=== PATIENT | male | born 1955 | race Hispanic/Latino ===

== ENCOUNTER 2016-09-09 18:29 | Emergency (ER) | payer MEDICAID ==
[2016-09-09 20:22] LABS: Hematocrit 37.1 % (35.5-45.6); Hemoglobin 12.6 gm/dl (11.8-15.2); Mean Corpuscular HGB Conc 34 % (32-34); Mean Corpuscular Hemoglobin 32 pg (28-32); Mean Corpuscular Volume 95 fl (84-94); Platelet Count 218 K/mm3 (140-440); Red Blood Count 3.92 M/mm3 (3.65-5.03); Red Cell Distribution Width 14.4 % (13.2-15.2)
[2016-09-09 20:25] LABS: White Blood Count 22.3 K/mm3 (4.5-11.0)
[2016-09-09 20:41] LABS: Anion Gap 20 mmol/L; BUN/Creatinine Ratio 18.33; Blood Urea Nitrogen 11 mg/dL (9-20); Calcium 8.4 mg/dL (8.4-10.2); Carbon Dioxide 20 mmol/L (22-30); Chloride 91.2 mmol/L (98-107); Glucose 142 mg/dL (75-100); Potassium 3.9 mmol/L (3.6-5.0); Sodium 127 mmol/L (137-145)
[2016-09-09 20:45] LABS: Bacteria,Urine 2+ /HPF (Negative); Bilirubin,Urine NEG (Negative); Blood,Urine MOD (Negative); Ketones,Urine TR mg/dL (Negative); Leukocyte Esterase,Urine MOD (Negative); Mucus,Urine 1+ /HPF; Nitrite,Urine POS (Negative); Urobilinogen,Urine < 2.0 mg/dL (<2.0)
[2016-09-09 21:01] LABS: Basophils % (Manual) 0 % (0.0-1.8); Blastocytes % (Manual) 0 %; Eosinophils % (Manual) 0 % (0.0-4.3)
[2016-09-09 21:02] LABS: Anisocytosis Few; Diff Status Complete
[2016-09-10 02:47] VITALS: BP 125/90
[2016-09-10] MEDS ORDERED: NACL 0.9% 1000 ML 1,000 ML IV ONE (03:48)
--- NOTE | 2016-09-10 03:54 | Emergency Department Report ---
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 Symptoms been going on for last 3 days. The tried some topical medication without significant improvement in symptoms. Had a temperature at home of 99.2. Per the caregiver he is at baseline mental status currently and he is unable to communicate any symptoms. - Related Data Home Medications Medication Instructions Recorded Confirmed Last Taken Calcium Carbonate/Vitamin D3 200 units PO DAILY 12/05/15 12/05/15 12/05/15 [Calcium 500 + D Tablet] Ergocalciferol (Vitamin D2) 2,000 tab PO DAILY 12/05/15 12/05/15 12/05/15 08:00 [Vitamin D2] Multivit with Calcium,Iron,Min 1 tab PO DAILY 12/05/15 12/05/15 12/05/15 [Therapeutic M] OXcarbazepine [Trileptal] 1.5 mg PO BID 12/05/15 12/05/15 12/05/15 08:00 Omeprazole 20 mg PO DAILY 12/05/15 12/05/15 12/05/15 Quetiapine Fumarate [SEROquel XR] 400 mg PO BID 12/05/15 12/05/15 12/05/15 Tamsulosin [Flomax] 0.4 mg PO BID 12/05/15 12/05/15 12/05/15 08:00 Previous Rx's Medication Instructions Recorded Last Taken Type Polyethylene Glycol 3350 [Miralax 17 gm PO QDAY #30 packet 12/04/15 12/05/15 Rx 3350] Lactulose [Cephulac] 20 gm PO QDAY #120 ml 12/05/15 Unknown Rx Ondansetron [Zofran ODT TAB] 8 mg PO Q8HR #20 tab.rapdis 12/05/15 Unknown Rx Ibuprofen [Motrin 800 MG tab] 800 mg PO Q8HR PRN #30 tablet 04/06/16 Unknown Rx Acetaminophen [Acetaminophen TAB] 500 mg PO Q6HR #20 tablet 09/10/16 Unknown Rx Sulfamethoxazole/Trimethoprim 1 each PO BID #14 tablet 09/10/16 Unknown Rx [Bactrim DS TAB] Allergies Allergy/AdvReac Type Severity Reaction Status Date / Time No Known Allergies Allergy Verified 11/09/14 08:41 ED Review of Systems ROS: Stated complaint: RASH/FEVER Other details as noted in HPI Comment: Unobtainable due to pts medical conditions ED Past Medical Hx - Past Medical History Previous Medical History?: Yes Hx Congestive Heart Failure: (Unknown) Hx Diabetes: (Unknown) Hx Deep Vein Thrombosis: No Hx Renal Disease: (urinary retention) Hx Psychiatric Treatment: Yes (MR) Hx Asthma: (Unknown) Hx COPD: (Unknown) Additional medical history: MR. dysphagia. myopia. high cholesterol. chronic constipation - Surgical History Past Surgical History?: Yes Hx Pacemaker: No Hx Internal Defibrillator: No Additional Surgical History: volvulus with partial colectomy. indwelling suprapubic urinary catheter - Social History Smoking Status: Never Smoker Substance Use Type: None - Medications Home Medications: Home Medications Medication Instructions Recorded Confirmed Last Taken Type Polyethylene Glycol 3350 [Miralax 17 gm PO QDAY #30 packet 12/04/15 12/05/15 Rx 3350] Calcium Carbonate/Vitamin D3 200 units PO DAILY 12/05/15 12/05/15 12/05/15 History [Calcium 500 + D Tablet] Ergocalciferol (Vitamin D2) 2,000 tab PO DAILY 12/05/15 12/05/15 12/05/15 08:00 History [Vitamin D2] Lactulose [Cephulac] 20 gm PO QDAY #120 ml 12/05/15 Unknown Rx Multivit with Calcium,Iron,Min 1 tab PO DAILY 12/05/15 12/05/15 12/05/15 History [Therapeutic M] OXcarbazepine [Trileptal] 1.5 mg PO BID 12/05/15 12/05/15 12/05/15 08:00 History Omeprazole 20 mg PO DAILY 12/05/15 12/05/15 12/05/15 History Ondansetron [Zofran ODT TAB] 8 mg PO Q8HR #20 tab.rapdis 12/05/15 Unknown Rx Quetiapine Fumarate [SEROquel XR] 400 mg PO BID 12/05/15 12/05/15 12/05/15 History Tamsulosin [Flomax] 0.4 mg PO BID 12/05/15 12/05/15 12/05/15 08:00 History Ibuprofen [Motrin 800 MG tab] 800 mg PO Q8HR PRN #30 tablet 04/06/16 Unknown Rx Acetaminophen [Acetaminophen TAB] 500 mg PO Q6HR #20 tablet 09/10/16 Unknown Rx Sulfamethoxazole/Trimethoprim 1 each PO BID #14 tablet 09/10/16 Unknown Rx [Bactrim DS TAB] ED Physical Exam - General Limitations: Other (mental retardation) - Head Head exam: Present: atraumatic - Eye Eye exam: Present: normal appearance - ENT ENT exam: Present: mucous membranes dry - Neck Neck exam: Present: other (slight redness across anterior neck) - Respiratory Respiratory exam: Present: other - Cardiovascular Cardiovascular Exam: Present: regular rate, normal rhythm - GI/Abdominal GI/Abdominal exam: Present: soft. Absent: distended, tenderness - Neurological Exam Neurological exam: Present: other (nonsensical words, awake, alert) - Psychiatric Psychiatric exam: Present: normal mood - Skin Skin exam: Present: other (bilateral axilla with macular rash, no significant lymphadenopathy) ED Course Vital Signs 09/09/16 09/10/16 09/10/16 19:54 02:41 02:45 Temperature 98.6 F 97.7 F Pulse Rate 101 H 89 Respiratory 20 18 20 Rate Blood Pressure 126/82 Blood Pressure 125/90 [Left] O2 Sat by Pulse 99 99 99 Oximetry ED Medical Decision Making - Lab Data Result diagrams: 09/09/16 20:14 09/09/16 20:14 - Medical Decision Making Labs show elevated white count but no clear source of serious infection, the maxillary and neck rash may be zoster but no vesicles. The patient's urinalysis does show some bacteria and leukocyte esterase is positive however given that he has a suprapubic cath this may be baseline. Critical care attestation.: If time is entered above; I have spent that time in minutes in the direct care of this critically ill patient, excluding procedure time. ED Disposition Clinical Impression: Cellulitis Qualifiers: Site of cellulitis: unspecified site Qualified Code(s): L03.90 - Cellulitis, unspecified Disposition: DISCHARGED TO HOME OR SELFCARE Is pt being admited?: No Does the pt Need Aspirin: No Condition: Stable Additional Instructions: Please follow up with the primary care physician in the next 3-5 days. Return to the ER if your symptoms significantly worsen or you develop new symptoms. Prescriptions: Acetaminophen [Acetaminophen TAB] 500 mg PO Q6HR #20 tablet Sulfamethoxazole/Trimethoprim [Bactrim DS TAB] 1 each PO BID #14 tablet Referrals: PRIMARY CARE, [Primary Care Provider] - 3-5 Days
--- NOTE | 2016-09-10 07:22 | XRay Report ---
AP CHEST: HISTORY: Pneumonia, fever Compared to 12/04/15. There is poor inspiration. There is subtle airspace opacity in the left lower lobe behind the heart. This could represent an early infiltrate or segmental atelectasis. The remainder of the lungs are clear. No pleural effusion or pneumothorax. Normal heart and mediastinal structures. Colonic interposition is suspected overlying the liver. IMPRESSION: Possible early left lower lobe infiltrate versus segmental atelectasis.
== END 2016-09-10 07:01 | disposition home or self-care (01) ==
LOC: ED 18:29
DX: L03.90 Cellulitis, unspecified (principal); F79 Unspecified intellectual disabilities
CPT/HCPCS: 36415; 71010; 80048; 81001; 85007; 85025; 96360; 99284; J7030

== ENCOUNTER 2016-10-06 20:01 | Inpatient (IN) | payer MEDICAID ==
[2016-10-06 21:32] LABS: Hematocrit 37.2 % (35.5-45.6); Hemoglobin 12.6 gm/dl (11.8-15.2); Mean Corpuscular HGB Conc 34 % (32-34); Mean Corpuscular Hemoglobin 32 pg (28-32); Mean Corpuscular Volume 95 fl (84-94); Platelet Count 274 K/mm3 (140-440); Red Blood Count 3.92 M/mm3 (3.65-5.03); Red Cell Distribution Width 13.9 % (13.2-15.2); White Blood Count 5.7 K/mm3 (4.5-11.0)
[2016-10-06 21:38] LABS: Alanine Aminotransferase 24 units/L (7-56); Albumin 3.9 g/dL (3.9-5); Albumin/Globulin Ratio 1.2 %; Alkaline Phosphatase 60 units/L (35-129); Anion Gap 19 mmol/L; BUN/Creatinine Ratio 13.33; Blood Urea Nitrogen 8 mg/dL (9-20); Calcium 8.9 mg/dL (8.4-10.2); Carbon Dioxide 22 mmol/L (22-30); Chloride 83.5 mmol/L (98-107); Glucose 100 mg/dL (75-100); Lipase 22 units/L (13-60); Potassium 4.4 mmol/L (3.6-5.0); Sodium 120 mmol/L (137-145); Total Protein 7.1 g/dL (6.3-8.2)
[2016-10-06 22:23] LABS: Bacteria,Urine 2+ /HPF (Negative); Bilirubin,Urine NEG (Negative); Blood,Urine MOD (Negative); Ketones,Urine NEG (Negative); Leukocyte Esterase,Urine LG (Negative); Mucus,Urine FEW /HPF; Nitrite,Urine POS (Negative); Urobilinogen,Urine < 2.0 mg/dL (<2.0)
[2016-10-06 22:30] LABS: Anisocytosis 1+; Basophils % (Manual) 0 % (0.0-1.8); Blastocytes % (Manual) 0 %; Diff Status Complete; Platelet Estimate Consistent w Auto
--- NOTE | 2016-10-07 07:32 | Emergency Department Report ---
HPI - General Chief Complaint: Abdominal Pain Time Seen by Provider: 10/07/16 07:15 - HPI HPI: This is a 61-year-old male who presents to the emergency department from his group longterm with complaint of abdominal pain and decreased urine output. The patient has a past medical history of some type of mental retardation for which she [facility]. He also has a history of a suprapubic catheter and some nonspecific bowel surgery in the past. The patient is a poor historian secondary to his history of mental retardation. He is here with a sales account leader who is answering most questions. Despite the fact that he has a suprapubic catheter, the sales account leader says that he has not been putting out much urine and that he appeared only put out about 300 mL over the past 24 hours. He does not communicate but does appear to have grimacing when his abdomen is palpated. The patient was recently admitted to [facility] and discharged earlier in the month for some constipation and abdominal pain issues at that time. No recent travel. ED Past Medical Hx - Past Medical History Hx Congestive Heart Failure: (Unknown) Hx Diabetes: (Unknown) Hx Deep Vein Thrombosis: No Hx Renal Disease: (urinary retention) Hx Psychiatric Treatment: Yes (MR) Hx Asthma: (Unknown) Hx COPD: (Unknown) Additional medical history: MR. dysphagia. myopia. high cholesterol. chronic constipation - Surgical History Hx Pacemaker: No Hx Internal Defibrillator: No Additional Surgical History: volvulus with partial colectomy. indwelling suprapubic urinary catheter - Social History Smoking Status: Never Smoker - Medications Home Medications: Home Medications Medication Instructions Recorded Confirmed Last Taken Type Calcium Carbonate/Vitamin D3 200 units PO DAILY #30 tablet 10/01/16 Unknown Rx [Calcium 500 + D Tablet] Ergocalciferol (Vitamin D2) 2,000 tab PO DAILY #30 tablet 10/01/16 Unknown Rx [Vitamin D2] Haloperidol [Haldol] 2 mg PO Q8H PRN #90 tablet 10/01/16 Unknown Rx Hydrochlorothiazide [HCTZ] 25 mg PO QDAY #30 tablet 10/01/16 Unknown Rx Lactulose [Cephulac] 20 gm PO QDAY #120 ml 10/01/16 Unknown Rx Lisinopril [Zestril TAB] 40 mg PO QDAY #30 tablet 10/01/16 Unknown Rx Magnesium Hydroxide [Milk of 30 ml PO Q4H PRN #30 oral.liqd 10/01/16 Unknown Rx Magnesia] Multivit with Calcium,Iron,Min 1 tab PO DAILY #30 tablet 10/01/16 Unknown Rx [Therapeutic M] OXcarbazepine [Trileptal] 450 mg PO BID #60 tablet 10/01/16 Unknown Rx Pantoprazole [Protonix TAB] 20 mg PO QDAY #30 tablet. 10/01/16 Unknown Rx Polyethylene Glycol 3350 [Miralax 17 gm PO QDAY #30 packet 10/01/16 Unknown Rx 3350] QUEtiapine [SEROquel] 400 mg PO BID #60 tablet 10/01/16 Unknown Rx Tamsulosin [Flomax] 0.4 mg PO BID #60 capsule 10/01/16 Unknown Rx ED Review of Systems ROS: Stated complaint: DIFFICULTY URINATING, COUGH Other details as noted in HPI Comment: Unobtainable due to pts medical conditions Physical Exam - Physical Exam Vital Signs: Vital Signs 10/06/16 10/07/16 10/07/16 20:42 07:17 07:18 Temperature 97.8 F 97.7 F Pulse Rate 111 H 85 Respiratory 18 23 20 Rate Blood Pressure 133/93 Blood Pressure 128/94 [Left] O2 Sat by Pulse 96 98 98 Oximetry Physical Exam: GENERAL: The patient is well-developed well-nourished. HEENT: Normocephalic. Atraumatic. Extraocular motions are intact. Patient has moist mucous membranes. Pupils equal reactive to light bilaterally. NECK: Supple. Trachea is midline. CHEST/LUNGS: Clear to auscultation. There is no respiratory distress noted. HEART/CARDIOVASCULAR: Regular. There is no tachycardia. There is no gallop rub or murmur. ABDOMEN: Abdomen is soft. There is some tenderness to palpation to the lower quadrants of the abdomen. Patient has normal bowel sounds. There is no abdominal distention. Suprapubic Hurtado catheter in place but no signs of infection. SKIN: Skin is warm and dry. NEURO: Patient is awake. He is making sounds but they are not comprehensible. However this appears to be baseline for this patient. Withdraws to painful stimuli. MUSCULOSKELETAL: There is no tenderness or deformity. There is no evidence of acute injury. ED Course Vital Signs 10/06/16 10/07/16 10/07/16 20:42 07:17 07:18 Temperature 97.8 F 97.7 F Pulse Rate 111 H 85 Respiratory 18 23 20 Rate Blood Pressure 133/93 Blood Pressure 128/94 [Left] O2 Sat by Pulse 96 98 98 Oximetry ED Medical Decision Making - Lab Data Result diagrams: 10/06/16 20:58 10/06/16 20:58 - Radiology Data Radiology results: report reviewed Bilateral renal ultrasound does not show any significant abnormalities to the kidneys, ureters or bladder. A suprapubic Hurtado catheter is seen in place into the bladder. There are some echogenic foci that could be intrarenal stones but no hydronephrosis. ABDOMEN, 2 views: History: Abdominal pain. Compared to 09/22/16. Marked gaseous distention of the colon is again seen on today's exam. There is no evidence for significant fecal retention. This distention has been documented on many previous studies and may represent [place] syndrome. No dilated small bowel loops are identified. No free air is detected. The organ shadows are predominantly obscured by the large amount of gas in the colon. Minor patchy infiltrate or segmental atelectasis is noted at the left lung base. IMPRESSION: Prominent gas-filled colon as described. If there is concern for obstruction, CT with IV and oral contrast is recommended. See above. - Medical Decision Making 61-year-old male presents with some abdominal discomfort, decreased urine output from his [facility]. They say he put out about 300 mL of urine in the past 24 hours. There is some urine being collected in the back but it is not a large amount. Urinalysis does not show a significant urinary tract infection. There is some hematuria microscopically. His labs are abnormal for significant hyponatremia. Renal ultrasound did not show any hydronephrosis or obstruction. Abdominal x-ray does show some dilated gas filled intestines but it is consistent with previous visits and his abdomen is soft. He will be admitted for the hyponatremia. - Differential Diagnosis hydronephrosis, nephrolithiasis, UTI, diabetes insipidus Critical Care Time: No Critical care attestation.: If time is entered above; I have spent that time in minutes in the direct care of this critically ill patient, excluding procedure time. ED Disposition Clinical Impression: Acute hyponatremia Abdominal pain Qualifiers: Abdominal location: lower abdomen, unspecified Qualified Code(s): R10.30 - Lower abdominal pain, unspecified Disposition: -09 OP ADMIT IP TO THIS HOSP Is pt being admited?: Yes Condition: Stable Referrals: PRIMARY CARE, [Primary Care Provider] - 3-5 Days Time of Disposition: 09:44
--- NOTE | 2016-10-07 07:52 | XRay Report ---
ABDOMEN, 2 views: History: Abdominal pain. Compared to 09/22/16. Marked gaseous distention of the colon is again seen on today's exam. There is no evidence for significant fecal retention. This distention has been documented on many previous studies and may represent [place] syndrome. No dilated small bowel loops are identified. No free air is detected. The organ shadows are predominantly obscured by the large amount of gas in the colon. Minor patchy infiltrate or segmental atelectasis is noted at the left lung base. IMPRESSION: Prominent gas-filled colon as described. If there is concern for obstruction, CT with IV and oral contrast is recommended. See above.
--- NOTE | 2016-10-07 08:52 | Admit Criteria Form ---
Admission Criteria Documentation: HYPONATREMIA; HYPERNATREMIA; HYPOKALEMIA; HYPERKALEMIA; HYPOCALCEMIA; HYPERCALCEMIA Clinical Indications for Inpatient Care (Place 'X' for any and all applicable criteria): Ongoing inpatient care may be indicated for ANY ONE of the following [G](1)(2)(3 )(5): [X]I. Hyponatremia with ANY ONE of the following: [X]a) Sodium less than 130 mEq/L (mmol/L) (new) (6)(22) [ ]b) Sodium less than 135 mEq/L (mmol/L) with ANY ONE of the following: [ ]i) Severe medical etiology requiring inpatient management (eg, heart failure, hypovolemia) [ ]ii) Altered mental status [ ]iii) Seizures [ ]II. Hypernatremia with ANY ONE of the following: [ ]a) Sodium greater than 155 mEq/L (mmol/L) [ ]b) Sodium greater than 150 mEq/L (mmol/L) with ANY ONE of the following: [ ] i) Altered mental status [ ]ii) Seizures [ ]iii) Severe medical etiology (eg, hypovolemia, diabetes insipidus) [ ]iv) Severe weakness [ ]v) Severe medical etiology (eg, hemolysis, infection, drug overdose) [ ]III. Hypokalemia with ANY ONE of the following: [ ]a) Potassium less than 2.5 mEq/L (mmol/L) despite outpatient and emergency treatment [ ]b) Potassium less than 3.0 mEq/L (mmol/L) with ANY ONE of the following: [ ]i) Weakness [ ]ii) Cardiac abnormality (eg, arrhythmia, conduction disturbance) [ ]iii) Cardiac ischemia [ ]iv) Ileus [ ]v) Ongoing medical cause requiring inpatient management. ( e.g., acute renal wasting, SIADH) [ ]vi) Other severe symptoms [ ] IV. Hyperkalemia with ANY ONE of the following: [ ]a) Potassium greater than 6.5 mEq/L (mmol/L) [ ]b) Potassium greater than 5 mEq/L (mmol/L) with ANY ONE of the following: [ ]i) Severe ECG findings [H] [ ]ii) Acute worsening of renal failure (creatinine greater than 2.5 mg/dL (221 micromoles/L) or significant elevation for age and size) [ ] V. Hypocalcemia with ANY ONE of the following: [ ]a) Calcium less than 7 mg/dL (1.75 mmol/L) despite outpatient and emergency treatment(19) [ ]b) Calcium less than 8 mg/dL (2 mmol/L) with significant symptoms or findings; examples include: [ ]i) Cardiac abnormality (eg, arrhythmia or conduction disturbance) [ ]ii) Altered mental status [ ]iii) Seizures [ ]iv) Breathing difficulty [ ]v) Muscle spasms [ ]. Hypercalcemia with ANY ONE of the following: [ ]a) Calcium greater than 14 mg/dL (3.5 mmol/L) [ ]b) Calcium greater than 12 mg/dL (3 mmol/L) with ANY ONE of the following: [ ]i) Significant dehydration or hypovolemia as indicated by ANY ONE of the following(2): [ ]1. Clinically significant dehydration as indicated by ANY ONE of the following: [ ]A. Acute loss of weight from baseline (5% of body weight in adults, 9% in pediatric patients) [ ]B. Hemodynamic instability [ ]C. Acute renal failure [ ]D. Serum sodium greater than 150 mEq/L (mmol/L) [ ]2) Dehydration that is persistent indicated by ALL of the following: [ ]A. Oral rehydration therapy not tolerated or insufficient to adequately correct dehydration [ ]B. Appropriate intravenous treatment (eg, fluids ) does not readily correct dehydration ie, after 12 to 24 hours of treatment) [ ]ii) Significant symptoms or findings; examples include: [ ]1) Altered mental status [ ]2) Cardiac abnormality (eg, arrhythmia, conduction disturbance) [ ]3) Cardiac abnormality (eg, arrhythmia, conduction disturbance) The original [facility] content created by [employer] has been revised. The portions of the content which have been revised are identified through the use of italic text or in bold, and [facility] has neither reviewed nor approved the modified material. All other unmodified content is copyright [facility] [employer] Please see references footnoted in the original [facility] [employer] edition 2016 Admission Criteria Met: Yes
--- NOTE | 2016-10-07 09:11 | Ultrasound Report ---
Renal ultrasound. History: Anuria and abdominal pain. Findings: The right kidney measures 11.8 cm in longitudinal axis and the left kidney measures 11.3 cm. There are no masses or hydronephrosis. The cortical thickness is normal. A single echogenic focus is seen in each kidney, possibly representing calculi. A Hurtado catheter seen within the urinary bladder which is otherwise unremarkable. Impression: Small echogenic foci within each kidney, possibly representing renal stones. There is no hydronephrosis.
[2016-10-07] MEDS ORDERED: NACL 0.9% 1000 ML 1,000 ML IV ONE (09:42)
[2016-10-07] MEDS ORDERED: DULCOLAX PR PRN (10:42)
[2016-10-07] MEDS ORDERED: ZOFRAN IV PRN (10:42)
[2016-10-07] MEDS ORDERED: TYLENOL PO PRN (10:42)
[2016-10-07] MEDS ORDERED: MILK OF MAGNESIA PO PRN (10:42)
[2016-10-07] MEDS ORDERED: NACL 0.9% 1000 ML 1,000 ML IV SCH (11:00)
[2016-10-07] MEDS ORDERED: ATIVAN IV ONE (11:04)
--- NOTE | 2016-10-07 11:06 | History and Physical Report ---
History of Present Illness Date of examination: 10/07/16 Date of admission: 10/07/16 Chief complaint: Low Sodium level History of present illness: A 61-year-old male presented to the ED via EMS from his [place] [facility] with complaint of abdomen pain and decreased urine output. Per patient's quality control technician, patient has had a decreased urine output of 300 mL over 24-hour. Patient is also found to be hyponatremia. Patient's past medical history suprapubic catheter, mental retardation, hyperlipidemia. Patient is alert, non verbal communication, but will grimace when palpating the abdominal. Past History Past Medical History: hyperlipidemia (Mental Retardation), other Past Surgical History: Other (Suprapubic catheter placement) Social history: no significant social history Family history: other (unable to obtain) Medications and Allergies Allergies Allergy/AdvReac Type Severity Reaction Status Date / Time No Known Allergies Allergy Verified 09/21/16 10:56 Home Medications Medication Instructions Recorded Confirmed Last Taken Type Calcium Carbonate/Vitamin D3 200 units PO DAILY #30 tablet 10/01/16 10/07/16 Unknown Rx [Calcium 500 + D Tablet] Ergocalciferol (Vitamin D2) 2,000 tab PO DAILY #30 tablet 10/01/16 10/07/16 Unknown Rx [Vitamin D2] Haloperidol [Haldol] 2 mg PO Q8H PRN #90 tablet 10/01/16 10/07/16 Unknown Rx Hydrochlorothiazide [HCTZ] 25 mg PO QDAY #30 tablet 10/01/16 10/07/16 Unknown Rx Lactulose [Cephulac] 20 gm PO QDAY #120 ml 10/01/16 10/07/16 Unknown Rx Lisinopril [Zestril TAB] 40 mg PO QDAY #30 tablet 10/01/16 10/07/16 Unknown Rx Magnesium Hydroxide [Milk of 30 ml PO Q4H PRN #30 oral.liqd 10/01/16 10/07/16 Unknown Rx Magnesia] Multivit with Calcium,Iron,Min 1 tab PO DAILY #30 tablet 10/01/16 10/07/16 Unknown Rx [Therapeutic M] OXcarbazepine [Trileptal] 450 mg PO BID #60 tablet 10/01/16 10/07/16 Unknown Rx Pantoprazole [Protonix TAB] 20 mg PO QDAY #30 tablet. 10/01/16 10/07/16 Unknown Rx Polyethylene Glycol 3350 [Miralax 17 gm PO QDAY #30 packet 10/01/16 10/07/16 Unknown Rx 3350] QUEtiapine [SEROquel] 400 mg PO BID #60 tablet 10/01/16 10/07/16 Unknown Rx Tamsulosin [Flomax] 0.4 mg PO BID #60 capsule 10/01/16 10/07/16 Unknown Rx Active Meds: Active Medications Acetaminophen (Tylenol) 650 mg PO Q4H PRN PRN Reason: Pain MILD(1-3)/Fever >100.5/VIDAL Bisacodyl (Dulcolax) 10 mg HI QDAY PRN PRN Reason: Constipation unrelieved by MOM Sodium Chloride (Nacl 0.9% 1000 Ml) 1,000 mls @ 100 mls/hr IV DIRECT NORBERTO Magnesium Hydroxide (Milk Of Magnesia) 30 ml PO Q4H PRN PRN Reason: Constipation Ondansetron HCl (Zofran) 4 mg IV Q4H PRN PRN Reason: Nausea And Vomiting Review of Systems ROS unobtainable: due to mental status Exam - Constitutional Vitals: Temp Pulse Resp BP Pulse Ox 97.7 F 85 20 128/94 98 10/07/16 07:17 10/07/16 07:17 10/07/16 07:18 10/07/16 07:17 10/07/16 07:18 General appearance: Present: no acute distress, well-nourished - EENT Eyes: Present: PERRL ENT: hearing intact, clear oral mucosa - Respiratory Respiratory effort: normal Respiratory: bilateral: CTA - Cardiovascular Rhythm: regular Heart Sounds: Present: S1 & S2. Absent: rub, click Peripheral Pulses: within normal limits - Abdominal General gastrointestinal: Present: soft, non-tender, non-distended, normal bowel sounds - Integumentary Integumentary: Present: clear, warm, dry - Musculoskeletal Musculoskeletal: gait normal, strength equal bilaterally - Neurologic Neurologic: moves all extremities - Allied Health Allied health notes reviewed: nursing Results - Labs CBC & Chem 7: 10/08/16 07:01 10/08/16 07:01 Labs: Abnormal lab results 10/06/16 10/06/16 10/06/16 Range/Units 20:50 20:58 20:58 MCV 95 H (84-94) fl Lymphocytes % (Manual) 12.0 L (13.4-35.0) % Lymphocytes # (Manual) 0.7 L (1.2-5.4) K/mm3 Sodium 120 L (137-145) mmol/L Chloride 83.5 L (98-107) mmol/L BUN 8 L (9-20) mg/dL Creatinine 0.6 L (0.8-1.5) mg/dL Urine WBC (Auto) 10.0 H (0.0-6.0) /HPF Renal US - Small acted genic foci with each kidney, possibility representing renal stones no hydronephrosis - Imaging and Cardiology Abdominal x-ray: image reviewed (prominent gas air filled colon. Concern for possible obstruction. CT with IV or oral contrast is recommended.) Assessment and Plan A 61-year-old male presented to the ED via EMS from his [place] [facility] with complaint of abdomen pain and decreased urine output. Per patient's quality control technician, patient has had a decreased urine output of 300 mL over 24-hour. Patient is also found to be hyponatremia. Patient's past medical history suprapubic catheter, mental retardation, and hyperlipidemia. Patient is alert, non verbal communication, but grimaces when palpating the abdomin. -Acute abdomen pain- due to possible bowel obstruction versus gas filled colon vs renal stone, abdomen XR and renal ultrasound done in the ED, will obtain CT abdomen for possible bowel obstructions vs renal stone. Will keep NPO for now. -Hyponatremia-normal saline IV fluids hydration ordered, Seizure precautions, Ativan IV, PRN for seizures ordered and will follow up with repeated labs labs -UTI -possible acute cystitis- Emperic Antibiotis ordered, urine cultures ordered, supportive care -DVT prophylaxis- Heparin SQ ordered
[2016-10-07 21:43] LABS: Alanine Aminotransferase 24 units/L (7-56); Albumin 3.7 g/dL (3.9-5); Albumin/Globulin Ratio 1.1 %; Alkaline Phosphatase 67 units/L (35-129); Anion Gap 19 mmol/L; BUN/Creatinine Ratio 13.33; Blood Urea Nitrogen 8 mg/dL (9-20); Calcium 8.8 mg/dL (8.4-10.2); Carbon Dioxide 23 mmol/L (22-30); Chloride 94.7 mmol/L (98-107); Glucose 99 mg/dL (75-100); Potassium 4.2 mmol/L (3.6-5.0); Sodium 132 mmol/L (137-145); Total Protein 7.1 g/dL (6.3-8.2)
[2016-10-07] MEDS: ROCEPHIN/NS 1 GM/50 ML 1 GM/50 ML BAG IV SCH (22:04)
[2016-10-07] MEDS: ATIVAN IV PRN (22:05)
[2016-10-07] MEDS: HEPARIN SUB-Q SCH (22:06)
[2016-10-08 08:09] LABS: Basophils % (Auto) 0.7 % (0.0-1.8); Hematocrit 39.1 % (35.5-45.6); Hemoglobin 13.2 gm/dl (11.8-15.2); Mean Corpuscular HGB Conc 34 % (32-34); Mean Corpuscular Hemoglobin 32 pg (28-32); Mean Corpuscular Volume 94 fl (84-94); Platelet Count 307 K/mm3 (140-440); Red Blood Count 4.17 M/mm3 (3.65-5.03); Red Cell Distribution Width 13.6 % (13.2-15.2); White Blood Count 5.4 K/mm3 (4.5-11.0)
[2016-10-08 08:19] LABS: Anion Gap 21 mmol/L; Blood Urea Nitrogen 8 mg/dL (9-20); Calcium 8.7 mg/dL (8.4-10.2); Carbon Dioxide 19 mmol/L (22-30); Chloride 98.1 mmol/L (98-107); Glucose 117 mg/dL (75-100); Potassium 3.9 mmol/L (3.6-5.0); Sodium 134 mmol/L (137-145)
[2016-10-08] MEDS: D5NS 1,000 ML IV SCH (10:15)
[2016-10-08] MEDS: HEPARIN SUB-Q SCH ×2 (10:16→23:16)
--- NOTE | 2016-10-08 12:16 | Cat Scan Report ---
CT scan of abdomen and pelvis without IV contrast: History: Possible bowel obstruction. Findings: Normal lung bases. No pleural pericardial effusion. Moderate size sliding hiatal hernia. Normal liver spleen pancreas. Gallbladder not visualized. Normal adrenals and kidney parenchyma and bladder. No free intraperitoneal fluid or. No evidence of adenopathy. There is fluid noted in the distended rectum. There is moderate distended colon with air including transverse colon and ascending colon. No distention of small bowel. Stool in ascending colon. No evidence of appendicitis or diverticulitis. Impression: Findings as detailed above. Probable obstruction at anorectal region. Clinical correlation is advised.
[2016-10-08] MEDS ORDERED: FLEET PR ONE (15:00)
--- NOTE | 2016-10-08 15:56 | Gastroenterology Consultation ---
History of Present Illness - Reason for Consult Consult date: 10/08/16 bowel obstruction Requesting physician: ANGELICA JENKINS - History of Present Illness Mr Padilla is a 61 yo male with developmental delay who presents from [facility] with altered mental status. patient unable to provide history and information gathered primarily from chart review. patient has had h/o fecal impaction in the past, most recently [address] findings show suspect ano- rectal obstruction. No reported nausea/vomiting or complaints of abdominal pain (although pt non-verbal). On previous admission for similar issues, he responded well to golytely. Pt noted to also have severe hyponatremia on admission which has since improved. Past History Past Medical History: hyperlipidemia (Mental Retardation), other (developmental daily) Past Surgical History: Other (Suprapubic catheter placement) Social history: no significant social history Family history: other (unable to obtain) Medications and Allergies Allergies Allergy/AdvReac Type Severity Reaction Status Date / Time No Known Allergies Allergy Verified 09/21/16 10:56 Home Medications Medication Instructions Recorded Confirmed Last Taken Type Calcium Carbonate/Vitamin D3 200 units PO DAILY #30 tablet 10/01/16 10/07/16 Unknown Rx [Calcium 500 + D Tablet] Ergocalciferol (Vitamin D2) 2,000 tab PO DAILY #30 tablet 10/01/16 10/07/16 Unknown Rx [Vitamin D2] Haloperidol [Haldol] 2 mg PO Q8H PRN #90 tablet 10/01/16 10/07/16 Unknown Rx Hydrochlorothiazide [HCTZ] 25 mg PO QDAY #30 tablet 10/01/16 10/07/16 Unknown Rx Lactulose [Cephulac] 20 gm PO QDAY #120 ml 10/01/16 10/07/16 Unknown Rx Lisinopril [Zestril TAB] 40 mg PO QDAY #30 tablet 10/01/16 10/07/16 Unknown Rx Magnesium Hydroxide [Milk of 30 ml PO Q4H PRN #30 oral.liqd 10/01/16 10/07/16 Unknown Rx Magnesia] Multivit with Calcium,Iron,Min 1 tab PO DAILY #30 tablet 10/01/16 10/07/16 Unknown Rx [Therapeutic M] OXcarbazepine [Trileptal] 450 mg PO BID #60 tablet 06/21/17 06/27/17 Unknown Rx Pantoprazole [Protonix TAB] 20 mg PO QDAY #30 tablet. 10/01/16 10/07/16 Unknown Rx Polyethylene Glycol 3350 [Miralax 17 gm PO QDAY #30 packet 10/01/16 10/07/16 Unknown Rx 3350] QUEtiapine [SEROquel] 400 mg PO BID #60 tablet 10/01/16 10/07/16 Unknown Rx Tamsulosin [Flomax] 0.4 mg PO BID #60 capsule 10/01/16 10/07/16 Unknown Rx Active Meds: Active Medications Acetaminophen (Tylenol) 650 mg PO Q4H PRN PRN Reason: Pain MILD(1-3)/Fever >100.5/VIDAL Bisacodyl (Dulcolax) 10 mg UT QDAY PRN PRN Reason: Constipation unrelieved by MOM Heparin Sodium (Porcine) (Heparin) 5,000 unit SUB-Q Q12HR NORBERTO Last Admin: 10/08/16 10:16 Dose: 5,000 unit Ceftriaxone Sodium (Rocephin/Ns 1 Gm/50 Ml) 1 gm in 50 mls @ 100 mls/hr IV Q24H NORBERTO PRN Reason: Protocol Last Admin: 10/07/16 22:04 Dose: 100 mls/hr Dextrose/Sodium Chloride (D5ns) 1,000 mls @ 100 mls/hr IV DIRECT NORBERTO Last Admin: 10/08/16 10:15 Dose: 100 mls/hr Lorazepam (Ativan) 2 mg IV Q2H PRN PRN Reason: Seizures Last Admin: 10/07/16 22:05 Dose: 2 mg Magnesium Hydroxide (Milk Of Magnesia) 30 ml PO Q4H PRN PRN Reason: Constipation Ondansetron HCl (Zofran) 4 mg IV Q4H PRN PRN Reason: Nausea And Vomiting Review of Systems - Review of Systems ROS unobtainable: due to mental status Exam - Exam Narrative Exam: Gen: NAD, non-verbal, unable to answer questions Head: nc/at Mouth: no oral lesions Eyes: anicteric CV: RRR, no murmurs Lungs: CTAB, non labored Abd: soft, nd, nt, hypoactive bs Ext: no c/c/e + mora catheter - Constitutional Vital Signs: Temp Pulse Resp BP Pulse Ox 98.0 F 77 18 138/82 97 06/28/17 13:04 10/08/16 13:04 10/08/16 13:04 10/08/16 13:04 10/08/16 08:08 - Labs CBC & Chem 7: 10/08/16 07:01 10/09/16 08:13 Lab Results: Laboratory Results - last 24 hr 10/07/16 10/08/16 10/08/16 20:34 07:01 07:01 WBC 5.4 RBC 4.17 Hgb 13.2 Hct 39.1 MCV 94 MCH 32 MCHC 34 RDW 13.6 Plt Count 307 Lymph % (Auto) 15.3 Gage % (Auto) 12.6 H Eos % (Auto) 1.0 Baso % (Auto) 0.7 Lymph # 0.8 L Gage # 0.7 Eos # 0.1 Baso # 0.0 Seg Neutrophils % 70.4 H Seg Neutrophils # 3.8 Sodium 132 L D 134 L Potassium 4.2 3.9 Chloride 94.7 L 98.1 Carbon Dioxide 23 19 L Anion Gap 19 21 BUN 8 L 8 L Creatinine 0.6 L 0.5 L Estimated GFR > 60 > 60 BUN/Creatinine Ratio 13.33 16.00 Glucose 99 117 H Calcium 8.8 8.7 Total Bilirubin 0.40 AST 39 ALT 24 Alkaline Phosphatase 67 Total Protein 7.1 Albumin 3.7 L Albumin/Globulin Ratio 1.1 Assessment and Plan 1. Ano-rectal obstruction - suspect 2/2 fecal impaction vs chronic pseudo- obstruction. One enema has been ordered, and oral bowel regimen has been started. Abdominal exam is unremarkable at the time of exam. Repeat KUB in the morning. If no significant improvement, may need NG tube to LIS depending on progress. Will cont to follow.
--- NOTE | 2016-10-08 16:16 | XRay Report ---
KUB: 10/08/16 14:21:00 CLINICAL: Abdominal pain. Followup abdominal distention. COMPARISON: 10/07/16 FINDINGS: Interval improvement with decreased distention of both small bowel and colon compared to the prior exam. The ascending, transverse and descending colon are minimally distended. Persistent dilatation of a redundant sigmoid colon. No pneumoperitoneum. Minimal rectal gas. IMPRESSION: Interval improvement with decreased bowel distention. No bowel obstruction.
--- NOTE | 2016-10-08 16:35 | Progress Note ---
Assessment and Plan A 61-year-old male presented to the ED via EMS from his assisted with complaint of abdomen pain and decreased urine output. Per patient's math specialist, patient has had a decreased urine output of 300 mL over 24-hour. Patient is also found to be hyponatremic and possible SBO in the ER. -Acute abdomen pain - likely due to possible bowel obstruction versus gas filled colon vs renal stone, abdomen XR and renal ultrasound done in the ED, - CT abdomen showed obstruction at the anorectal junction, no renal stone was found, Dr tsai recommended enema. NPO for now, iv D5/NS -Hyponatremia -cont IV fluids hydration, improved -UTI -possible acute cystitis - On Emperic Antibiotis ordered, follow urine cultures -DVT prophylaxis- Heparin SQ ordered Subjective Date of service: 10/08/16 Interval history: Pt seen and examined non verbal but does not have any complaint Objective - Exam Narrative Exam: General appearance: Present: no acute distress, well-nourished - EENT Eyes: Present: PERRL ENT: hearing intact, clear oral mucosa - Respiratory Respiratory effort: normal Respiratory: bilateral: CTA - Cardiovascular Rhythm: regular Heart Sounds: Present: S1 & S2. Absent: rub, click Peripheral Pulses: within normal limits - Abdominal General gastrointestinal: Present: soft, non-tender, non-distended, normal bowel sounds - Integumentary Integumentary: Present: clear, warm, dry - Musculoskeletal Musculoskeletal: gait normal, strength equal bilaterally - Neurologic Neurologic: moves all extremities - Constitutional Vitals: Vital Signs - 12hr 10/08/16 10/08/16 10/08/16 08:08 08:30 13:04 Temperature 98.6 F 98.0 F Pulse Rate 89 Pulse Rate [ 79 77 Left Radial] Respiratory 20 18 Rate Blood Pressure 139/93 138/82 [Left Arm] O2 Sat by Pulse 97 Oximetry - Labs CBC & Chem 7: 10/08/16 07:01 10/08/16 07:01 Labs: Abnormal lab results 10/07/16 10/08/16 10/08/16 Range/Units 20:34 07:01 07:01 [place] % (Auto) 12.6 H (0.0-7.3) % Lymph # 0.8 L (1.2-5.4) K/mm3 Seg Neutrophils % 70.4 H (40.0-70.0) % Sodium 132 L D 134 L (137-145) mmol/L Chloride 94.7 L (98-107) mmol/L Carbon Dioxide 19 L (22-30) mmol/L BUN 8 L 8 L (9-20) mg/dL Creatinine 0.6 L 0.5 L (0.8-1.5) mg/dL Glucose 117 H (75-100) mg/dL Albumin 3.7 L (3.9-5) g/dL
[2016-10-08] MEDS ORDERED: CITRATE OF MAGNESIA PO ONE (17:00)
[2016-10-08] MEDS: ROCEPHIN/NS 1 GM/50 ML 1 GM/50 ML BAG IV SCH (23:15)
[2016-10-09] MEDS: D5NS 1,000 ML IV SCH ×2 (03:12→14:37)
[2016-10-09] MEDS ORDERED: MILK OF MAGNESIA PO PRN (08:07)
[2016-10-09] MEDS ORDERED: HALDOL PO PRN (08:07)
--- NOTE | 2016-10-09 09:21 | XRay Report ---
Portable KUB: Comparison is made to the prior study of October 08. There still generalized increased gaseous distention of small and proximal large bowel loops. A focally dilated loop in the right lower quadrant has decreased gas compared to prior study however there is no outline of a new largest soft tissue density in the pelvis. No free air and no intramural air noted. Impression: Unexplained new soft tissue density in the pelvis. General improvement in focally dilated right lower quadrant.
[2016-10-09 09:45] LABS: Anion Gap 18 mmol/L; Blood Urea Nitrogen 6 mg/dL (9-20); Calcium 8.7 mg/dL (8.4-10.2); Carbon Dioxide 20 mmol/L (22-30); Chloride 104.3 mmol/L (98-107); Glucose 103 mg/dL (75-100); Potassium 3.7 mmol/L (3.6-5.0); Sodium 139 mmol/L (137-145)
[2016-10-09] MEDS ORDERED: CALCIUM CARBONATE PO SCH (10:00)
[2016-10-09] MEDS ORDERED: VITAMIN D3 PO SCH (10:00)
[2016-10-09] MEDS ORDERED: HCTZ PO SCH (10:00)
[2016-10-09] MEDS ORDERED: ERGOCALCIFEROL PO SCH (10:00)
[2016-10-09] MEDS ORDERED: MULTIVIT WITH CALCIUM IRON MIN PO SCH (10:00)
[2016-10-09] MEDS: PROTONIX PO SCH (10:03)
[2016-10-09] MEDS: FLOMAX PO SCH ×2 (10:03→22:10)
[2016-10-09] MEDS: ZESTRIL PO SCH (10:03)
[2016-10-09] MEDS: TRILEPTAL PO SCH ×2 (10:04→22:10)
[2016-10-09] MEDS: HEPARIN SUB-Q SCH ×2 (10:04→22:09)
[2016-10-09] MEDS: MIRALAX 3350 PO SCH (10:04)
[2016-10-09] MEDS: CEPHULAC PO SCH (10:07)
[2016-10-09] MEDS: THERAGRAN-M Tab PO SCH (11:36)
[2016-10-09] MEDS: VITAMIN D3 PO SCH (12:38)
--- NOTE | 2016-10-09 15:26 | Progress Note ---
Assessment and Plan A 61-year-old male presented to the ED via EMS from his longterm with complaint of abdomen pain and decreased urine output. Per patient's taping machine operator, patient has had a decreased urine output of 300 mL over 24-hour. Patient is also found to be hyponatremic and possible SBO in the ER. -Acute abdomen pain - likely due to possible bowel obstruction versus gas filled colon vs renal stone, abdomen XR and renal ultrasound done in the ED, - CT abdomen showed obstruction at the anorectal junction, no renal stone was found, Dr tsai recommended enema. had BM, abdominal xr improved distension - will start on diet -Hyponatremia -cont IV fluids hydration, improved -UTI -possible acute cystitis - On Emperic Antibiotis ordered, follow urine cultures -DVT prophylaxis- Heparin SQ ordered Subjective Date of service: 10/09/16 Interval history: Pt seen and examined non verbal but does not have any complaint Objective - Exam Narrative Exam: General appearance: Present: no acute distress, well-nourished - EENT Eyes: Present: PERRL ENT: hearing intact, clear oral mucosa - Respiratory Respiratory effort: normal Respiratory: bilateral: CTA - Cardiovascular Rhythm: regular Heart Sounds: Present: S1 & S2. Absent: rub, click Peripheral Pulses: within normal limits - Abdominal General gastrointestinal: Present: soft, non-tender, non-distended, normal bowel sounds - Integumentary Integumentary: Present: clear, warm, dry - Musculoskeletal Musculoskeletal: gait normal, strength equal bilaterally - Neurologic Neurologic: moves all extremities - Constitutional Vitals: Vital Signs - 12hr 10/09/16 10/09/16 10/09/16 04:45 08:01 11:51 Temperature 98.6 F 97.2 F L Pulse Rate 83 Pulse Rate [ 78 81 Left Radial] Respiratory 18 18 Rate Blood Pressure 166/86 154/99 [Left Arm] O2 Sat by Pulse Oximetry 10/09/16 12:10 Temperature Pulse Rate Pulse Rate [ 81 Left Radial] Respiratory 18 Rate Blood Pressure [Left Arm] O2 Sat by Pulse 96 Oximetry - Labs CBC & Chem 7: 10/08/16 07:01 10/09/16 08:13 Labs: Abnormal lab results 10/09/16 Range/Units 08:13 Carbon Dioxide 20 L (22-30) mmol/L BUN 6 L (9-20) mg/dL Creatinine 0.6 L (0.8-1.5) mg/dL Glucose 103 H (75-100) mg/dL
[2016-10-09] MEDS: ATIVAN IV PRN (22:09)
[2016-10-09] MEDS: ROCEPHIN/NS 1 GM/50 ML 1 GM/50 ML BAG IV SCH (22:19)
[2016-10-10] MEDS: ATIVAN IV PRN ×4 (01:47→22:29)
[2016-10-10] MEDS: D5NS 1,000 ML IV SCH ×3 (01:48→22:34)
[2016-10-10] MEDS: TRILEPTAL PO SCH ×2 (09:36→22:28)
[2016-10-10] MEDS: PROTONIX PO SCH (09:37)
[2016-10-10] MEDS: THERAGRAN-M Tab PO SCH (09:38)
[2016-10-10] MEDS: ZESTRIL PO SCH (09:38)
[2016-10-10] MEDS: OYSCO D 500 MG-200 UNIT PO SCH (09:38)
[2016-10-10] MEDS: VITAMIN D3 PO SCH (09:39)
[2016-10-10] MEDS: MIRALAX 3350 PO SCH (09:39)
[2016-10-10] MEDS: FLOMAX PO SCH ×2 (09:39→22:28)
[2016-10-10] MEDS: CEPHULAC PO SCH (09:39)
[2016-10-10] MEDS ORDERED: CALTRATE PLUS PO SCH (10:00)
[2016-10-10] MEDS: HEPARIN SUB-Q SCH ×2 (10:23→22:29)
--- NOTE | 2016-10-10 12:03 | Gastroenterology Progress Note ---
<ANNA MOSQUEDA - Last Filed: 10/10/16 11:59> Assessment and Plan 1.Ano-rectal obstruction -suspect 2/2 rectal impaction vs chronic pseudo-obstruction -BM x 1 yesterday per nursing -tolerating po diet w/o N/V -repeat KUB revealed improvement in distention -continue daily bowel regimen -no further GI recommendations at this time, will sign off Subjective Date of service: 10/10/16 Principal diagnosis: bowel obstruction Interval history: Patient resting in bed, alert and without acute distress. Nursing reports BM x 1 yesterday and no episodes of N/V. Objective - Constitutional Vitals: Temp Pulse Resp BP Pulse Ox 97.5 F L 84 18 135/84 96 10/10/16 11:28 10/10/16 11:28 10/10/16 11:28 10/10/16 11:28 10/10/16 11:28 General appearance: no acute distress, other (non-verbal) - EENT Eyes: PERRL, EOM intact ENT: hearing intact - Respiratory Respiratory: bilateral: CTA (anterior) - Cardiovascular Rhythm: regular Heart Sounds: Present: S1 & S2 - Extremities Extremities: No edema - Gastrointestinal General gastrointestinal: Present: soft, non-distended, hypoactive bowel sounds - Integumentary Integumentary: Present: warm, dry - Neurologic Neurological: other (alert) - Labs CBC & Chem 7: 10/08/16 07:01 10/09/16 08:13 <TRICIA ANDRES - Last Filed: 10/10/16 17:00> Assessment and Plan Patient seen and examined. Agree with note above. Having bm's, noted improvement on KUB. Cont bowel regimen daily to avoid constipation. Will sign off, please call as needed. Objective - Constitutional Vitals: Temp Pulse Resp BP Pulse Ox 98.5 F 80 18 141/98 97 10/10/16 13:42 10/10/16 13:42 10/10/16 13:42 10/10/16 13:42 10/10/16 13:42 - Labs CBC & Chem 7: 10/08/16 07:01 10/09/16 08:13
--- NOTE | 2016-10-10 15:34 | Progress Note ---
Subjective Date of service: 10/10/16 Principal diagnosis: bowel obstruction Interval history: A 61-year-old male presented to the ED via EMS from his nursing home with complaint of abdomen pain and decreased urine output. Per patient's clutch mechanic, patient has had a decreased urine output of 300 mL over 24-hour. Patient is also found to be hyponatremic and possible SBO in the ER. A/P: -Acute abdomen pain - likely due to possible bowel obstruction versus gas filled colon vs renal stone, abdomen XR and renal ultrasound done in the ED, - CT abdomen showed obstruction at the anorectal junction, no renal stone was found, Dr tsai recommended enema. had BM, abdominal xr improved distension - will start on diet -Hyponatremia -cont IV fluids hydration, improved -UTI -possible acute cystitis - On Emperic Antibiotis ordered Urine cultures possible contamination Change to oral antibiotic with Ceftin Dementia with ? agitation Per nursing staff tries to hit with his hand some times -DVT prophylaxis- Heparin SQ ordered Subjective: Patient is confused Has indwelling Hurtado catheter Unable to get any history from the patient Objective - Constitutional Vitals: Vital Signs - 12hr 10/10/16 10/10/16 10/10/16 04:32 06:42 11:28 Temperature 0 F L 97.5 F L Pulse Rate 83 Pulse Rate [ 66 84 Left Radial] Pulse Rate [ Right Radial] Respiratory 18 18 Rate Blood Pressure 147/92 135/84 [Left Arm] O2 Sat by Pulse 96 Oximetry 10/10/16 13:42 Temperature 98.5 F Pulse Rate Pulse Rate [ 80 Left Radial] Pulse Rate [ 80 Right Radial] Respiratory 18 Rate Blood Pressure 141/98 [Left Arm] O2 Sat by Pulse 97 Oximetry General appearance: Present: no acute distress - EENT Eyes: PERRL, EOM intact ENT: hearing intact, clear oral mucosa - Neck Neck: supple, normal ROM, no masses or JVD - Respiratory Respiratory effort: normal Respiratory: bilateral: CTA - Cardiovascular Rhythm: regular Heart Sounds: Present: S1 & S2 Extremities: No edema - Gastrointestinal General gastrointestinal: Present: soft, non-tender - Integumentary Integumentary: clear - Neurologic Neurologic: moves all extremities, other (limited neuro exam) - Labs CBC & Chem 7: 10/08/16 07:01 10/09/16 08:13
[2016-10-10] MEDS: CEFTIN PO SCH (22:28)
[2016-10-11] MEDS: ATIVAN IV PRN ×2 (05:30→21:58)
[2016-10-11] MEDS: D5NS 1,000 ML IV SCH ×2 (10:36→21:56)
[2016-10-11] MEDS: THERAGRAN-M Tab PO SCH (10:38)
[2016-10-11] MEDS: CEFTIN PO SCH ×2 (10:38→21:58)
[2016-10-11] MEDS: TRILEPTAL PO SCH ×2 (10:38→21:58)
[2016-10-11] MEDS: VITAMIN D3 PO SCH (10:38)
[2016-10-11] MEDS: CEPHULAC PO SCH (10:38)
[2016-10-11] MEDS: OYSCO D 500 MG-200 UNIT PO SCH (10:38)
[2016-10-11] MEDS: MIRALAX 3350 PO SCH (10:38)
[2016-10-11] MEDS: ZESTRIL PO SCH (10:39)
[2016-10-11] MEDS: PROTONIX PO SCH (10:39)
[2016-10-11] MEDS: FLOMAX PO SCH ×2 (10:39→21:58)
[2016-10-11] MEDS: HEPARIN SUB-Q SCH ×2 (10:40→21:58)
--- NOTE | 2016-10-11 16:08 | Progress Note ---
Assessment and Plan A 61-year-old male presented to the ED via EMS from his longterm with complaint of abdomen pain and decreased urine output. Per patient's blue split trimmer, patient has had a decreased urine output of 300 mL over 24-hour. Patient is also found to be hyponatremic and possible SBO in the ER. A/P: -Acute abdomen pain - likely due to possible bowel obstruction versus gas filled colon vs renal stone, abdomen XR and renal ultrasound done in the ED, - CT abdomen showed obstruction at the anorectal junction, no renal stone was found, Dr tsai recommended enema. had BM, abdominal xr improved distension - will start on diet -Hyponatremia -cont IV fluids hydration, improved -UTI -possible acute cystitis - On Emperic Antibiotis ordered Urine cultures possible contamination Change to oral antibiotic with Ceftin Dementia with ? agitation Per nursing staff tries to hit with his hand some times -DVT prophylaxis- Heparin SQ ordered Subjective: Patient is confused Has indwelling Hurtado catheter Unable to get any history from the patient Subjective Date of service: 10/11/16 Principal diagnosis: bowel obstruction Objective - Constitutional Vitals: Vital Signs - 12hr 10/11/16 04:53 Pulse Rate 76 - Labs CBC & Chem 7: 10/08/16 07:01 10/09/16 08:13
[2016-10-12] MEDS: TRILEPTAL PO SCH ×2 (09:01→21:39)
[2016-10-12] MEDS: MIRALAX 3350 PO SCH (09:01)
[2016-10-12] MEDS: CEPHULAC PO SCH (09:01)
[2016-10-12] MEDS: PROTONIX PO SCH (09:02)
[2016-10-12] MEDS: VITAMIN D3 PO SCH (09:03)
[2016-10-12] MEDS: OYSCO D 500 MG-200 UNIT PO SCH (09:03)
[2016-10-12] MEDS: THERAGRAN-M Tab PO SCH (09:04)
[2016-10-12] MEDS: FLOMAX PO SCH ×2 (09:04→21:39)
[2016-10-12] MEDS: ZESTRIL PO SCH (09:04)
[2016-10-12] MEDS: CEFTIN PO SCH ×2 (09:04→21:39)
[2016-10-12] MEDS: HEPARIN SUB-Q SCH ×2 (09:41→21:40)
--- NOTE | 2016-10-12 15:53 | Progress Note ---
Assessment and Plan A 61-year-old male presented to the ED via EMS from his half-way with complaint of abdomen pain and decreased urine output. Per patient's contact lens manufacturer, patient has had a decreased urine output of 300 mL over 24-hour. Patient is also found to be hyponatremic and possible SBO in the ER. A/P: -Acute abdomen pain - likely due to possible bowel obstruction versus gas filled colon vs renal stone, abdomen XR and renal ultrasound done in the ED, - CT abdomen showed obstruction at the anorectal junction, no renal stone was found, Dr tsai recommended enema. had BM, abdominal xr improved distension - will start on diet -Hyponatremia -cont IV fluids hydration, improved -UTI -possible acute cystitis - On Emperic Antibiotis ordered Urine cultures possible contamination Change to oral antibiotic with Ceftin Dementia with ? agitation Per nursing staff tries to hit with his hand some times -DVT prophylaxis- Heparin SQ ordered Subjective: Patient is confused Has indwelling Hurtado catheter Unable to get any history from the patient Subjective Date of service: 10/12/16 Principal diagnosis: bowel obstruction Interval history: Pt seen and examined non verbal but does not have any complaint Objective - Exam Narrative Exam: General appearance: Present: no acute distress, well-nourished - EENT Eyes: Present: PERRL ENT: hearing intact, clear oral mucosa - Respiratory Respiratory effort: normal Respiratory: bilateral: CTA - Cardiovascular Rhythm: regular Heart Sounds: Present: S1 & S2. Absent: rub, click Peripheral Pulses: within normal limits - Abdominal General gastrointestinal: Present: soft, non-tender, non-distended, normal bowel sounds - Integumentary Integumentary: Present: clear, warm, dry - Musculoskeletal Musculoskeletal: gait normal, strength equal bilaterally - Neurologic Neurologic: moves all extremities - Constitutional Vitals: Vital Signs - 12hr 10/12/16 10/12/16 10/12/16 05:15 07:35 12:45 Temperature 98.2 F 97.6 F 98.0 F Pulse Rate Pulse Rate [ 78 67 81 Left Radial] Pulse Rate [ 78 67 81 Right Radial] Respiratory 18 18 18 Rate Blood Pressure 128/68 162/88 150/80 [Left Arm] O2 Sat by Pulse 94 96 100 Oximetry 10/12/16 14:26 Temperature Pulse Rate 66 Pulse Rate [ Left Radial] Pulse Rate [ Right Radial] Respiratory Rate Blood Pressure [Left Arm] O2 Sat by Pulse Oximetry - Labs CBC & Chem 7: 10/08/16 07:01 10/09/16 08:13
[2016-10-12] MEDS: D5NS 1,000 ML IV SCH (19:33)
[2016-10-13] MEDS: CEPHULAC PO SCH (09:23)
[2016-10-13] MEDS: MIRALAX 3350 PO SCH (09:23)
[2016-10-13] MEDS: HEPARIN SUB-Q SCH ×2 (09:23→22:01)
[2016-10-13] MEDS: VITAMIN D3 PO SCH (09:29)
[2016-10-13] MEDS: THERAGRAN-M Tab PO SCH (09:29)
[2016-10-13] MEDS: CEFTIN PO SCH ×2 (09:29→22:48)
[2016-10-13] MEDS: OYSCO D 500 MG-200 UNIT PO SCH (09:30)
[2016-10-13] MEDS: FLOMAX PO SCH ×2 (09:30→22:01)
[2016-10-13] MEDS: TRILEPTAL PO SCH ×2 (09:30→22:01)
[2016-10-13] MEDS: PROTONIX PO SCH (09:30)
[2016-10-13] MEDS: ZESTRIL PO SCH (09:30)
--- NOTE | 2016-10-13 14:46 | Progress Note ---
Assessment and Plan A 61-year-old male presented to the ED via EMS from his half-way with complaint of abdomen pain and decreased urine output. Per patient's farm or ranch animal caretaker, patient has had a decreased urine output of 300 mL over 24-hour. Patient is also found to be hyponatremic and possible SBO in the ER. A/P: -Acute abdomen pain - likely due to possible bowel obstruction versus gas filled colon vs renal stone, abdomen XR and renal ultrasound done in the ED, - CT abdomen showed obstruction at the anorectal junction, no renal stone was found, Dr tsai recommended enema. had BM, abdominal xr improved distension - will start on diet -Hyponatremia -cont IV fluids hydration, improved -UTI -possible acute cystitis - On Emperic Antibiotis ordered Urine cultures possible contamination Change to oral antibiotic with Ceftin Dementia with ? agitation Per nursing staff tries to hit with his hand some times -DVT prophylaxis- Heparin SQ ordered Subjective: Patient is confused Has indwelling Hurtado catheter Unable to get any history from the patient Subjective Date of service: 10/13/16 Principal diagnosis: bowel obstruction Objective - Exam Narrative Exam: General appearance: Present: no acute distress, well-nourished - EENT Eyes: Present: PERRL ENT: hearing intact, clear oral mucosa - Respiratory Respiratory effort: normal Respiratory: bilateral: CTA - Cardiovascular Rhythm: regular Heart Sounds: Present: S1 & S2. Absent: rub, click Peripheral Pulses: within normal limits - Abdominal General gastrointestinal: Present: soft, non-tender, non-distended, normal bowel sounds - Integumentary Integumentary: Present: clear, warm, dry - Musculoskeletal Musculoskeletal: gait normal, strength equal bilaterally - Neurologic Neurologic: moves all extremities - Constitutional Vitals: Vital Signs - 12hr 10/13/16 04:00 Temperature 97.6 F Pulse Rate [ 75 Left Radial] Pulse Rate [ 75 Right Radial] Respiratory 16 Rate Blood Pressure 132/78 [Left Arm] - Labs CBC & Chem 7: 10/08/16 07:01 10/09/16 08:13
[2016-10-13] MEDS: D5NS 1,000 ML IV SCH (16:49)
[2016-10-13] MEDS: ATIVAN IV PRN (22:01)
[2016-10-14] MEDS: D5NS 1,000 ML IV SCH ×2 (07:14→17:39)
[2016-10-14] MEDS: CEPHULAC PO SCH ×3 (09:05→22:14)
[2016-10-14] MEDS: MIRALAX 3350 PO SCH ×2 (09:05→22:15)
[2016-10-14] MEDS: VITAMIN D3 PO SCH (10:12)
[2016-10-14] MEDS: ZESTRIL PO SCH (10:13)
[2016-10-14] MEDS: THERAGRAN-M Tab PO SCH (10:13)
[2016-10-14] MEDS: TRILEPTAL PO SCH ×2 (10:13→22:19)
[2016-10-14] MEDS: PROTONIX PO SCH (10:14)
[2016-10-14] MEDS: HEPARIN SUB-Q SCH ×2 (10:14→22:16)
[2016-10-14] MEDS: OYSCO D 500 MG-200 UNIT PO SCH (10:14)
[2016-10-14] MEDS: FLOMAX PO SCH ×2 (10:14→22:16)
--- NOTE | 2016-10-14 10:50 | Progress Note ---
Assessment and Plan Assessment and plan: -Abdomen pain - likely due to ileus and constipation, - CT abdomen showed obstruction at the anorectal junction, no renal stone was found, Dr tsai recommended enema. had BM, abdominal xr improved distension - Continue on diet -Repeat KUB today shows ileus, constipation. Will increase dose of Miralax and Lactulose. Add Dulcolax supp -Hyponatremia. now resolved -cont IV fluids hydration, improved -UTI - acute cystitis - On Antibiotic Dementia with agitation Patient tries to hit with his hand some times -DVT prophylaxis- Heparin SQ ordered History Interval history: constipation, confused Hospitalist Physical - Physical exam Narrative exam: Gen Appearance: No acute distress, HEENT: normocephalic, atraumatic Neck: supple, no JVD Lungs: clear to auscultation bilaterally, no crackles or wheezes Heart: S1 and S2 regular, no murmurs or gallop Abdomen: Soft, non-tender, non-distended, normal bowel sounds Extremity:No edema, clubbing or cyanosis Neuro : Awake, alert, Psych :calm - Constitutional Vitals: Temp Pulse Resp BP Pulse Ox 98.6 F 80 18 136/91 93 10/14/16 10:44 10/14/16 10:44 10/14/16 10:44 10/14/16 10:44 10/14/16 10:44 General appearance: Present: no acute distress Results - Labs CBC & Chem 7: 10/08/16 07:01 10/09/16 08:13 Labs: Laboratory Last Values WBC 5.4 K/mm3 (4.5-11.0) 10/08/16 07:01 RBC 4.17 M/mm3 (3.65-5.03) 10/08/16 07:01 Hgb 13.2 gm/dl (11.8-15.2) 10/08/16 07:01 Hct 39.1 % (35.5-45.6) 10/08/16 07:01 MCV 94 fl (84-94) 10/08/16 07:01 MCH 32 pg (28-32) 10/08/16 07:01 MCHC 34 % (32-34) 10/08/16 07:01 RDW 13.6 % (13.2-15.2) 10/08/16 07:01 Plt Count 307 K/mm3 (140-440) 10/08/16 07:01 Lymph % (Auto) 15.3 % (13.4-35.0) 10/08/16 07:01 [place] % (Auto) 12.6 % (0.0-7.3) H 10/08/16 07:01 Eos % (Auto) 1.0 % (0.0-4.3) 10/08/16 07:01 Baso % (Auto) 0.7 % (0.0-1.8) 10/08/16 07:01 Lymph # 0.8 K/mm3 (1.2-5.4) L 10/08/16 07:01 [place] # 0.7 K/mm3 (0.0-0.8) 10/08/16 07:01 Eos # 0.1 K/mm3 (0.0-0.4) 10/08/16 07:01 Baso # 0.0 K/mm3 (0.0-0.1) 10/08/16 07:01 Add Manual Diff Complete 10/06/16 20:58 Total Counted 100 10/06/16 20:58 Seg Neutrophils % 70.4 % (40.0-70.0) H 10/08/16 07:01 Seg Neuts % (Manual) 57.0 % (40.0-70.0) 10/06/16 20:58 Band Neutrophils % 23.0 % 10/06/16 20:58 Lymphocytes % (Manual) 12.0 % (13.4-35.0) L 10/06/16 20:58 Reactive Lymphs % (Man) 0 % 10/06/16 20:58 Monocytes % (Manual) 7.0 % (0.0-7.3) 10/06/16 20:58 Eosinophils % (Manual) 1.0 % (0.0-4.3) 10/06/16 20:58 Basophils % (Manual) 0 % (0.0-1.8) 10/06/16 20:58 Metamyelocytes % 0 % 10/06/16 20:58 Myelocytes % 0 % 10/06/16 20:58 Promyelocytes % 0 % 10/06/16 20:58 Blast Cells % 0 % 10/06/16 20:58 Nucleated RBC % Not Reportable 10/06/16 20:58 Seg Neutrophils # 3.8 K/mm3 (1.8-7.7) 10/08/16 07:01 Seg Neutrophils # Man 3.2 K/mm3 (1.8-7.7) 10/06/16 20:58 Band Neutrophils # 1.3 K/mm3 10/06/16 20:58 Lymphocytes # (Manual) 0.7 K/mm3 (1.2-5.4) L 10/06/16 20:58 Abs React Lymphs (Man) 0.0 K/mm3 10/06/16 20:58 Monocytes # (Manual) 0.4 K/mm3 (0.0-0.8) 10/06/16 20:58 Eosinophils # (Manual) 0.1 K/mm3 (0.0-0.4) 10/06/16 20:58 Basophils # (Manual) 0.0 K/mm3 (0.0-0.1) 10/06/16 20:58 Metamyelocytes # 0.0 K/mm3 10/06/16 20:58 Myelocytes # 0.0 K/mm3 10/06/16 20:58 Promyelocytes # 0.0 K/mm3 10/06/16 20:58 Blast Cells # 0.0 K/mm3 10/06/16 20:58 WBC Morphology Not Reportable 10/06/16 20:58 Hypersegmented Neuts Not Reportable 10/06/16 20:58 Hyposegmented Neuts Not Reportable 10/06/16 20:58 Hypogranular Neuts Not Reportable 10/06/16 20:58 Smudge Cells Not Reportable 10/06/16 20:58 Toxic Granulation Not Reportable 10/06/16 20:58 Toxic Vacuolation Not Reportable 10/06/16 20:58 Dohle Bodies Not Reportable 10/06/16 20:58 Pelger-Huet Anomaly Not Reportable 10/06/16 20:58 Lina Rods Not Reportable 10/06/16 20:58 Platelet Estimate Consistent w auto 10/06/16 20:58 Clumped Platelets Not Reportable 10/06/16 20:58 Plt Clumps, EDTA Not Reportable 10/06/16 20:58 Large Platelets Not Reportable 10/06/16 20:58 Giant Platelets Not Reportable 10/06/16 20:58 Platelet Satelliting Not Reportable 10/06/16 20:58 Plt Morphology Comment Not Reportable 10/06/16 20:58 RBC Morphology Not Reportable 10/06/16 20:58 Dimorphic RBCs Not Reportable 10/06/16 20:58 Polychromasia Not Reportable 10/06/16 20:58 Hypochromasia Not Reportable 10/06/16 20:58 Poikilocytosis Not Reportable 10/06/16 20:58 Anisocytosis 1+ 10/06/16 20:58 Microcytosis Not Reportable 10/06/16 20:58 Macrocytosis Not Reportable 10/06/16 20:58 Spherocytes Not Reportable 10/06/16 20:58 Pappenheimer Bodies Not Reportable 10/06/16 20:58 Sickle Cells Not Reportable 10/06/16 20:58 Target Cells Not Reportable 10/06/16 20:58 Tear Drop Cells Not Reportable 10/06/16 20:58 Ovalocytes Not Reportable 10/06/16 20:58 Helmet Cells Not Reportable 10/06/16 20:58 [place] Bodies Not Reportable 10/06/16 20:58 [place] Rings Not Reportable 10/06/16 20:58 [place] Cells Not Reportable 10/06/16 20:58 Bite Cells Not Reportable 10/06/16 20:58 Crenated Cell Not Reportable 10/06/16 20:58 Elliptocytes Not Reportable 10/06/16 20:58 Acanthocytes (Spur) Not Reportable 10/06/16 20:58 Rouleaux Not Reportable 10/06/16 20:58 Hemoglobin C Crystals Not Reportable 10/06/16 20:58 Schistocytes Not Reportable 10/06/16 20:58 Malaria parasites Not Reportable 10/06/16 20:58 Reyes Bodies Not Reportable 10/06/16 20:58 Hem Pathologist Commnt No 10/06/16 20:58 Sodium 139 mmol/L (137-145) 10/09/16 08:13 Potassium 3.7 mmol/L (3.6-5.0) 10/09/16 08:13 Chloride 104.3 mmol/L (98-107) 10/09/16 08:13 Carbon Dioxide 20 mmol/L (22-30) L 10/09/16 08:13 Anion Gap 18 mmol/L 10/09/16 08:13 BUN 6 mg/dL (9-20) L 10/09/16 08:13 Creatinine 0.6 mg/dL (0.8-1.5) L 10/09/16 08:13 Estimated GFR > 60 ml/min 10/09/16 08:13 BUN/Creatinine Ratio 10.00 % 10/09/16 08:13 Glucose 103 mg/dL (75-100) H 10/09/16 08:13 Lactic Acid 1.20 mmol/L (0.7-2.0) 10/07/16 08:15 Calcium 8.7 mg/dL (8.4-10.2) 10/09/16 08:13 Total Bilirubin 0.40 mg/dL (0.1-1.2) 10/07/16 20:34 AST 39 units/L (5-40) 10/07/16 20:34 ALT 24 units/L (7-56) 10/07/16 20:34 Alkaline Phosphatase 67 units/L (35-129) 10/07/16 20:34 Total Protein 7.1 g/dL (6.3-8.2) 10/07/16 20:34 Albumin 3.7 g/dL (3.9-5) L 10/07/16 20:34 Albumin/Globulin Ratio 1.1 % 10/07/16 20:34 Lipase 22 units/L (13-60) 10/06/16 20:58 Urine Color Yellow (Yellow) 10/06/16 20:50 Urine Turbidity Slightly-cloudy (Clear) 10/06/16 20:50 Urine pH 7.0 (5.0-7.0) 10/06/16 20:50 Ur Specific [place] 1.011 (1.003-1.030) 10/06/16 20:50 Urine Protein 100 mg/dl mg/dL (Negative) 10/06/16 20:50 Urine Glucose (UA) Neg mg/dL (Negative) 10/06/16 20:50 Urine Ketones Neg mg/dL (Negative) 10/06/16 20:50 Urine Blood Mod (Negative) 10/06/16 20:50 Urine Nitrite Pos (Negative) 10/06/16 20:50 Urine Bilirubin Neg (Negative) 10/06/16 20:50 Urine Urobilinogen < 2.0 mg/dL (<2.0) 10/06/16 20:50 Ur Leukocyte Esterase Lg (Negative) 10/06/16 20:50 Urine WBC (Auto) 10.0 /HPF (0.0-6.0) H 10/06/16 20:50 Urine RBC (Auto) 32.0 /HPF (0.0-6.0) 10/06/16 20:50 U Epithel Cells (Auto) < 1.0 /HPF (0-13.0) 10/06/16 20:50 Urine Bacteria (Auto) 2+ /HPF (Negative) 10/06/16 20:50 Urine Mucus Few /HPF 10/06/16 20:50 Ur Yeast w Hyphae 1+ /HPF 10/06/16 20:50
[2016-10-14] MEDS: CEFTIN PO SCH ×2 (11:00→22:16)
--- NOTE | 2016-10-14 16:29 | XRay Report ---
FINAL REPORT PROCEDURE: XR ABDOMEN 1V AP TECHNIQUE: AP view of the abdomen is obtained on 3 images. HISTORY: constipation COMPARISON: Abdomen CT dated September 21, 2016 FINDINGS: Prominent gaseous dilation of the sigmoid colon is seen. It measures 12 cm in diameter which is improved since prior study. A suprapubic catheter is seen. Mild retained fecal material seen in the rectum with moderate retained fecal material in the ascending colon. Increased small bowel air is seen diffusely and findings are probably due to ileus. One image suggests a slightly beaked appearance of the distal sigmoid colon as can be seen with volvulus. However, this is probably artifactual appearance given findings on prior CT study. IMPRESSION: Likely moderate to prominent ileus is seen, with mild constipation in the rectum and moderate constipation in the ascending colon.
[2016-10-15 06:22] LABS: Anion Gap 18 mmol/L; Blood Urea Nitrogen 6 mg/dL (9-20); Calcium 8.2 mg/dL (8.4-10.2); Carbon Dioxide 24 mmol/L (22-30); Chloride 103.2 mmol/L (98-107); Glucose 95 mg/dL (75-100); Potassium 3.8 mmol/L (3.6-5.0); Sodium 141 mmol/L (137-145)
[2016-10-15] MEDS ORDERED: DULCOLAX PR SCH (10:00)
[2016-10-15] MEDS: TRILEPTAL PO SCH ×2 (13:54→23:00)
[2016-10-15] MEDS: THERAGRAN-M Tab PO SCH (13:55)
[2016-10-15] MEDS: VITAMIN D3 PO SCH (13:55)
[2016-10-15] MEDS: FLOMAX PO SCH ×2 (13:56→23:01)
[2016-10-15] MEDS: OYSCO D 500 MG-200 UNIT PO SCH (13:56)
[2016-10-15] MEDS: MIRALAX 3350 PO SCH ×2 (13:56→22:58)
[2016-10-15] MEDS: PROTONIX PO SCH (13:57)
[2016-10-15] MEDS: ZESTRIL PO SCH (13:57)
[2016-10-15] MEDS: HEPARIN SUB-Q SCH ×2 (13:58→22:59)
[2016-10-15] MEDS: CEPHULAC PO SCH ×2 (13:58→22:57)
[2016-10-15] MEDS: CEFTIN PO SCH ×2 (14:05→22:59)
--- NOTE | 2016-10-15 14:54 | Progress Note ---
Assessment and Plan Assessment and plan: -Abdomen pain - likely due to ileus and constipation, - Continue on diet -Repeat KUB yesterday shows ileus, constipation. Increased dose of Miralax and Lactulose and added Dulcolax supp. May repeat KUB tomorrow if no bowel movement. -Hyponatremia. now resolved -cont IV fluids hydration, improved -UTI - acute cystitis - On Antibiotic Dementia with agitation Patient tries to hit with his hand some times -DVT prophylaxis- Heparin SQ ordered History Interval history: still constipation, confused Hospitalist Physical - Physical exam Narrative exam: Gen Appearance: No acute distress, HEENT: normocephalic, atraumatic Neck: supple, no JVD Lungs: clear to auscultation bilaterally, no crackles or wheezes Heart: S1 and S2 regular, no murmurs or gallop Abdomen: Soft, non-tender, non-distended, normal bowel sounds Extremity:No edema, clubbing or cyanosis Neuro : Awake, alert,confused Psych :calm - Constitutional Vitals: Temp Pulse Resp BP Pulse Ox 97.6 F 81 18 152/96 95 10/15/16 13:24 10/15/16 13:24 10/15/16 13:24 10/15/16 13:24 10/15/16 13:24 General appearance: Present: no acute distress Results - Labs CBC & Chem 7: 10/08/16 07:01 10/15/16 05:28 Labs: Laboratory Last Values WBC 5.4 K/mm3 (4.5-11.0) 10/08/16 07:01 RBC 4.17 M/mm3 (3.65-5.03) 10/08/16 07:01 Hgb 13.2 gm/dl (11.8-15.2) 10/08/16 07:01 Hct 39.1 % (35.5-45.6) 10/08/16 07:01 MCV 94 fl (84-94) 10/08/16 07:01 MCH 32 pg (28-32) 10/08/16 07:01 MCHC 34 % (32-34) 10/08/16 07:01 RDW 13.6 % (13.2-15.2) 10/08/16 07:01 Plt Count 307 K/mm3 (140-440) 10/08/16 07:01 Lymph % (Auto) 15.3 % (13.4-35.0) 10/08/16 07:01 [place] % (Auto) 12.6 % (0.0-7.3) H 10/08/16 07:01 Eos % (Auto) 1.0 % (0.0-4.3) 10/08/16 07:01 Baso % (Auto) 0.7 % (0.0-1.8) 10/08/16 07:01 Lymph # 0.8 K/mm3 (1.2-5.4) L 10/08/16 07:01 [place] # 0.7 K/mm3 (0.0-0.8) 10/08/16 07:01 Eos # 0.1 K/mm3 (0.0-0.4) 10/08/16 07:01 Baso # 0.0 K/mm3 (0.0-0.1) 10/08/16 07:01 Add Manual Diff Complete 10/06/16 20:58 Total Counted 100 10/06/16 20:58 Seg Neutrophils % 70.4 % (40.0-70.0) H 10/08/16 07:01 Seg Neuts % (Manual) 57.0 % (40.0-70.0) 10/06/16 20:58 Band Neutrophils % 23.0 % 10/06/16 20:58 Lymphocytes % (Manual) 12.0 % (13.4-35.0) L 10/06/16 20:58 Reactive Lymphs % (Man) 0 % 10/06/16 20:58 Monocytes % (Manual) 7.0 % (0.0-7.3) 10/06/16 20:58 Eosinophils % (Manual) 1.0 % (0.0-4.3) 10/06/16 20:58 Basophils % (Manual) 0 % (0.0-1.8) 10/06/16 20:58 Metamyelocytes % 0 % 10/06/16 20:58 Myelocytes % 0 % 10/06/16 20:58 Promyelocytes % 0 % 10/06/16 20:58 Blast Cells % 0 % 10/06/16 20:58 Nucleated RBC % Not Reportable 10/06/16 20:58 Seg Neutrophils # 3.8 K/mm3 (1.8-7.7) 10/08/16 07:01 Seg Neutrophils # Man 3.2 K/mm3 (1.8-7.7) 10/06/16 20:58 Band Neutrophils # 1.3 K/mm3 10/06/16 20:58 Lymphocytes # (Manual) 0.7 K/mm3 (1.2-5.4) L 10/06/16 20:58 Abs React Lymphs (Man) 0.0 K/mm3 10/06/16 20:58 Monocytes # (Manual) 0.4 K/mm3 (0.0-0.8) 10/06/16 20:58 Eosinophils # (Manual) 0.1 K/mm3 (0.0-0.4) 10/06/16 20:58 Basophils # (Manual) 0.0 K/mm3 (0.0-0.1) 10/06/16 20:58 Metamyelocytes # 0.0 K/mm3 10/06/16 20:58 Myelocytes # 0.0 K/mm3 10/06/16 20:58 Promyelocytes # 0.0 K/mm3 10/06/16 20:58 Blast Cells # 0.0 K/mm3 10/06/16 20:58 WBC Morphology Not Reportable 10/06/16 20:58 Hypersegmented Neuts Not Reportable 10/06/16 20:58 Hyposegmented Neuts Not Reportable 10/06/16 20:58 Hypogranular Neuts Not Reportable 10/06/16 20:58 Smudge Cells Not Reportable 10/06/16 20:58 Toxic Granulation Not Reportable 10/06/16 20:58 Toxic Vacuolation Not Reportable 10/06/16 20:58 Dohle Bodies Not Reportable 10/06/16 20:58 Pelger-Huet Anomaly Not Reportable 10/06/16 20:58 Lina Rods Not Reportable 10/06/16 20:58 Platelet Estimate Consistent w auto 10/06/16 20:58 Clumped Platelets Not Reportable 10/06/16 20:58 Plt Clumps, EDTA Not Reportable 10/06/16 20:58 Large Platelets Not Reportable 10/06/16 20:58 Giant Platelets Not Reportable 10/06/16 20:58 Platelet Satelliting Not Reportable 10/06/16 20:58 Plt Morphology Comment Not Reportable 10/06/16 20:58 RBC Morphology Not Reportable 10/06/16 20:58 Dimorphic RBCs Not Reportable 10/06/16 20:58 Polychromasia Not Reportable 10/06/16 20:58 Hypochromasia Not Reportable 10/06/16 20:58 Poikilocytosis Not Reportable 10/06/16 20:58 Anisocytosis 1+ 10/06/16 20:58 Microcytosis Not Reportable 10/06/16 20:58 Macrocytosis Not Reportable 10/06/16 20:58 Spherocytes Not Reportable 10/06/16 20:58 Pappenheimer Bodies Not Reportable 10/06/16 20:58 Sickle Cells Not Reportable 10/06/16 20:58 Target Cells Not Reportable 10/06/16 20:58 Tear Drop Cells Not Reportable 10/06/16 20:58 Ovalocytes Not Reportable 10/06/16 20:58 Helmet Cells Not Reportable 10/06/16 20:58 [place] Bodies Not Reportable 10/06/16 20:58 [place] Rings Not Reportable 10/06/16 20:58 [place] Cells Not Reportable 10/06/16 20:58 Bite Cells Not Reportable 10/06/16 20:58 Crenated Cell Not Reportable 10/06/16 20:58 Elliptocytes Not Reportable 10/06/16 20:58 Acanthocytes (Spur) Not Reportable 10/06/16 20:58 Rouleaux Not Reportable 10/06/16 20:58 Hemoglobin C Crystals Not Reportable 10/06/16 20:58 Schistocytes Not Reportable 10/06/16 20:58 Malaria parasites Not Reportable 10/06/16 20:58 Reyes Bodies Not Reportable 10/06/16 20:58 Hem Pathologist Commnt No 10/06/16 20:58 Sodium 141 mmol/L (137-145) 10/15/16 05:28 Potassium 3.8 mmol/L (3.6-5.0) 10/15/16 05:28 Chloride 103.2 mmol/L (98-107) 10/15/16 05:28 Carbon Dioxide 24 mmol/L (22-30) 10/15/16 05:28 Anion Gap 18 mmol/L 10/15/16 05:28 BUN 6 mg/dL (9-20) L 10/15/16 05:28 Creatinine 0.5 mg/dL (0.8-1.5) L 10/15/16 05:28 Estimated GFR > 60 ml/min 10/15/16 05:28 BUN/Creatinine Ratio 12.00 % 10/15/16 05:28 Glucose 95 mg/dL (75-100) 10/15/16 05:28 Lactic Acid 1.20 mmol/L (0.7-2.0) 10/07/16 08:15 Calcium 8.2 mg/dL (8.4-10.2) L 10/15/16 05:28 Phosphorus 4.30 mg/dL (2.5-4.5) 10/15/16 05:28 Magnesium 2.20 mg/dL (1.7-2.3) 10/15/16 05:28 Total Bilirubin 0.40 mg/dL (0.1-1.2) 10/07/16 20:34 AST 39 units/L (5-40) 10/07/16 20:34 ALT 24 units/L (7-56) 10/07/16 20:34 Alkaline Phosphatase 67 units/L (35-129) 10/07/16 20:34 Total Protein 7.1 g/dL (6.3-8.2) 10/07/16 20:34 Albumin 3.7 g/dL (3.9-5) L 10/07/16 20:34 Albumin/Globulin Ratio 1.1 % 10/07/16 20:34 Lipase 22 units/L (13-60) 10/06/16 20:58 Urine Color Yellow (Yellow) 10/06/16 20:50 Urine Turbidity Slightly-cloudy (Clear) 10/06/16 20:50 Urine pH 7.0 (5.0-7.0) 10/06/16 20:50 Ur Specific [place] 1.011 (1.003-1.030) 10/06/16 20:50 Urine Protein 100 mg/dl mg/dL (Negative) 10/06/16 20:50 Urine Glucose (UA) Neg mg/dL (Negative) 10/06/16 20:50 Urine Ketones Neg mg/dL (Negative) 10/06/16 20:50 Urine Blood Mod (Negative) 10/06/16 20:50 Urine Nitrite Pos (Negative) 10/06/16 20:50 Urine Bilirubin Neg (Negative) 10/06/16 20:50 Urine Urobilinogen < 2.0 mg/dL (<2.0) 10/06/16 20:50 Ur Leukocyte Esterase Lg (Negative) 10/06/16 20:50 Urine WBC (Auto) 10.0 /HPF (0.0-6.0) H 10/06/16 20:50 Urine RBC (Auto) 32.0 /HPF (0.0-6.0) 10/06/16 20:50 U Epithel Cells (Auto) < 1.0 /HPF (0-13.0) 10/06/16 20:50 Urine Bacteria (Auto) 2+ /HPF (Negative) 10/06/16 20:50 Urine Mucus Few /HPF 10/06/16 20:50 Ur Yeast w Hyphae 1+ /HPF 10/06/16 20:50
--- NOTE | 2016-10-16 10:51 | Progress Note ---
Assessment and Plan Assessment and plan: -Abdomen pain - likely due to ileus and constipation, - Continue on diet - had bowel movement today . Will repeat KUB tomorrow. Increased dose of Miralax and Lactulose and added Dulcolax supp. -Hyponatremia. now resolved -cont IV fluids hydration, improved -UTI - acute cystitis - On Antibiotic Dementia with agitation Patient tries to hit with his hand some times -DVT prophylaxis- Heparin SQ ordered Awaiting placement. Discussed with case management. History Interval history: Had bowel movement today, Still confused Hospitalist Physical - Physical exam Narrative exam: Gen Appearance: No acute distress, HEENT: normocephalic, atraumatic Neck: supple, no JVD Lungs: clear to auscultation bilaterally, no crackles or wheezes Heart: S1 and S2 regular, no murmurs or gallop Abdomen: Soft, non-tender, non-distended, normal bowel sounds Extremity:No edema, clubbing or cyanosis Neuro : Awake, alert, confused Psych :calm - Constitutional Vitals: Temp Pulse Resp BP Pulse Ox 97.6 F 84 18 156/84 97 10/16/16 10:05 10/16/16 10:05 10/16/16 10:05 10/16/16 10:05 10/16/16 10:05 General appearance: Present: no acute distress Results - Labs CBC & Chem 7: 10/08/16 07:01 10/15/16 05:28 Labs: Laboratory Last Values WBC 5.4 K/mm3 (4.5-11.0) 10/08/16 07:01 RBC 4.17 M/mm3 (3.65-5.03) 10/08/16 07:01 Hgb 13.2 gm/dl (11.8-15.2) 10/08/16 07:01 Hct 39.1 % (35.5-45.6) 10/08/16 07:01 MCV 94 fl (84-94) 10/08/16 07:01 MCH 32 pg (28-32) 10/08/16 07:01 MCHC 34 % (32-34) 10/08/16 07:01 RDW 13.6 % (13.2-15.2) 10/08/16 07:01 Plt Count 307 K/mm3 (140-440) 10/08/16 07:01 Lymph % (Auto) 15.3 % (13.4-35.0) 10/08/16 07:01 [place] % (Auto) 12.6 % (0.0-7.3) H 10/08/16 07:01 Eos % (Auto) 1.0 % (0.0-4.3) 10/08/16 07:01 Baso % (Auto) 0.7 % (0.0-1.8) 10/08/16 07:01 Lymph # 0.8 K/mm3 (1.2-5.4) L 10/08/16 07:01 [place] # 0.7 K/mm3 (0.0-0.8) 10/08/16 07:01 Eos # 0.1 K/mm3 (0.0-0.4) 10/08/16 07:01 Baso # 0.0 K/mm3 (0.0-0.1) 10/08/16 07:01 Add Manual Diff Complete 10/06/16 20:58 Total Counted 100 10/06/16 20:58 Seg Neutrophils % 70.4 % (40.0-70.0) H 10/08/16 07:01 Seg Neuts % (Manual) 57.0 % (40.0-70.0) 10/06/16 20:58 Band Neutrophils % 23.0 % 10/06/16 20:58 Lymphocytes % (Manual) 12.0 % (13.4-35.0) L 10/06/16 20:58 Reactive Lymphs % (Man) 0 % 10/06/16 20:58 Monocytes % (Manual) 7.0 % (0.0-7.3) 10/06/16 20:58 Eosinophils % (Manual) 1.0 % (0.0-4.3) 10/06/16 20:58 Basophils % (Manual) 0 % (0.0-1.8) 10/06/16 20:58 Metamyelocytes % 0 % 10/06/16 20:58 Myelocytes % 0 % 10/06/16 20:58 Promyelocytes % 0 % 10/06/16 20:58 Blast Cells % 0 % 10/06/16 20:58 Nucleated RBC % Not Reportable 10/06/16 20:58 Seg Neutrophils # 3.8 K/mm3 (1.8-7.7) 10/08/16 07:01 Seg Neutrophils # Man 3.2 K/mm3 (1.8-7.7) 10/06/16 20:58 Band Neutrophils # 1.3 K/mm3 10/06/16 20:58 Lymphocytes # (Manual) 0.7 K/mm3 (1.2-5.4) L 10/06/16 20:58 Abs React Lymphs (Man) 0.0 K/mm3 10/06/16 20:58 Monocytes # (Manual) 0.4 K/mm3 (0.0-0.8) 10/06/16 20:58 Eosinophils # (Manual) 0.1 K/mm3 (0.0-0.4) 10/06/16 20:58 Basophils # (Manual) 0.0 K/mm3 (0.0-0.1) 10/06/16 20:58 Metamyelocytes # 0.0 K/mm3 10/06/16 20:58 Myelocytes # 0.0 K/mm3 10/06/16 20:58 Promyelocytes # 0.0 K/mm3 10/06/16 20:58 Blast Cells # 0.0 K/mm3 10/06/16 20:58 WBC Morphology Not Reportable 10/06/16 20:58 Hypersegmented Neuts Not Reportable 10/06/16 20:58 Hyposegmented Neuts Not Reportable 10/06/16 20:58 Hypogranular Neuts Not Reportable 10/06/16 20:58 Smudge Cells Not Reportable 10/06/16 20:58 Toxic Granulation Not Reportable 10/06/16 20:58 Toxic Vacuolation Not Reportable 10/06/16 20:58 Dohle Bodies Not Reportable 10/06/16 20:58 Pelger-Huet Anomaly Not Reportable 10/06/16 20:58 Lina Rods Not Reportable 10/06/16 20:58 Platelet Estimate Consistent w auto 10/06/16 20:58 Clumped Platelets Not Reportable 10/06/16 20:58 Plt Clumps, EDTA Not Reportable 10/06/16 20:58 Large Platelets Not Reportable 10/06/16 20:58 Giant Platelets Not Reportable 10/06/16 20:58 Platelet Satelliting Not Reportable 10/06/16 20:58 Plt Morphology Comment Not Reportable 10/06/16 20:58 RBC Morphology Not Reportable 10/06/16 20:58 Dimorphic RBCs Not Reportable 10/06/16 20:58 Polychromasia Not Reportable 10/06/16 20:58 Hypochromasia Not Reportable 10/06/16 20:58 Poikilocytosis Not Reportable 10/06/16 20:58 Anisocytosis 1+ 10/06/16 20:58 Microcytosis Not Reportable 10/06/16 20:58 Macrocytosis Not Reportable 10/06/16 20:58 Spherocytes Not Reportable 10/06/16 20:58 Pappenheimer Bodies Not Reportable 10/06/16 20:58 Sickle Cells Not Reportable 10/06/16 20:58 Target Cells Not Reportable 10/06/16 20:58 Tear Drop Cells Not Reportable 10/06/16 20:58 Ovalocytes Not Reportable 10/06/16 20:58 Helmet Cells Not Reportable 10/06/16 20:58 [place] Bodies Not Reportable 10/06/16 20:58 [place] Rings Not Reportable 10/06/16 20:58 [place] Cells Not Reportable 10/06/16 20:58 Bite Cells Not Reportable 10/06/16 20:58 Crenated Cell Not Reportable 10/06/16 20:58 Elliptocytes Not Reportable 10/06/16 20:58 Acanthocytes (Spur) Not Reportable 10/06/16 20:58 Rouleaux Not Reportable 10/06/16 20:58 Hemoglobin C Crystals Not Reportable 10/06/16 20:58 Schistocytes Not Reportable 10/06/16 20:58 Malaria parasites Not Reportable 10/06/16 20:58 Reyes Bodies Not Reportable 10/06/16 20:58 Hem Pathologist Commnt No 10/06/16 20:58 Sodium 141 mmol/L (137-145) 10/15/16 05:28 Potassium 3.8 mmol/L (3.6-5.0) 10/15/16 05:28 Chloride 103.2 mmol/L (98-107) 10/15/16 05:28 Carbon Dioxide 24 mmol/L (22-30) 10/15/16 05:28 Anion Gap 18 mmol/L 10/15/16 05:28 BUN 6 mg/dL (9-20) L 10/15/16 05:28 Creatinine 0.5 mg/dL (0.8-1.5) L 10/15/16 05:28 Estimated GFR > 60 ml/min 10/15/16 05:28 BUN/Creatinine Ratio 12.00 % 10/15/16 05:28 Glucose 95 mg/dL (75-100) 10/15/16 05:28 Lactic Acid 1.20 mmol/L (0.7-2.0) 10/07/16 08:15 Calcium 8.2 mg/dL (8.4-10.2) L 10/15/16 05:28 Phosphorus 4.30 mg/dL (2.5-4.5) 10/15/16 05:28 Magnesium 2.20 mg/dL (1.7-2.3) 10/15/16 05:28 Total Bilirubin 0.40 mg/dL (0.1-1.2) 10/07/16 20:34 AST 39 units/L (5-40) 10/07/16 20:34 ALT 24 units/L (7-56) 10/07/16 20:34 Alkaline Phosphatase 67 units/L (35-129) 10/07/16 20:34 Total Protein 7.1 g/dL (6.3-8.2) 10/07/16 20:34 Albumin 3.7 g/dL (3.9-5) L 10/07/16 20:34 Albumin/Globulin Ratio 1.1 % 10/07/16 20:34 Lipase 22 units/L (13-60) 10/06/16 20:58 Urine Color Yellow (Yellow) 10/06/16 20:50 Urine Turbidity Slightly-cloudy (Clear) 10/06/16 20:50 Urine pH 7.0 (5.0-7.0) 10/06/16 20:50 Ur Specific [place] 1.011 (1.003-1.030) 10/06/16 20:50 Urine Protein 100 mg/dl mg/dL (Negative) 10/06/16 20:50 Urine Glucose (UA) Neg mg/dL (Negative) 10/06/16 20:50 Urine Ketones Neg mg/dL (Negative) 10/06/16 20:50 Urine Blood Mod (Negative) 10/06/16 20:50 Urine Nitrite Pos (Negative) 10/06/16 20:50 Urine Bilirubin Neg (Negative) 10/06/16 20:50 Urine Urobilinogen < 2.0 mg/dL (<2.0) 10/06/16 20:50 Ur Leukocyte Esterase Lg (Negative) 10/06/16 20:50 Urine WBC (Auto) 10.0 /HPF (0.0-6.0) H 10/06/16 20:50 Urine RBC (Auto) 32.0 /HPF (0.0-6.0) 10/06/16 20:50 U Epithel Cells (Auto) < 1.0 /HPF (0-13.0) 10/06/16 20:50 Urine Bacteria (Auto) 2+ /HPF (Negative) 10/06/16 20:50 Urine Mucus Few /HPF 10/06/16 20:50 Ur Yeast w Hyphae 1+ /HPF 10/06/16 20:50
[2016-10-16] MEDS: FLOMAX PO SCH (11:39)
[2016-10-16] MEDS: CEPHULAC PO SCH (11:39)
[2016-10-16] MEDS: CEFTIN PO SCH (11:39)
[2016-10-16] MEDS: PROTONIX PO SCH (11:40)
[2016-10-16] MEDS: OYSCO D 500 MG-200 UNIT PO SCH (11:40)
[2016-10-16] MEDS: MIRALAX 3350 PO SCH (11:40)
[2016-10-16] MEDS: VITAMIN D3 PO SCH (11:41)
[2016-10-16] MEDS: THERAGRAN-M Tab PO SCH (11:41)
[2016-10-16] MEDS: ZESTRIL PO SCH (11:41)
[2016-10-16] MEDS: TRILEPTAL PO SCH (11:41)
[2016-10-16] MEDS: HEPARIN SUB-Q SCH (11:42)
[2016-10-17] MEDS: FLOMAX PO SCH ×3 (00:44→23:32)
[2016-10-17] MEDS: MIRALAX 3350 PO SCH ×3 (00:45→23:30)
[2016-10-17] MEDS: TRILEPTAL PO SCH ×3 (00:45→23:54)
[2016-10-17] MEDS: CEPHULAC PO SCH ×3 (00:45→23:32)
[2016-10-17] MEDS: HEPARIN SUB-Q SCH ×3 (00:46→23:32)
[2016-10-17] MEDS: CEFTIN PO SCH ×3 (01:00→23:31)
[2016-10-17] MEDS: D5NS 1,000 ML IV SCH ×2 (04:59→23:55)
--- NOTE | 2016-10-17 09:59 | Progress Note ---
Assessment and Plan Assessment and plan: -Abdomen pain, improved - likely due to ileus and constipation, - Continue on diet - had bowel movement yesterday. For Enema today. Increased dose of Miralax and Lactulose and added Dulcolax supp. -Hyponatremia. now resolved -cont IV fluids hydration, improved -UTI - acute cystitis - On Antibiotic. To complete tomorrow. Dementia with agitation Patient tries to hit with his hand sometimes -DVT prophylaxis- Heparin SQ ordered Was awaiting placement. Discussed with case management. May be discharged tomorrow to [facility]. History Interval history: Had bowel movement yesterday, less confused Hospitalist Physical - Physical exam Narrative exam: Gen Appearance: No acute distress, HEENT: normocephalic, atraumatic Neck: supple, no JVD Lungs: clear to auscultation bilaterally, no crackles or wheezes Heart: S1 and S2 regular, no murmurs or gallop Abdomen: Soft, non-tender, non-distended, normal bowel sounds Extremity:No edema, clubbing or cyanosis Neuro : Awake, alert, confused Psych :calm - Constitutional Vitals: Temp Pulse Resp BP Pulse Ox 98.8 F 77 18 144/95 95 10/17/16 00:00 10/17/16 00:00 10/17/16 00:00 10/17/16 00:00 10/17/16 00:00 General appearance: Present: no acute distress Results - Labs CBC & Chem 7: 10/08/16 07:01 10/15/16 05:28 Labs: Laboratory Last Values WBC 5.4 K/mm3 (4.5-11.0) 10/08/16 07:01 RBC 4.17 M/mm3 (3.65-5.03) 10/08/16 07:01 Hgb 13.2 gm/dl (11.8-15.2) 10/08/16 07:01 Hct 39.1 % (35.5-45.6) 10/08/16 07:01 MCV 94 fl (84-94) 10/08/16 07:01 MCH 32 pg (28-32) 10/08/16 07:01 MCHC 34 % (32-34) 10/08/16 07:01 RDW 13.6 % (13.2-15.2) 10/08/16 07:01 Plt Count 307 K/mm3 (140-440) 10/08/16 07:01 Lymph % (Auto) 15.3 % (13.4-35.0) 10/08/16 07:01 [place] % (Auto) 12.6 % (0.0-7.3) H 10/08/16 07:01 Eos % (Auto) 1.0 % (0.0-4.3) 10/08/16 07:01 Baso % (Auto) 0.7 % (0.0-1.8) 10/08/16 07:01 Lymph # 0.8 K/mm3 (1.2-5.4) L 10/08/16 07:01 [place] # 0.7 K/mm3 (0.0-0.8) 10/08/16 07:01 Eos # 0.1 K/mm3 (0.0-0.4) 10/08/16 07:01 Baso # 0.0 K/mm3 (0.0-0.1) 10/08/16 07:01 Add Manual Diff Complete 10/06/16 20:58 Total Counted 100 10/06/16 20:58 Seg Neutrophils % 70.4 % (40.0-70.0) H 10/08/16 07:01 Seg Neuts % (Manual) 57.0 % (40.0-70.0) 10/06/16 20:58 Band Neutrophils % 23.0 % 10/06/16 20:58 Lymphocytes % (Manual) 12.0 % (13.4-35.0) L 10/06/16 20:58 Reactive Lymphs % (Man) 0 % 10/06/16 20:58 Monocytes % (Manual) 7.0 % (0.0-7.3) 10/06/16 20:58 Eosinophils % (Manual) 1.0 % (0.0-4.3) 10/06/16 20:58 Basophils % (Manual) 0 % (0.0-1.8) 10/06/16 20:58 Metamyelocytes % 0 % 10/06/16 20:58 Myelocytes % 0 % 10/06/16 20:58 Promyelocytes % 0 % 10/06/16 20:58 Blast Cells % 0 % 10/06/16 20:58 Nucleated RBC % Not Reportable 10/06/16 20:58 Seg Neutrophils # 3.8 K/mm3 (1.8-7.7) 10/08/16 07:01 Seg Neutrophils # Man 3.2 K/mm3 (1.8-7.7) 10/06/16 20:58 Band Neutrophils # 1.3 K/mm3 10/06/16 20:58 Lymphocytes # (Manual) 0.7 K/mm3 (1.2-5.4) L 10/06/16 20:58 Abs React Lymphs (Man) 0.0 K/mm3 10/06/16 20:58 Monocytes # (Manual) 0.4 K/mm3 (0.0-0.8) 10/06/16 20:58 Eosinophils # (Manual) 0.1 K/mm3 (0.0-0.4) 10/06/16 20:58 Basophils # (Manual) 0.0 K/mm3 (0.0-0.1) 10/06/16 20:58 Metamyelocytes # 0.0 K/mm3 10/06/16 20:58 Myelocytes # 0.0 K/mm3 10/06/16 20:58 Promyelocytes # 0.0 K/mm3 10/06/16 20:58 Blast Cells # 0.0 K/mm3 10/06/16 20:58 WBC Morphology Not Reportable 10/06/16 20:58 Hypersegmented Neuts Not Reportable 10/06/16 20:58 Hyposegmented Neuts Not Reportable 10/06/16 20:58 Hypogranular Neuts Not Reportable 10/06/16 20:58 Smudge Cells Not Reportable 10/06/16 20:58 Toxic Granulation Not Reportable 10/06/16 20:58 Toxic Vacuolation Not Reportable 10/06/16 20:58 Dohle Bodies Not Reportable 10/06/16 20:58 Pelger-Huet Anomaly Not Reportable 10/06/16 20:58 Lina Rods Not Reportable 10/06/16 20:58 Platelet Estimate Consistent w auto 10/06/16 20:58 Clumped Platelets Not Reportable 10/06/16 20:58 Plt Clumps, EDTA Not Reportable 10/06/16 20:58 Large Platelets Not Reportable 10/06/16 20:58 Giant Platelets Not Reportable 10/06/16 20:58 Platelet Satelliting Not Reportable 10/06/16 20:58 Plt Morphology Comment Not Reportable 10/06/16 20:58 RBC Morphology Not Reportable 10/06/16 20:58 Dimorphic RBCs Not Reportable 10/06/16 20:58 Polychromasia Not Reportable 10/06/16 20:58 Hypochromasia Not Reportable 10/06/16 20:58 Poikilocytosis Not Reportable 10/06/16 20:58 Anisocytosis 1+ 10/06/16 20:58 Microcytosis Not Reportable 10/06/16 20:58 Macrocytosis Not Reportable 10/06/16 20:58 Spherocytes Not Reportable 10/06/16 20:58 Pappenheimer Bodies Not Reportable 10/06/16 20:58 Sickle Cells Not Reportable 10/06/16 20:58 Target Cells Not Reportable 10/06/16 20:58 Tear Drop Cells Not Reportable 10/06/16 20:58 Ovalocytes Not Reportable 10/06/16 20:58 Helmet Cells Not Reportable 10/06/16 20:58 [place] Bodies Not Reportable 10/06/16 20:58 [place] Rings Not Reportable 10/06/16 20:58 [place] Cells Not Reportable 10/06/16 20:58 Bite Cells Not Reportable 10/06/16 20:58 Crenated Cell Not Reportable 10/06/16 20:58 Elliptocytes Not Reportable 10/06/16 20:58 Acanthocytes (Spur) Not Reportable 10/06/16 20:58 Rouleaux Not Reportable 10/06/16 20:58 Hemoglobin C Crystals Not Reportable 10/06/16 20:58 Schistocytes Not Reportable 10/06/16 20:58 Malaria parasites Not Reportable 10/06/16 20:58 Reyes Bodies Not Reportable 10/06/16 20:58 Hem Pathologist Commnt No 10/06/16 20:58 Sodium 141 mmol/L (137-145) 10/15/16 05:28 Potassium 3.8 mmol/L (3.6-5.0) 10/15/16 05:28 Chloride 103.2 mmol/L (98-107) 10/15/16 05:28 Carbon Dioxide 24 mmol/L (22-30) 10/15/16 05:28 Anion Gap 18 mmol/L 10/15/16 05:28 BUN 6 mg/dL (9-20) L 10/15/16 05:28 Creatinine 0.5 mg/dL (0.8-1.5) L 10/15/16 05:28 Estimated GFR > 60 ml/min 10/15/16 05:28 BUN/Creatinine Ratio 12.00 % 10/15/16 05:28 Glucose 95 mg/dL (75-100) 10/15/16 05:28 Lactic Acid 1.20 mmol/L (0.7-2.0) 10/07/16 08:15 Calcium 8.2 mg/dL (8.4-10.2) L 10/15/16 05:28 Phosphorus 4.30 mg/dL (2.5-4.5) 10/15/16 05:28 Magnesium 2.20 mg/dL (1.7-2.3) 10/15/16 05:28 Total Bilirubin 0.40 mg/dL (0.1-1.2) 10/07/16 20:34 AST 39 units/L (5-40) 10/07/16 20:34 ALT 24 units/L (7-56) 10/07/16 20:34 Alkaline Phosphatase 67 units/L (35-129) 10/07/16 20:34 Total Protein 7.1 g/dL (6.3-8.2) 10/07/16 20:34 Albumin 3.7 g/dL (3.9-5) L 10/07/16 20:34 Albumin/Globulin Ratio 1.1 % 10/07/16 20:34 Lipase 22 units/L (13-60) 10/06/16 20:58 Urine Color Yellow (Yellow) 10/06/16 20:50 Urine Turbidity Slightly-cloudy (Clear) 10/06/16 20:50 Urine pH 7.0 (5.0-7.0) 10/06/16 20:50 Ur Specific [place] 1.011 (1.003-1.030) 10/06/16 20:50 Urine Protein 100 mg/dl mg/dL (Negative) 10/06/16 20:50 Urine Glucose (UA) Neg mg/dL (Negative) 10/06/16 20:50 Urine Ketones Neg mg/dL (Negative) 10/06/16 20:50 Urine Blood Mod (Negative) 10/06/16 20:50 Urine Nitrite Pos (Negative) 10/06/16 20:50 Urine Bilirubin Neg (Negative) 10/06/16 20:50 Urine Urobilinogen < 2.0 mg/dL (<2.0) 10/06/16 20:50 Ur Leukocyte Esterase Lg (Negative) 10/06/16 20:50 Urine WBC (Auto) 10.0 /HPF (0.0-6.0) H 10/06/16 20:50 Urine RBC (Auto) 32.0 /HPF (0.0-6.0) 10/06/16 20:50 U Epithel Cells (Auto) < 1.0 /HPF (0-13.0) 10/06/16 20:50 Urine Bacteria (Auto) 2+ /HPF (Negative) 10/06/16 20:50 Urine Mucus Few /HPF 10/06/16 20:50 Ur Yeast w Hyphae 1+ /HPF 10/06/16 20:50
[2016-10-17] MEDS: THERAGRAN-M Tab PO SCH (10:00)
[2016-10-17] MEDS: VITAMIN D3 PO SCH (10:00)
[2016-10-17] MEDS: ZESTRIL PO SCH (10:27)
[2016-10-17] MEDS: PROTONIX PO SCH (10:28)
[2016-10-17] MEDS: OYSCO D 500 MG-200 UNIT PO SCH (10:29)
[2016-10-17] MEDS ORDERED: FLEET PR ONE (16:00)
[2016-10-18] MEDS: D5NS 1,000 ML IV SCH (10:03)
[2016-10-18] MEDS: ZESTRIL PO SCH (10:04)
[2016-10-18] MEDS: HEPARIN SUB-Q SCH ×2 (10:05→23:23)
[2016-10-18] MEDS: PROTONIX PO SCH (10:05)
[2016-10-18] MEDS: OYSCO D 500 MG-200 UNIT PO SCH (10:05)
[2016-10-18] MEDS: THERAGRAN-M Tab PO SCH (10:05)
[2016-10-18] MEDS: FLOMAX PO SCH ×2 (10:05→23:18)
[2016-10-18] MEDS: MIRALAX 3350 PO SCH ×2 (10:06→23:19)
[2016-10-18] MEDS: CEPHULAC PO SCH ×2 (10:06→23:19)
[2016-10-18] MEDS: TRILEPTAL PO SCH ×2 (10:06→23:17)
[2016-10-18] MEDS: CEFTIN PO SCH (10:07)
[2016-10-18] MEDS: VITAMIN D3 PO SCH (10:07)
--- NOTE | 2016-10-18 10:17 | Progress Note ---
Assessment and Plan Assessment and plan: -Abdomen pain, improved - likely due to ileus and constipation, - Continue on diet - had bowel movement yesterday. For Enema today. -Hyponatremia. now resolved -cont IV fluids hydration, improved -UTI - acute cystitis - On Antibiotic. To complete tomorrow. Dementia with agitation Patient tries to hit with his hand sometimes -DVT prophylaxis- Heparin SQ Coughing and wheezing. Possible fluid overload vs bronchitis. Will d/c iv fluids , give lasix, Albuterol prn. Get Chest X ray.Cancel intended discharge for today. Was awaiting placement. Discussed with case management. May be discharged tomorrow to [facility]. History Interval history: Coughing and wheezing less confused Hospitalist Physical - Physical exam Narrative exam: Gen Appearance: No acute distress, HEENT: normocephalic, atraumatic Neck: supple, no JVD Lungs: clear to auscultation bilaterally, no crackles or wheezes Heart: S1 and S2 regular, no murmurs or gallop Abdomen: Soft, non-tender, non-distended, normal bowel sounds Extremity:No edema, clubbing or cyanosis Neuro : Awake, alert, confused Psych :calm - Constitutional Vitals: Temp Pulse Resp BP Pulse Ox 98.1 F 99 H 18 156/86 98 10/18/16 08:00 10/18/16 10:04 10/18/16 08:00 10/18/16 10:04 10/18/16 08:00 General appearance: Present: no acute distress Results - Labs CBC & Chem 7: 10/18/16 12:14 10/18/16 12:14 Labs: Laboratory Last Values WBC 5.4 K/mm3 (4.5-11.0) 10/08/16 07:01 RBC 4.17 M/mm3 (3.65-5.03) 10/08/16 07:01 Hgb 13.2 gm/dl (11.8-15.2) 10/08/16 07:01 Hct 39.1 % (35.5-45.6) 10/08/16 07:01 MCV 94 fl (84-94) 10/08/16 07:01 MCH 32 pg (28-32) 10/08/16 07:01 MCHC 34 % (32-34) 10/08/16 07:01 RDW 13.6 % (13.2-15.2) 10/08/16 07:01 Plt Count 307 K/mm3 (140-440) 10/08/16 07:01 Lymph % (Auto) 15.3 % (13.4-35.0) 10/08/16 07:01 [place] % (Auto) 12.6 % (0.0-7.3) H 10/08/16 07:01 Eos % (Auto) 1.0 % (0.0-4.3) 10/08/16 07:01 Baso % (Auto) 0.7 % (0.0-1.8) 10/08/16 07:01 Lymph # 0.8 K/mm3 (1.2-5.4) L 10/08/16 07:01 [place] # 0.7 K/mm3 (0.0-0.8) 10/08/16 07:01 Eos # 0.1 K/mm3 (0.0-0.4) 10/08/16 07:01 Baso # 0.0 K/mm3 (0.0-0.1) 10/08/16 07:01 Add Manual Diff Complete 10/06/16 20:58 Total Counted 100 10/06/16 20:58 Seg Neutrophils % 70.4 % (40.0-70.0) H 10/08/16 07:01 Seg Neuts % (Manual) 57.0 % (40.0-70.0) 10/06/16 20:58 Band Neutrophils % 23.0 % 10/06/16 20:58 Lymphocytes % (Manual) 12.0 % (13.4-35.0) L 10/06/16 20:58 Reactive Lymphs % (Man) 0 % 10/06/16 20:58 Monocytes % (Manual) 7.0 % (0.0-7.3) 10/06/16 20:58 Eosinophils % (Manual) 1.0 % (0.0-4.3) 10/06/16 20:58 Basophils % (Manual) 0 % (0.0-1.8) 10/06/16 20:58 Metamyelocytes % 0 % 10/06/16 20:58 Myelocytes % 0 % 10/06/16 20:58 Promyelocytes % 0 % 10/06/16 20:58 Blast Cells % 0 % 10/06/16 20:58 Nucleated RBC % Not Reportable 10/06/16 20:58 Seg Neutrophils # 3.8 K/mm3 (1.8-7.7) 10/08/16 07:01 Seg Neutrophils # Man 3.2 K/mm3 (1.8-7.7) 10/06/16 20:58 Band Neutrophils # 1.3 K/mm3 10/06/16 20:58 Lymphocytes # (Manual) 0.7 K/mm3 (1.2-5.4) L 10/06/16 20:58 Abs React Lymphs (Man) 0.0 K/mm3 10/06/16 20:58 Monocytes # (Manual) 0.4 K/mm3 (0.0-0.8) 10/06/16 20:58 Eosinophils # (Manual) 0.1 K/mm3 (0.0-0.4) 10/06/16 20:58 Basophils # (Manual) 0.0 K/mm3 (0.0-0.1) 10/06/16 20:58 Metamyelocytes # 0.0 K/mm3 10/06/16 20:58 Myelocytes # 0.0 K/mm3 10/06/16 20:58 Promyelocytes # 0.0 K/mm3 10/06/16 20:58 Blast Cells # 0.0 K/mm3 10/06/16 20:58 WBC Morphology Not Reportable 10/06/16 20:58 Hypersegmented Neuts Not Reportable 10/06/16 20:58 Hyposegmented Neuts Not Reportable 10/06/16 20:58 Hypogranular Neuts Not Reportable 10/06/16 20:58 Smudge Cells Not Reportable 10/06/16 20:58 Toxic Granulation Not Reportable 10/06/16 20:58 Toxic Vacuolation Not Reportable 10/06/16 20:58 Dohle Bodies Not Reportable 10/06/16 20:58 Pelger-Huet Anomaly Not Reportable 10/06/16 20:58 Lina Rods Not Reportable 10/06/16 20:58 Platelet Estimate Consistent w auto 10/06/16 20:58 Clumped Platelets Not Reportable 10/06/16 20:58 Plt Clumps, EDTA Not Reportable 10/06/16 20:58 Large Platelets Not Reportable 10/06/16 20:58 Giant Platelets Not Reportable 10/06/16 20:58 Platelet Satelliting Not Reportable 10/06/16 20:58 Plt Morphology Comment Not Reportable 10/06/16 20:58 RBC Morphology Not Reportable 10/06/16 20:58 Dimorphic RBCs Not Reportable 10/06/16 20:58 Polychromasia Not Reportable 10/06/16 20:58 Hypochromasia Not Reportable 10/06/16 20:58 Poikilocytosis Not Reportable 10/06/16 20:58 Anisocytosis 1+ 10/06/16 20:58 Microcytosis Not Reportable 10/06/16 20:58 Macrocytosis Not Reportable 10/06/16 20:58 Spherocytes Not Reportable 10/06/16 20:58 Pappenheimer Bodies Not Reportable 10/06/16 20:58 Sickle Cells Not Reportable 10/06/16 20:58 Target Cells Not Reportable 10/06/16 20:58 Tear Drop Cells Not Reportable 10/06/16 20:58 Ovalocytes Not Reportable 10/06/16 20:58 Helmet Cells Not Reportable 10/06/16 20:58 [place] Bodies Not Reportable 10/06/16 20:58 [place] Rings Not Reportable 10/06/16 20:58 [place] Cells Not Reportable 10/06/16 20:58 Bite Cells Not Reportable 10/06/16 20:58 Crenated Cell Not Reportable 10/06/16 20:58 Elliptocytes Not Reportable 10/06/16 20:58 Acanthocytes (Spur) Not Reportable 10/06/16 20:58 Rouleaux Not Reportable 10/06/16 20:58 Hemoglobin C Crystals Not Reportable 10/06/16 20:58 Schistocytes Not Reportable 10/06/16 20:58 Malaria parasites Not Reportable 10/06/16 20:58 Reyes Bodies Not Reportable 10/06/16 20:58 Hem Pathologist Commnt No 10/06/16 20:58 Sodium 141 mmol/L (137-145) 10/15/16 05:28 Potassium 3.8 mmol/L (3.6-5.0) 10/15/16 05:28 Chloride 103.2 mmol/L (98-107) 10/15/16 05:28 Carbon Dioxide 24 mmol/L (22-30) 10/15/16 05:28 Anion Gap 18 mmol/L 10/15/16 05:28 BUN 6 mg/dL (9-20) L 10/15/16 05:28 Creatinine 0.5 mg/dL (0.8-1.5) L 10/15/16 05:28 Estimated GFR > 60 ml/min 10/15/16 05:28 BUN/Creatinine Ratio 12.00 % 10/15/16 05:28 Glucose 95 mg/dL (75-100) 10/15/16 05:28 Lactic Acid 1.20 mmol/L (0.7-2.0) 10/07/16 08:15 Calcium 8.2 mg/dL (8.4-10.2) L 10/15/16 05:28 Phosphorus 4.30 mg/dL (2.5-4.5) 10/15/16 05:28 Magnesium 2.20 mg/dL (1.7-2.3) 10/15/16 05:28 Total Bilirubin 0.40 mg/dL (0.1-1.2) 10/07/16 20:34 AST 39 units/L (5-40) 10/07/16 20:34 ALT 24 units/L (7-56) 10/07/16 20:34 Alkaline Phosphatase 67 units/L (35-129) 10/07/16 20:34 Total Protein 7.1 g/dL (6.3-8.2) 10/07/16 20:34 Albumin 3.7 g/dL (3.9-5) L 10/07/16 20:34 Albumin/Globulin Ratio 1.1 % 10/07/16 20:34 Lipase 22 units/L (13-60) 10/06/16 20:58 Urine Color Yellow (Yellow) 10/06/16 20:50 Urine Turbidity Slightly-cloudy (Clear) 10/06/16 20:50 Urine pH 7.0 (5.0-7.0) 10/06/16 20:50 Ur Specific [place] 1.011 (1.003-1.030) 10/06/16 20:50 Urine Protein 100 mg/dl mg/dL (Negative) 10/06/16 20:50 Urine Glucose (UA) Neg mg/dL (Negative) 10/06/16 20:50 Urine Ketones Neg mg/dL (Negative) 10/06/16 20:50 Urine Blood Mod (Negative) 10/06/16 20:50 Urine Nitrite Pos (Negative) 10/06/16 20:50 Urine Bilirubin Neg (Negative) 10/06/16 20:50 Urine Urobilinogen < 2.0 mg/dL (<2.0) 10/06/16 20:50 Ur Leukocyte Esterase Lg (Negative) 10/06/16 20:50 Urine WBC (Auto) 10.0 /HPF (0.0-6.0) H 10/06/16 20:50 Urine RBC (Auto) 32.0 /HPF (0.0-6.0) 10/06/16 20:50 U Epithel Cells (Auto) < 1.0 /HPF (0-13.0) 10/06/16 20:50 Urine Bacteria (Auto) 2+ /HPF (Negative) 10/06/16 20:50 Urine Mucus Few /HPF 10/06/16 20:50 Ur Yeast w Hyphae 1+ /HPF 10/06/16 20:50
--- NOTE | 2016-10-18 10:22 | Discharge Summary ---
Providers - Providers Date of Admission: 10/07/16 10:42 Date of discharge: 10/18/16 Attending physician: KIESHA KOTHARI 10/08/16 12:40 Consult to Physician [CONS] Routine Consulting Provider: TRICIA FRAZIER Reason For Exam: bowel obstruction Place consult to:: Dr. Frazier Notified:: Lili BRUNSON Was contact made?: Yes If yes, spoke with:: Dr. Frazier Time called:: 13:44 10/09/16 09:39 Consult to Dietitian/Nutrition [CONS] Routine Physician Instructions: Reason For Exam: Reason for Consult: britney score 13 10/10/16 09:56 Physical Therapy Evaluation and Treat [CONS] Routine Comment: Reason For Exam: EVAL/TREAT Primary care physician: WASH WORKER Hospitalization Condition: Fair Disposition: DC-01 TO HOME OR SELFCARE - Discharge Diagnoses (1) Abdominal pain Status: Acute Qualifiers: Abdominal location: lower abdomen, unspecified Qualified Code(s): R10.30 - Lower abdominal pain, unspecified (2) Hypertension Status: Chronic Qualifiers: Hypertension type: essential hypertension Qualified Code(s): I10 - Essential (primary) hypertension (3) Intellectual disability Status: Chronic (4) Ileus Status: Acute (5) Constipation Status: Acute Qualifiers: Constipation type: C (6) UTI (urinary tract infection) Status: Acute Qualifiers: Urinary tract infection type: U Hematuria presence: H Indwelling urinary catheter type: I Encounter type: E Exam - Constitutional Vitals: Temp Pulse Resp BP Pulse Ox 98.1 F 99 H 18 156/86 98 10/18/16 08:00 10/18/16 10:04 10/18/16 08:00 10/18/16 10:04 10/18/16 08:00 Plan Activity: advance as tolerated Diet: low fat, low salt, other (soft diet) Additional Instructions: 1.Follow up with PCP in 1 week Follow up with: TOSHA STEPHENSON MD [Primary Care Provider] - 3-5 Days
[2016-10-18] MEDS ORDERED: PROVENTIL IH PRN (10:40)
--- NOTE | 2016-10-18 11:29 | XRay Report ---
AP CHEST :10/18/16 10:36:00 CLINICAL: Cough. COMPARISON:09/22/16 FINDINGS: Normal heart and pulmonary vasculature. The lungs are slightly underexpanded. No airspace disease or pleural effusion. The bones and soft tissues are normal. IMPRESSION: No acute cardiopulmonary process.
[2016-10-18] MEDS ORDERED: LASIX IV ONE (12:32)
[2016-10-18 12:36] LABS: Hematocrit 36.1 % (35.5-45.6); Hemoglobin 12.1 gm/dl (11.8-15.2); Mean Corpuscular HGB Conc 34 % (32-34); Mean Corpuscular Hemoglobin 32 pg (28-32); Mean Corpuscular Volume 94 fl (84-94); Platelet Count 232 K/mm3 (140-440); Red Blood Count 3.85 M/mm3 (3.65-5.03); White Blood Count 14.3 K/mm3 (4.5-11.0)
[2016-10-18 12:52] LABS: Anion Gap 17 mmol/L; Blood Urea Nitrogen 6 mg/dL (9-20); Calcium 8.3 mg/dL (8.4-10.2); Carbon Dioxide 21 mmol/L (22-30); Chloride 99.8 mmol/L (98-107); Glucose 112 mg/dL (75-100); Sodium 134 mmol/L (137-145)
[2016-10-18] MEDS ORDERED: FLEET PR ONE (14:00)
[2016-10-19] MEDS: CEFTIN PO SCH ×2 (04:07→10:02)
[2016-10-19 07:01] LABS: Hematocrit 39.8 % (35.5-45.6); Hemoglobin 13.1 gm/dl (11.8-15.2); Mean Corpuscular HGB Conc 33 % (32-34); Mean Corpuscular Hemoglobin 31 pg (28-32); Mean Corpuscular Volume 95 fl (84-94); Platelet Count 245 K/mm3 (140-440); Red Blood Count 4.18 M/mm3 (3.65-5.03); Red Cell Distribution Width 14.3 % (13.2-15.2); White Blood Count 13.8 K/mm3 (4.5-11.0)
[2016-10-19] MEDS: THERAGRAN-M Tab PO SCH (09:44)
[2016-10-19] MEDS: FLOMAX PO SCH (09:44)
[2016-10-19] MEDS: MIRALAX 3350 PO SCH (09:44)
[2016-10-19] MEDS: CEPHULAC PO SCH (09:44)
[2016-10-19] MEDS: OYSCO D 500 MG-200 UNIT PO SCH (09:44)
[2016-10-19] MEDS: ZESTRIL PO SCH (09:44)
[2016-10-19] MEDS: HEPARIN SUB-Q SCH (09:44)
[2016-10-19] MEDS: PROTONIX PO SCH (09:45)
[2016-10-19] MEDS: TRILEPTAL PO SCH (09:46)
[2016-10-19] MEDS: VITAMIN D3 PO SCH (10:03)
--- NOTE | 2016-10-19 12:58 | Progress Note ---
Assessment and Plan Assessment and plan: -Abdomen pain, - Was due to ileus and constipation, now resolved - Continue on diet - Has had bowel movements. -Hyponatremia. now resolved -cont IV fluids hydration, improved -UTI - acute cystitis - Completed Antibiotics Dementia with agitation Patient tries to hit with his hand sometimes -DVT prophylaxis- Heparin SQ Coughing subsided. Chest x ray was unremarkable. Was awaiting placement. Discussed with case management and was told can return to [facility]. However Nurse today says, personal longterm will only accept after he is off restraints for 24 hrs, so cannot go yet. - Patient Problems (1) Abdominal pain Current Visit: Yes Status: Acute Qualifiers: Abdominal location: lower abdomen, unspecified Qualified Code(s): R10.30 - Lower abdominal pain, unspecified (2) Hypertension Current Visit: No Status: Chronic Qualifiers: Hypertension type: essential hypertension Qualified Code(s): I10 - Essential (primary) hypertension (3) Intellectual disability Current Visit: No Status: Chronic (4) Ileus Current Visit: Yes Status: Acute (5) Constipation Current Visit: Yes Status: Acute Qualifiers: Constipation type: C (6) UTI (urinary tract infection) Current Visit: Yes Status: Acute Qualifiers: Urinary tract infection type: U Hematuria presence: H Indwelling urinary catheter type: I Encounter type: E History Interval history: Still confused Agitated on and off Hospitalist Physical - Physical exam Narrative exam: Gen Appearance: No acute distress, HEENT: normocephalic, atraumatic Neck: supple, no JVD Lungs: clear to auscultation bilaterally, no crackles or wheezes Heart: S1 and S2 regular, no murmurs or gallop Abdomen: Soft, non-tender, non-distended, normal bowel sounds Extremity:No edema, clubbing or cyanosis Neuro : Awake, alert, confused Psych :calm - Constitutional Vitals: Temp Pulse Resp BP Pulse Ox 97.8 F 68 20 137/89 98 10/19/16 08:35 10/19/16 09:44 10/19/16 08:35 10/19/16 09:44 10/19/16 09:10 General appearance: Present: no acute distress Results - Labs CBC & Chem 7: 10/19/16 06:29 10/18/16 12:14 Labs: Laboratory Last Values WBC 13.8 K/mm3 (4.5-11.0) H 10/19/16 06:29 RBC 4.18 M/mm3 (3.65-5.03) 10/19/16 06:29 Hgb 13.1 gm/dl (11.8-15.2) 10/19/16 06:29 Hct 39.8 % (35.5-45.6) 10/19/16 06:29 MCV 95 fl (84-94) H 10/19/16 06:29 MCH 31 pg (28-32) 10/19/16 06:29 MCHC 33 % (32-34) 10/19/16 06:29 RDW 14.3 % (13.2-15.2) 10/19/16 06:29 Plt Count 245 K/mm3 (140-440) 10/19/16 06:29 Lymph % (Auto) 15.3 % (13.4-35.0) 10/08/16 07:01 [place] % (Auto) 12.6 % (0.0-7.3) H 10/08/16 07:01 Eos % (Auto) 1.0 % (0.0-4.3) 10/08/16 07:01 Baso % (Auto) 0.7 % (0.0-1.8) 10/08/16 07:01 Lymph # 0.8 K/mm3 (1.2-5.4) L 10/08/16 07:01 [place] # 0.7 K/mm3 (0.0-0.8) 10/08/16 07:01 Eos # 0.1 K/mm3 (0.0-0.4) 10/08/16 07:01 Baso # 0.0 K/mm3 (0.0-0.1) 10/08/16 07:01 Add Manual Diff Complete 10/06/16 20:58 Total Counted 100 10/06/16 20:58 Seg Neutrophils % 70.4 % (40.0-70.0) H 10/08/16 07:01 Seg Neuts % (Manual) 57.0 % (40.0-70.0) 10/06/16 20:58 Band Neutrophils % 23.0 % 10/06/16 20:58 Lymphocytes % (Manual) 12.0 % (13.4-35.0) L 10/06/16 20:58 Reactive Lymphs % (Man) 0 % 10/06/16 20:58 Monocytes % (Manual) 7.0 % (0.0-7.3) 10/06/16 20:58 Eosinophils % (Manual) 1.0 % (0.0-4.3) 10/06/16 20:58 Basophils % (Manual) 0 % (0.0-1.8) 10/06/16 20:58 Metamyelocytes % 0 % 10/06/16 20:58 Myelocytes % 0 % 10/06/16 20:58 Promyelocytes % 0 % 10/06/16 20:58 Blast Cells % 0 % 10/06/16 20:58 Nucleated RBC % Not Reportable 10/06/16 20:58 Seg Neutrophils # 3.8 K/mm3 (1.8-7.7) 10/08/16 07:01 Seg Neutrophils # Man 3.2 K/mm3 (1.8-7.7) 10/06/16 20:58 Band Neutrophils # 1.3 K/mm3 10/06/16 20:58 Lymphocytes # (Manual) 0.7 K/mm3 (1.2-5.4) L 10/06/16 20:58 Abs React Lymphs (Man) 0.0 K/mm3 10/06/16 20:58 Monocytes # (Manual) 0.4 K/mm3 (0.0-0.8) 10/06/16 20:58 Eosinophils # (Manual) 0.1 K/mm3 (0.0-0.4) 10/06/16 20:58 Basophils # (Manual) 0.0 K/mm3 (0.0-0.1) 10/06/16 20:58 Metamyelocytes # 0.0 K/mm3 10/06/16 20:58 Myelocytes # 0.0 K/mm3 10/06/16 20:58 Promyelocytes # 0.0 K/mm3 10/06/16 20:58 Blast Cells # 0.0 K/mm3 10/06/16 20:58 WBC Morphology Not Reportable 10/06/16 20:58 Hypersegmented Neuts Not Reportable 10/06/16 20:58 Hyposegmented Neuts Not Reportable 10/06/16 20:58 Hypogranular Neuts Not Reportable 10/06/16 20:58 Smudge Cells Not Reportable 10/06/16 20:58 Toxic Granulation Not Reportable 10/06/16 20:58 Toxic Vacuolation Not Reportable 10/06/16 20:58 Dohle Bodies Not Reportable 10/06/16 20:58 Pelger-Huet Anomaly Not Reportable 10/06/16 20:58 Lina Rods Not Reportable 10/06/16 20:58 Platelet Estimate Consistent w auto 10/06/16 20:58 Clumped Platelets Not Reportable 10/06/16 20:58 Plt Clumps, EDTA Not Reportable 10/06/16 20:58 Large Platelets Not Reportable 10/06/16 20:58 Giant Platelets Not Reportable 10/06/16 20:58 Platelet Satelliting Not Reportable 10/06/16 20:58 Plt Morphology Comment Not Reportable 10/06/16 20:58 RBC Morphology Not Reportable 10/06/16 20:58 Dimorphic RBCs Not Reportable 10/06/16 20:58 Polychromasia Not Reportable 10/06/16 20:58 Hypochromasia Not Reportable 10/06/16 20:58 Poikilocytosis Not Reportable 10/06/16 20:58 Anisocytosis 1+ 10/06/16 20:58 Microcytosis Not Reportable 10/06/16 20:58 Macrocytosis Not Reportable 10/06/16 20:58 Spherocytes Not Reportable 10/06/16 20:58 Pappenheimer Bodies Not Reportable 10/06/16 20:58 Sickle Cells Not Reportable 10/06/16 20:58 Target Cells Not Reportable 10/06/16 20:58 Tear Drop Cells Not Reportable 10/06/16 20:58 Ovalocytes Not Reportable 10/06/16 20:58 Helmet Cells Not Reportable 10/06/16 20:58 [place] Bodies Not Reportable 10/06/16 20:58 [place] Rings Not Reportable 10/06/16 20:58 [place] Cells Not Reportable 10/06/16 20:58 Bite Cells Not Reportable 10/06/16 20:58 Crenated Cell Not Reportable 10/06/16 20:58 Elliptocytes Not Reportable 10/06/16 20:58 Acanthocytes (Spur) Not Reportable 10/06/16 20:58 Rouleaux Not Reportable 10/06/16 20:58 Hemoglobin C Crystals Not Reportable 10/06/16 20:58 Schistocytes Not Reportable 10/06/16 20:58 Malaria parasites Not Reportable 10/06/16 20:58 Reyes Bodies Not Reportable 10/06/16 20:58 Hem Pathologist Commnt No 10/06/16 20:58 Sodium 134 mmol/L (137-145) L 10/18/16 12:14 Potassium 4.0 mmol/L (3.6-5.0) 10/18/16 12:14 Chloride 99.8 mmol/L (98-107) 10/18/16 12:14 Carbon Dioxide 21 mmol/L (22-30) L 10/18/16 12:14 Anion Gap 17 mmol/L 10/18/16 12:14 BUN 6 mg/dL (9-20) L 10/18/16 12:14 Creatinine 0.6 mg/dL (0.8-1.5) L 10/18/16 12:14 Estimated GFR > 60 ml/min 10/18/16 12:14 BUN/Creatinine Ratio 10.00 % 10/18/16 12:14 Glucose 112 mg/dL (75-100) H 10/18/16 12:14 Lactic Acid 1.20 mmol/L (0.7-2.0) 10/07/16 08:15 Calcium 8.3 mg/dL (8.4-10.2) L 10/18/16 12:14 Phosphorus 4.30 mg/dL (2.5-4.5) 10/15/16 05:28 Magnesium 2.20 mg/dL (1.7-2.3) 10/15/16 05:28 Total Bilirubin 0.40 mg/dL (0.1-1.2) 10/07/16 20:34 AST 39 units/L (5-40) 10/07/16 20:34 ALT 24 units/L (7-56) 10/07/16 20:34 Alkaline Phosphatase 67 units/L (35-129) 10/07/16 20:34 NT-Pro-B Natriuret Pep 58.62 pg/mL (0-900) 10/18/16 12:14 Total Protein 7.1 g/dL (6.3-8.2) 10/07/16 20:34 Albumin 3.7 g/dL (3.9-5) L 10/07/16 20:34 Albumin/Globulin Ratio 1.1 % 10/07/16 20:34 Lipase 22 units/L (13-60) 10/06/16 20:58 Urine Color Yellow (Yellow) 10/06/16 20:50 Urine Turbidity Slightly-cloudy (Clear) 10/06/16 20:50 Urine pH 7.0 (5.0-7.0) 10/06/16 20:50 Ur Specific [place] 1.011 (1.003-1.030) 10/06/16 20:50 Urine Protein 100 mg/dl mg/dL (Negative) 10/06/16 20:50 Urine Glucose (UA) Neg mg/dL (Negative) 10/06/16 20:50 Urine Ketones Neg mg/dL (Negative) 10/06/16 20:50 Urine Blood Mod (Negative) 10/06/16 20:50 Urine Nitrite Pos (Negative) 10/06/16 20:50 Urine Bilirubin Neg (Negative) 10/06/16 20:50 Urine Urobilinogen < 2.0 mg/dL (<2.0) 10/06/16 20:50 Ur Leukocyte Esterase Lg (Negative) 10/06/16 20:50 Urine WBC (Auto) 10.0 /HPF (0.0-6.0) H 10/06/16 20:50 Urine RBC (Auto) 32.0 /HPF (0.0-6.0) 10/06/16 20:50 U Epithel Cells (Auto) < 1.0 /HPF (0-13.0) 10/06/16 20:50 Urine Bacteria (Auto) 2+ /HPF (Negative) 10/06/16 20:50 Urine Mucus Few /HPF 10/06/16 20:50 Ur Yeast w Hyphae 1+ /HPF 10/06/16 20:50
[2016-10-19] MEDS ORDERED: HALDOL IM PRN (13:51)
[2016-10-20] MEDS: CEFTIN PO SCH ×2 (01:07→10:42)
[2016-10-20] MEDS: CEPHULAC PO SCH ×2 (01:07→10:33)
[2016-10-20] MEDS: MIRALAX 3350 PO SCH ×2 (01:07→10:34)
[2016-10-20] MEDS: TRILEPTAL PO SCH ×2 (01:07→10:34)
[2016-10-20] MEDS: FLOMAX PO SCH ×2 (01:08→10:35)
[2016-10-20] MEDS: HEPARIN SUB-Q SCH ×2 (01:15→10:33)
[2016-10-20] MEDS: OYSCO D 500 MG-200 UNIT PO SCH (10:33)
[2016-10-20] MEDS: VITAMIN D3 PO SCH (10:34)
[2016-10-20] MEDS: ZESTRIL PO SCH (10:34)
[2016-10-20] MEDS: PROTONIX PO SCH (10:35)
[2016-10-20] MEDS: THERAGRAN-M Tab PO SCH (10:35)
--- NOTE | 2016-10-20 10:48 | Progress Note ---
Assessment and Plan - Patient Problems (1) Abdominal pain Current Visit: Yes Status: Acute Qualifiers: Abdominal location: lower abdomen, unspecified Qualified Code(s): R10.30 - Lower abdominal pain, unspecified (2) Hypertension Current Visit: No Status: Chronic Qualifiers: Hypertension type: essential hypertension Qualified Code(s): I10 - Essential (primary) hypertension (3) Intellectual disability Current Visit: No Status: Chronic (4) Ileus Current Visit: Yes Status: Acute (5) Constipation Current Visit: Yes Status: Acute Qualifiers: Constipation type: C (6) UTI (urinary tract infection) Current Visit: Yes Status: Acute Qualifiers: Urinary tract infection type: U Hematuria presence: H Indwelling urinary catheter type: I Encounter type: E Hospitalist Physical - Constitutional Vitals: Temp Pulse Resp BP Pulse Ox 98.7 F 84 20 135/90 96 10/20/16 08:37 10/20/16 10:34 10/20/16 08:37 10/20/16 10:34 10/20/16 08:37 General appearance: Present: no acute distress Results - Labs CBC & Chem 7: 10/19/16 06:29 10/18/16 12:14 Labs: Laboratory Last Values WBC 13.8 K/mm3 (4.5-11.0) H 10/19/16 06:29 RBC 4.18 M/mm3 (3.65-5.03) 10/19/16 06:29 Hgb 13.1 gm/dl (11.8-15.2) 10/19/16 06:29 Hct 39.8 % (35.5-45.6) 10/19/16 06:29 MCV 95 fl (84-94) H 10/19/16 06:29 MCH 31 pg (28-32) 10/19/16 06:29 MCHC 33 % (32-34) 10/19/16 06:29 RDW 14.3 % (13.2-15.2) 10/19/16 06:29 Plt Count 245 K/mm3 (140-440) 10/19/16 06:29 Lymph % (Auto) 15.3 % (13.4-35.0) 10/08/16 07:01 [place] % (Auto) 12.6 % (0.0-7.3) H 10/08/16 07:01 Eos % (Auto) 1.0 % (0.0-4.3) 10/08/16 07:01 Baso % (Auto) 0.7 % (0.0-1.8) 10/08/16 07:01 Lymph # 0.8 K/mm3 (1.2-5.4) L 10/08/16 07:01 [place] # 0.7 K/mm3 (0.0-0.8) 10/08/16 07:01 Eos # 0.1 K/mm3 (0.0-0.4) 10/08/16 07:01 Baso # 0.0 K/mm3 (0.0-0.1) 10/08/16 07:01 Add Manual Diff Complete 10/06/16 20:58 Total Counted 100 10/06/16 20:58 Seg Neutrophils % 70.4 % (40.0-70.0) H 10/08/16 07:01 Seg Neuts % (Manual) 57.0 % (40.0-70.0) 10/06/16 20:58 Band Neutrophils % 23.0 % 10/06/16 20:58 Lymphocytes % (Manual) 12.0 % (13.4-35.0) L 10/06/16 20:58 Reactive Lymphs % (Man) 0 % 10/06/16 20:58 Monocytes % (Manual) 7.0 % (0.0-7.3) 10/06/16 20:58 Eosinophils % (Manual) 1.0 % (0.0-4.3) 10/06/16 20:58 Basophils % (Manual) 0 % (0.0-1.8) 10/06/16 20:58 Metamyelocytes % 0 % 10/06/16 20:58 Myelocytes % 0 % 10/06/16 20:58 Promyelocytes % 0 % 10/06/16 20:58 Blast Cells % 0 % 10/06/16 20:58 Nucleated RBC % Not Reportable 10/06/16 20:58 Seg Neutrophils # 3.8 K/mm3 (1.8-7.7) 10/08/16 07:01 Seg Neutrophils # Man 3.2 K/mm3 (1.8-7.7) 10/06/16 20:58 Band Neutrophils # 1.3 K/mm3 10/06/16 20:58 Lymphocytes # (Manual) 0.7 K/mm3 (1.2-5.4) L 10/06/16 20:58 Abs React Lymphs (Man) 0.0 K/mm3 10/06/16 20:58 Monocytes # (Manual) 0.4 K/mm3 (0.0-0.8) 10/06/16 20:58 Eosinophils # (Manual) 0.1 K/mm3 (0.0-0.4) 10/06/16 20:58 Basophils # (Manual) 0.0 K/mm3 (0.0-0.1) 10/06/16 20:58 Metamyelocytes # 0.0 K/mm3 10/06/16 20:58 Myelocytes # 0.0 K/mm3 10/06/16 20:58 Promyelocytes # 0.0 K/mm3 10/06/16 20:58 Blast Cells # 0.0 K/mm3 10/06/16 20:58 WBC Morphology Not Reportable 10/06/16 20:58 Hypersegmented Neuts Not Reportable 10/06/16 20:58 Hyposegmented Neuts Not Reportable 10/06/16 20:58 Hypogranular Neuts Not Reportable 10/06/16 20:58 Smudge Cells Not Reportable 10/06/16 20:58 Toxic Granulation Not Reportable 10/06/16 20:58 Toxic Vacuolation Not Reportable 10/06/16 20:58 Dohle Bodies Not Reportable 10/06/16 20:58 Pelger-Huet Anomaly Not Reportable 10/06/16 20:58 Lina Rods Not Reportable 10/06/16 20:58 Platelet Estimate Consistent w auto 10/06/16 20:58 Clumped Platelets Not Reportable 10/06/16 20:58 Plt Clumps, EDTA Not Reportable 10/06/16 20:58 Large Platelets Not Reportable 10/06/16 20:58 Giant Platelets Not Reportable 10/06/16 20:58 Platelet Satelliting Not Reportable 10/06/16 20:58 Plt Morphology Comment Not Reportable 10/06/16 20:58 RBC Morphology Not Reportable 10/06/16 20:58 Dimorphic RBCs Not Reportable 10/06/16 20:58 Polychromasia Not Reportable 10/06/16 20:58 Hypochromasia Not Reportable 10/06/16 20:58 Poikilocytosis Not Reportable 10/06/16 20:58 Anisocytosis 1+ 10/06/16 20:58 Microcytosis Not Reportable 10/06/16 20:58 Macrocytosis Not Reportable 10/06/16 20:58 Spherocytes Not Reportable 10/06/16 20:58 Pappenheimer Bodies Not Reportable 10/06/16 20:58 Sickle Cells Not Reportable 10/06/16 20:58 Target Cells Not Reportable 10/06/16 20:58 Tear Drop Cells Not Reportable 10/06/16 20:58 Ovalocytes Not Reportable 10/06/16 20:58 Helmet Cells Not Reportable 10/06/16 20:58 [place] Bodies Not Reportable 10/06/16 20:58 [place] Rings Not Reportable 10/06/16 20:58 [place] Cells Not Reportable 10/06/16 20:58 Bite Cells Not Reportable 10/06/16 20:58 Crenated Cell Not Reportable 10/06/16 20:58 Elliptocytes Not Reportable 10/06/16 20:58 Acanthocytes (Spur) Not Reportable 10/06/16 20:58 Rouleaux Not Reportable 10/06/16 20:58 Hemoglobin C Crystals Not Reportable 10/06/16 20:58 Schistocytes Not Reportable 10/06/16 20:58 Malaria parasites Not Reportable 10/06/16 20:58 Reyes Bodies Not Reportable 10/06/16 20:58 Hem Pathologist Commnt No 10/06/16 20:58 Sodium 134 mmol/L (137-145) L 10/18/16 12:14 Potassium 4.0 mmol/L (3.6-5.0) 10/18/16 12:14 Chloride 99.8 mmol/L (98-107) 10/18/16 12:14 Carbon Dioxide 21 mmol/L (22-30) L 10/18/16 12:14 Anion Gap 17 mmol/L 10/18/16 12:14 BUN 6 mg/dL (9-20) L 10/18/16 12:14 Creatinine 0.6 mg/dL (0.8-1.5) L 10/18/16 12:14 Estimated GFR > 60 ml/min 10/18/16 12:14 BUN/Creatinine Ratio 10.00 % 10/18/16 12:14 Glucose 112 mg/dL (75-100) H 10/18/16 12:14 Lactic Acid 1.20 mmol/L (0.7-2.0) 10/07/16 08:15 Calcium 8.3 mg/dL (8.4-10.2) L 10/18/16 12:14 Phosphorus 4.30 mg/dL (2.5-4.5) 10/15/16 05:28 Magnesium 2.20 mg/dL (1.7-2.3) 10/15/16 05:28 Total Bilirubin 0.40 mg/dL (0.1-1.2) 10/07/16 20:34 AST 39 units/L (5-40) 10/07/16 20:34 ALT 24 units/L (7-56) 10/07/16 20:34 Alkaline Phosphatase 67 units/L (35-129) 10/07/16 20:34 NT-Pro-B Natriuret Pep 58.62 pg/mL (0-900) 10/18/16 12:14 Total Protein 7.1 g/dL (6.3-8.2) 10/07/16 20:34 Albumin 3.7 g/dL (3.9-5) L 10/07/16 20:34 Albumin/Globulin Ratio 1.1 % 10/07/16 20:34 Lipase 22 units/L (13-60) 10/06/16 20:58 Urine Color Yellow (Yellow) 10/06/16 20:50 Urine Turbidity Slightly-cloudy (Clear) 10/06/16 20:50 Urine pH 7.0 (5.0-7.0) 10/06/16 20:50 Ur Specific [place] 1.011 (1.003-1.030) 10/06/16 20:50 Urine Protein 100 mg/dl mg/dL (Negative) 10/06/16 20:50 Urine Glucose (UA) Neg mg/dL (Negative) 10/06/16 20:50 Urine Ketones Neg mg/dL (Negative) 10/06/16 20:50 Urine Blood Mod (Negative) 10/06/16 20:50 Urine Nitrite Pos (Negative) 10/06/16 20:50 Urine Bilirubin Neg (Negative) 10/06/16 20:50 Urine Urobilinogen < 2.0 mg/dL (<2.0) 10/06/16 20:50 Ur Leukocyte Esterase Lg (Negative) 10/06/16 20:50 Urine WBC (Auto) 10.0 /HPF (0.0-6.0) H 10/06/16 20:50 Urine RBC (Auto) 32.0 /HPF (0.0-6.0) 10/06/16 20:50 U Epithel Cells (Auto) < 1.0 /HPF (0-13.0) 10/06/16 20:50 Urine Bacteria (Auto) 2+ /HPF (Negative) 10/06/16 20:50 Urine Mucus Few /HPF 10/06/16 20:50 Ur Yeast w Hyphae 1+ /HPF 10/06/16 20:50
--- NOTE | 2016-10-20 13:36 | Discharge Summary ---
Providers - Providers Date of Admission: 10/07/16 10:42 Date of discharge: 10/20/16 Attending physician: KIESHA KOTHARI 10/08/16 12:40 Consult to Physician [CONS] Routine Consulting Provider: TRICIA ANDRES Reason For Exam: bowel obstruction Place consult to:: Dr. Andres Notified:: Lili BRUNSON Was contact made?: Yes If yes, spoke with:: Dr. Andres Time called:: 13:44 10/09/16 09:39 Consult to Dietitian/Nutrition [CONS] Routine Physician Instructions: Reason For Exam: Reason for Consult: britney score 13 10/10/16 09:56 Physical Therapy Evaluation and Treat [CONS] Routine Comment: Reason For Exam: EVAL/TREAT Primary care physician: INFORMATION SERVICES MANAGER Hospitalization Condition: Fair Hospital course: Patient is 61 yo with intellectual disability, living at long term. He was brought in because of abdominal pain and decreased urine output. Workup in ED revealed UTI and hyponatremia. He was started on iv fluids, Ceftriaxone iv. Abdominal pain persisted and radiological studies show ileus and constipation. He was given Miralax, Lactulose, Milk of Magnesia and eventually Fleet enema and improved slowly. Constipation resolved, he had bowel movements. During stay he was agitated on and off and was given Haldol prn. he had a prolonged stay and eventually discharged back to long term on 10/20/16. Total time spent on discharge, 33 mins Disposition: DC-01 TO HOME OR SELFCARE - Discharge Diagnoses (1) Abdominal pain Status: Acute Qualifiers: Abdominal location: lower abdomen, unspecified Qualified Code(s): R10.30 - Lower abdominal pain, unspecified (2) Hypertension Status: Chronic Qualifiers: Hypertension type: essential hypertension Qualified Code(s): I10 - Essential (primary) hypertension (3) Intellectual disability Status: Chronic (4) Ileus Status: Acute (5) Constipation Status: Acute Qualifiers: Constipation type: C (6) UTI (urinary tract infection) Status: Acute Qualifiers: Urinary tract infection type: acute cystitis Hematuria presence: H Indwelling urinary catheter type: I Encounter type: E Core Measure Documentation - Palliative Care Palliative Care/ Comfort Measures: Not Applicable - Core Measures Any of the following diagnoses?: none Exam - Physical Exam Narrative exam: Gen Appearance: No acute distress, HEENT: normocephalic, atraumatic Neck: supple, no JVD Lungs: clear to auscultation bilaterally, no crackles or wheezes Heart: S1 and S2 regular, no murmurs or gallop Abdomen: Soft, non-tender, non-distended, normal bowel sounds Extremity:No edema, clubbing or cyanosis Neuro : Awake, alert, confused Psych :calm - Constitutional Vitals: Temp Pulse Resp BP Pulse Ox 97.9 F 85 20 146/73 96 10/20/16 11:19 10/20/16 11:19 10/20/16 11:19 10/20/16 11:19 10/20/16 08:37 Plan Activity: advance as tolerated Diet: other (GI soft diet) Additional Instructions: 1.Follow up with PCP in 1 week Follow up with: PRIMARY MD SACHIN [Primary Care Provider] - 3-5 Days
[2016-10-20 13:56] VITALS: BP 150/80
--- NOTE | 2016-10-24 10:48 | Query-Altered Level of Consc. ---
Ella Choi____Fran Date:___10/24/2016 Hoop Bending Machine Operator/CDS:__Concepcion/[place] Phone#:___[phone] Exercise your independent professional judgment when responding to this query. Questions asked do not imply a particular answer is desired or expected. We greatly appreciate your clarification on this issue. Clinical Documentation States: 61 Year old male was admitted on 10/07/2016. The IM progress note on 10/10/2016 states " -Hyponatremia -cont IV fluids hydration, improved -UTI -possible acute cystitis - On Emperic Antibiotis ordered Urine cultures possible contamination Change to oral antibiotic with Ceftin Dementia with ? agitation Per nursing staff tries to hit with his hand some times Subjective: Patient is confused Has indwelling [place] catheter Unable to get any history from the patient." Please provide an appropriate diagnosis clarifying the Etiology and Acuity of this clinical scenario: [ ] Metabolic Encephalopathy [ ] Toxic Encephalopathy [ x] Toxic - Metabolic Encephalopathy [ ] Septic Encephalopathy with Sepsis [ ] Septic Encephalopathy without Sepsis [ ] Acute Hepatic Encephalopathy [ ] Subacute Hepatic Encephalopathy [ ] Encephalopathy [ ] Other: [ ] Unable To Determine [ ]Comment/Explanation: Present on Admission: [x ] Yes (Y) [ ] Clinically undeterminable (W) [ ] No (N) Please also document response in your Progress Notes and/or Discharge Summary and indicate if the condition was present on admission. KARON
== END 2016-10-20 14:25 | disposition home or self-care (01) | DRG 388 ==
LOC: ED 20:01 → 4A 10-07 10:42 → 3A 10-16 18:11
PROVIDERS: ADMIT Internal Medicine; ATTEND Internal Medicine
DX: K56.7 Ileus, unspecified (principal); G92 Toxic encephalopathy; E87.1 Hypo-osmolality and hyponatremia; N30.00 Acute cystitis without hematuria; I10 Essential (primary) hypertension; F79 Unspecified intellectual disabilities; E78.5 Hyperlipidemia, unspecified; K59.00 Constipation, unspecified; Z90.49 Acquired absence of other specified parts of digestive tract
CPT/HCPCS: 36415; 51702; 71010; 74000; 74020; 74176; 76770; 80048; 80053; 81001; 82140; 83690; 83735; 83880; 84100; 85007; 85025; 85027; 87086; 96374; J0696; J1630; J1644; J1940; J2060; J7030; J7042

== ENCOUNTER 2017-06-30 10:51 | Inpatient (IN) | payer MEDICAID ==
[~2017-06-30 10:51] MED LIST: ADRENALIN ONE; NACL 0.9% 1000 ML 2,000 ML IV ONE
[2017-06-30] MEDS ORDERED: NACL 0.9% 1000 ML 1,000 ML ONE ×2 (11:19→12:36)
[2017-06-30] MEDS ORDERED: ARTIFICIAL TEARS OPHTH OINT OU PRN (11:26)
[2017-06-30] MEDS ORDERED: VASELINE LIP THERAPY TP PRN (11:26)
--- NOTE | 2017-06-30 11:47 | Emergency Department Report ---
HPI - General Time Seen by Provider: 06/30/17 11:25 - HPI HPI: This is a 62-year-old male who presents to the emergency department from his psychiatrist's office with shortness of breath, weakness and lethargy. The patient was going for a normal checkup with the psychiatrist when they noticed that he was pale, diaphoretic and starting to have some abnormal breathing. Patient has a history of some type of mental retardation, urinary retention with suprapubic Hurtado catheter, dysphagia with recent PEG tube placement, hyperlipidemia. The patient is aphasic at baseline. Patient's caregivers are bedside giving some history but patient is a poor historian secondary to his chronic conditions and his current medical status. ED Past Medical Hx - Past Medical History Previous Medical History?: Yes Hx Congestive Heart Failure: (Unknown) Hx Diabetes: (Unknown) Hx Deep Vein Thrombosis: No Hx Renal Disease: (urinary retention) Hx Psychiatric Treatment: Yes (MR) Hx Asthma: (Unknown) Hx COPD: (Unknown) Additional medical history: MR. dysphagia. myopia. high cholesterol. chronic constipation - Surgical History Past Surgical History?: Yes Hx Pacemaker: No Hx Internal Defibrillator: No Additional Surgical History: volvulus with partial colectomy. indwelling suprapubic urinary catheter. PEG tube - Social History Smoking Status: Unknown if ever smoked Substance Use Type: None - Medications Home Medications: Home Medications Medication Instructions Recorded Confirmed Last Taken Type Calcium Carbonate/Vitamin D3 200 units PO DAILY #30 tablet 10/01/16 10/27/16 Unknown Rx [Calcium 500-Vit D3 400 Tablet] Hydrochlorothiazide [HCTZ] 25 mg PO QDAY #30 tablet 10/01/16 10/27/16 Unknown Rx Magnesium Hydroxide [Milk of 30 ml PO Q4H PRN #30 oral.liqd 10/01/16 10/27/16 Unknown Rx Magnesia] Pantoprazole [Protonix TAB] 20 mg PO QDAY #30 tablet. 10/01/16 10/27/16 Unknown Rx Calcium Carbonate/Vitamin D3 1 tab PO QDAY 10/27/16 10/27/16 Unknown History [Oyster Shell 500-Vit D3 200 Tb] Lactulose 15 ml PO QHS PRN 10/27/16 10/27/16 Unknown History Natural Fiber 1 tbsp PO BID 10/27/16 10/27/16 Unknown History Bisacodyl [Dulcolax suppos] 10 mg NM QDAY PRN #30 supp.rect 10/30/16 Unknown Rx Cholecalciferol (Vitamin D3) 1 cap PO QDAY #30 capsule 10/30/16 Unknown Rx [Vitamin D3 2,000 unit] Cholecalciferol Vit D3 [Vitamin D3] 2,000 unit PO QDAY #30 tablet 10/30/16 Unknown Rx Lisinopril [Zestril TAB] 40 mg PO QDAY #30 tablet 10/30/16 Unknown Rx Lisinopril [Zestril TAB] 40 mg PO QDAY #30 tablet 10/30/16 Unknown Rx Multivit with Calcium,Iron,Min 1 tab PO DAILY #30 tablet 10/30/16 Unknown Rx [Therapeutic M] OXcarbazepine [Trileptal] 300 mg PO BID #30 tablet 10/30/16 Unknown Rx OXcarbazepine [Trileptal] 300 mg PO BID #60 tablet 10/30/16 Unknown Rx Polyethylene Glycol 3350 [Miralax 17 gm PO QDAY #30 packet 10/30/16 Unknown Rx 3350] Polyethylene Glycol 3350 [Miralax 17 gm PO QDAY #30 powd.pack 10/30/16 Unknown Rx 3350] Psyllium Seed (with Sugar) 1 each PO BID #60 packet 10/30/16 Unknown Rx [Metamucil] QUEtiapine [SEROquel] 200 mg PO BID #30 tablet 10/30/16 Unknown Rx Tamsulosin [Flomax] 0.4 mg PO BID #60 capsule 10/30/16 Unknown Rx Tamsulosin [Flomax] 0.4 mg PO BID #60 capsule 10/30/16 Unknown Rx ED Review of Systems ROS: Stated complaint: SAIGE Other details as noted in HPI Comment: Unobtainable due to pts medical conditions Physical Exam - Physical Exam Physical Exam: GENERAL: The patient is ill appearing. HENT: Normocephalic. Atraumatic. Patient has moist mucous membranes. EYES: Pupils equal reactive to light bilaterally. NECK: Supple. Trachea is midline. CHEST/LUNGS: Slightly coarse breath sounds and some rhonchi heard. There is tachypnea, accessory muscle use. The patient is agonally breathing/gasping. There is respiratory distress noted. HEART/CARDIOVASCULAR: Regular. There is no tachycardia. There is no murmur. ABDOMEN: Abdomen is nontender. Patient has normal bowel sounds. There is moderate abdominal distention. SKIN: pale, cool, dry. NEURO: The patient is awake but not responding to commands. He does withdraw from painful stimuli. MUSCULOSKELETAL: There is no tenderness or deformity. There is no evidence of acute injury. ED Course - Reevaluation(s) Reevaluation #1: Patient presented pale, weak, lethargic, diaphoretic with agonal respirations. This reason the patient was intubated. As we were setting up for intubation, the patient started vomiting. We moved the head of the bed up and began suctioning the patient. Once this began to pass, the patient was intubated using a glydescope and the intubation appeared successful. Shortly after intubation, the patient began having bradycardia down into the 30s and 20s. At this point it was difficult to palpate a pulse and ACLS protocol was started. The patient received a total of 5 rounds of ACLS including 5 epinephrine, one of sodium bicarbonate and 1 calcium. The IV blew in the middle of resuscitation so I placed a left tibial IO. The patient started off appearing asystolic but each subsequent rhythm check appeared to be PEA. After the fifth round, the patient had return of spontaneous circulation. His heart rate went up to about 120, he had a blood pressure of about 110 systolic and had a palpable and audible pulses in heartbeat. He was started on IV fluids and we will continue our evaluation. 06/30/17 11:47 - ABG Interpretation Ph: [phone] PCO2: 40 PO2: 148 Bicarbonate: 18 Interpretation: metabolic acidosis, other (lactic acidosis) - Central Line Placement Right IJ Consent Obtained: emergent situation Time Out Performed: Yes Patient Placed on Monitor/Pulse Ox: Yes MD Prep: mask, gown, gloves Central Line Prep: Chlorhexidine scrub Ultrasound Used for Placement: Yes Central Line Lumen Inserted: triple Bloods Obtained for Lab: Yes Central Line Position: good blood return, all ports aspirated, flus, sutured in place with nyl Dressing Applied: Tegaderm Patient Tolerated Procedure: well Complications: none - Intubation Time Out Performed: Yes Sedative: Etomidate Mg Given: 20 Paralytic: Rocuronium Mg Given: 80 Laryngoscope: other (glydescope) Size: 3 ET Tube Size: 7.5 Tube Secured Depth (cm): 23 Tube Secured Location: lips Tube Placement Confirmation: visualized tube passing t, equal breath sounds bilat Patient Tolerated Procedure: well Additional Comments: The patient vomited prior to intubation attempt. He was suctioned and then intubated. - IO Left Tibia Consent Obtained: emergent situation Time Out Performed: No IO Instrument Used to Penetrate the Cortex: battery powered IO drill Patient Tolerated Procedure: well Complications: none ED Medical Decision Making - Lab Data Result diagrams: 06/30/17 11:36 06/30/17 11:36 - EKG Data -: EKG Interpreted by Me EKG shows normal: sinus rhythm, axis, intervals, QRS complexes, ST-T waves Rate: tachycardia (127 bpm) - EKG Data When compared to previous EKG there are: previous EKG unavailable Interpretation: other (Sinus tachycardia) - Radiology Data Radiology results: report reviewed, image reviewed interpreted by me: Chest x-ray shows that the ET tube is in appropriate position just above the georgi. There is some prominent vascular congestion. There is a right upper lobe opacity concerning for pneumonia. No pneumothorax. EXAM: CT ABDOMEN PELVIS WO CON HISTORY: Free air? Abd distention TECHNIQUE: Noncontrast CT of the abdomen and pelvis performed. No IV or gastrointestinal contrast was administered. Coronal and sagittal reformatted images were obtained. PRIORS: 09/21/2016 FINDINGS: The majority of the colon is dilated and demonstrates stool in air-fluid levels. This has worsened in the interval. There is a point of caliber transition involving the proximal sigmoid colon where the bowel curves around mesenteric vessels and there is a crossing loops of distal ileum. There is gaseous distention of bowel distal to the point of caliber transition as well. There is no evidence of complete bowel obstruction. Partial bowel obstruction perhaps caused by an internal hernia is a possibility. Its findings could alternatively represent Gwynedd's syndrome and may not be due to obstruction. There is a gastrostomy tube. Within the limitations of a non-enhanced study, the visualized liver, spleen, pancreas, adrenal glands and kidneys demonstrate no significant abnormalities. There is airspace disease/consolidation of visualized lower lungs with a complex left-sided moderate pleural effusion. IMPRESSION: Marked gaseous distention of colon degree of which is greater as compared to the prior.. There is a focal caliber transition in proximal sigmoid colon but also gas distal to this point of transition. Findings could reflect a partial distal colonic obstruction or may just represent Hakeem syndrome. Bilateral lower lobe consolidations with complex moderate-sized left pleural effusion. Transcribed By: JARRETT Dictated By: GERARDO GREER MD Electronically Authenticated By: GERARDO GREER MD Signed Date/Time: 06/30/17 1415 EXAM: CT HEAD/BRAIN WO CON HISTORY: AMS TECHNIQUE: A noncontrast CT of the head was performed. PRIORS: None. FINDINGS: Air-fluid level in the sphenoid sinus which may reflect acute sinusitis. There is no intracranial hemorrhage, edema, mass effect or midline shift. Ventricular size is appropriate for brain volume. There is no abnormal extra-axial fluid collections seen. There is no skull fracture. IMPRESSION: Sphenoid sinus air-fluid level seen which could reflect acute sinusitis. Otherwise no acute intracranial abnormality seen. Transcribed By: JARRETT Dictated By: GERARDO GREER MD Electronically Authenticated By: GERARDO GREER MD Signed Date/Time: 06/30/17 1353 - Medical Decision Making The patient originally presented with some weakness, respiratory distress, looking pale and diaphoretic. He was having agonal respirations and the decision was made to intubate the patient. Just after the patient was intubated he had bradycardia and then appeared to go pulseless and asystolic. As previously mentioned, the patient had about 5 rounds of ACLS prior to return of spontaneous circulation. Patient got 2 L of IV fluid but still started to have some hypotension with a map of about 60 or below. For this reason I placed a right IJ CVC and Levophed was started. Labs show a leukocytosis, some mild anemia, renal insufficiency, severe lactic acidosis. Troponins are still within the normal range but are trending upwards. EKG did not show any signs of ST elevation UT or significant dysrhythmia. Chest x-ray shows concerning for right upper lobe opacity. For this reason blood cultures were sent and the patient was started on antibiotics. The patient received some IV fluid he is having more opacities and infiltrates showing up on chest x-ray and might be starting to show some signs of vascular congestion. However despite the Levophed and IV fluid resuscitation, the patient continues to have some hypotension. The patient will be admitted to the ICU and has been accepted for admission by the hospitalist, Dr Kumar. 07/01/17 6A: In reviewing this patient's chart, I am aware of the patient's expiration after admission to the critical-care unit. - Differential Diagnosis CHF, UT, Dysrythmia, PE, Sepsis, Pneumonia Critical Care Time: Yes Critical care time in (mins) excluding proc time.: 40 Critical care attestation.: If time is entered above; I have spent that time in minutes in the direct care of this critically ill patient, excluding procedure time. Critical care time was spent on this patient during his initial evaluation, multiple re-evaluations , ordering and interpretation of labs and imaging, IV fluid resuscitation, administration of medication, and disposition planning. This does not include the time spent doing the intubation and central line procedures. Critical Care Time: 40 minutes ED Disposition Clinical Impression: Cardiac arrest, Lactic acidosis, Renal insufficiency Respiratory failure Qualifiers: Chronicity: acute Respiratory failure complication: unspecified whether with hypoxia or hypercapnia Qualified Code(s): J96.00 - Acute respiratory failure, unspecified whether with hypoxia or hypercapnia Hypotension Qualifiers: Hypotension type: unspecified hypotension type Qualified Code(s): I95.9 - Hypotension, unspecified Pneumonia Qualifiers: Pneumonia type: due to unspecified organism Laterality: right Lung location: upper lobe of lung Qualified Code(s): J18.1 - Lobar pneumonia, unspecified organism Disposition: DC-20 Is pt being admited?: Yes Condition: Critical Time of Disposition: 15:51
--- NOTE | 2017-06-30 11:59 | XRay Report ---
AP CHEST: HISTORY: Endotracheal tube placement Compared to 10/18/16. An endotracheal tube has been inserted which terminates 1.4 cm superior to the georgi. Consider retraction. A nasogastric tube is followed to the left upper quadrant presumably terminating in the stomach. Normal heart size. There is hazy right upper lobe opacity which could represent infiltrate or focal congestion. New small left pleural effusion or left pleural thickening is identified. There appears to be a large amount of gas in the upper abdomen. I cannot confidently exclude free air in the abdomen on this limited portable view. Consider further evaluation of the abdomen. IMPRESSION: Lines and tubes as described. Hazy right upper lobe opacity and left pleural effusion/pleural thickening. Question of free air in the abdomen, see above and consider further imaging.
[2017-06-30 12:09] LABS: Hemoglobin 9.9 gm/dl (11.8-15.2)
[2017-06-30 12:10] LABS: Hematocrit 30.4 % (35.5-45.6); Mean Corpuscular HGB Conc 33 % (32-34); Mean Corpuscular Hemoglobin 32 pg (28-32); Mean Corpuscular Volume 98 fl (84-94); Platelet Count 439 K/mm3 (140-440); Red Cell Distribution Width 15.3 % (13.2-15.2)
[2017-06-30 12:13] LABS: INR 1.7 (0.87-1.13)
[2017-06-30 12:14] LABS: Partial Thromboplastin Time 32.1 Sec. (24.2-36.6)
[2017-06-30 12:15] LABS: Alanine Aminotransferase 15 units/L (7-56); Albumin 2.9 g/dL (3.9-5); BUN/Creatinine Ratio 15; Blood Urea Nitrogen 24 mg/dL (9-20); Calcium 10.2 mg/dL (8.4-10.2); Hemolysis Index 30
[2017-06-30] MEDS ORDERED: LEVAQUIN 750MG/150ML 750 MG/150 ML BAG IV ONE (13:12)
--- NOTE | 2017-06-30 13:55 | XRay Report ---
AP CHEST: 06/30/17 13:36 CLINICAL: Central line insertion. COMPARISON: Same day 11:40 FINDINGS: Since the last exam, a right IJ catheter has been inserted and the tip is in the distal SVC. The endotracheal tube tip remains slightly above the georgi. The nasogastric tube tip is below the diaphragm and not imaged. Increased opacification in the right upper lobe with air bronchograms and new prominent air bronchograms in the right lung base. The lungs are otherwise unchanged. No pneumothorax. The heart is normal size. The pulmonary vessels are indistinct. Massive distention of the colon with debris in the colon. No pneumoperitoneum. IMPRESSION: Satisfactory line placement. No pneumothorax.
--- NOTE | 2017-06-30 13:57 | Cat Scan Report ---
FINAL REPORT EXAM: CT HEAD/BRAIN WO CON HISTORY: AMS TECHNIQUE: A noncontrast CT of the head was performed. PRIORS: None. FINDINGS: Air-fluid level in the sphenoid sinus which may reflect acute sinusitis. There is no intracranial hemorrhage, edema, mass effect or midline shift. Ventricular size is appropriate for brain volume. There is no abnormal extra-axial fluid collections seen. There is no skull fracture. IMPRESSION: Sphenoid sinus air-fluid level seen which could reflect acute sinusitis. Otherwise no acute intracranial abnormality seen.
[2017-06-30] MEDS ORDERED: LEVOPHED 8 MG in NACL 0.9% 250ML 242 ML IV SCH (14:00)
--- NOTE | 2017-06-30 14:20 | Cat Scan Report ---
FINAL REPORT EXAM: CT ABDOMEN PELVIS WO CON HISTORY: Free air? Abd distention TECHNIQUE: Noncontrast CT of the abdomen and pelvis performed. No IV or gastrointestinal contrast was administered. Coronal and sagittal reformatted images were obtained. PRIORS: 09/21/2016 FINDINGS: The majority of the colon is dilated and demonstrates stool in air-fluid levels. This has worsened in the interval. There is a point of caliber transition involving the proximal sigmoid colon where the bowel curves around mesenteric vessels and there is a crossing loops of distal ileum. There is gaseous distention of bowel distal to the point of caliber transition as well. There is no evidence of complete bowel obstruction. Partial bowel obstruction perhaps caused by an internal hernia is a possibility. Its findings could alternatively represent Hakeem's syndrome and may not be due to obstruction. There is a gastrostomy tube. Within the limitations of a non-enhanced study, the visualized liver, spleen, pancreas, adrenal glands and kidneys demonstrate no significant abnormalities. There is airspace disease/consolidation of visualized lower lungs with a complex left-sided moderate pleural effusion. IMPRESSION: Marked gaseous distention of colon degree of which is greater as compared to the prior.. There is a focal caliber transition in proximal sigmoid colon but also gas distal to this point of transition. Findings could reflect a partial distal colonic obstruction or may just represent Turlock syndrome. Bilateral lower lobe consolidations with complex moderate-sized left pleural effusion.
--- NOTE | 2017-06-30 14:25 | History and Physical Report ---
History of Present Illness Chief complaint: confused History of present illness: 62 YO Male who resides at a [facility] with MR, Dysphagia, Chronic Constipation presents to ED for evaluation. Pt unable to provide history,but history taken from EMS, ED staff, and medical record. Pt presents to the emergency department from his psychiatrist's office. Pt seen and evaluated for routine appointment, but was found to have skin pallor, shortness of breath, weakness and confusion. EMS notified and upon arrival the patient was found to have respiratory distress. Pt transported to [facility] for further care and evaluation. Pt seen and evaluated in ED and found to have evidence of sepsis and pneumonia. Pt also experienced acute respiratory failure complicated by cardiac arrest and treated IAW ACLS protocol with return of perfusing rhythm. Pt intubated, placed on vent support as well as initiated on pressors and admitted to ICU. Past History Past Medical History: hyperlipidemia, other (MR, Dysphagia, ) Past Surgical History: Other ( volvulus with partial colectomy,PEG/SPT) Social history: single. denies: smoking, alcohol abuse, prescription drug abuse Family history: no significant family history (reviewed) Medications and Allergies Allergies Allergy/AdvReac Type Severity Reaction Status Date / Time No Known Allergies Allergy Verified 09/21/16 10:56 Home Medications Medication Instructions Recorded Confirmed Last Taken Type Calcium Carbonate/Vitamin D3 200 units PO DAILY #30 tablet 10/01/16 10/27/16 Unknown Rx [Calcium 500-Vit D3 400 Tablet] Hydrochlorothiazide [HCTZ] 25 mg PO QDAY #30 tablet 10/01/16 10/27/16 Unknown Rx Magnesium Hydroxide [Milk of 30 ml PO Q4H PRN #30 oral.liqd 10/01/16 10/27/16 Unknown Rx Magnesia] Pantoprazole [Protonix TAB] 20 mg PO QDAY #30 tablet. 10/01/16 10/27/16 Unknown Rx Calcium Carbonate/Vitamin D3 1 tab PO QDAY 10/27/16 10/27/16 Unknown History [Oyster Shell 500-Vit D3 200 Tb] Lactulose 15 ml PO QHS PRN 10/27/16 10/27/16 Unknown History Natural Fiber 1 tbsp PO BID 10/27/16 10/27/16 Unknown History Bisacodyl [Dulcolax suppos] 10 mg [place] QDAY PRN #30 supp.rect 10/30/16 Unknown Rx Cholecalciferol (Vitamin D3) 1 cap PO QDAY #30 capsule 10/30/16 Unknown Rx [Vitamin D3 2,000 unit] Cholecalciferol Vit D3 [Vitamin D3] 2,000 unit PO QDAY #30 tablet 10/30/16 Unknown Rx Lisinopril [Zestril TAB] 40 mg PO QDAY #30 tablet 10/30/16 Unknown Rx Lisinopril [Zestril TAB] 40 mg PO QDAY #30 tablet 10/30/16 Unknown Rx Multivit with Calcium,Iron,Min 1 tab PO DAILY #30 tablet 10/30/16 Unknown Rx [Therapeutic M] OXcarbazepine [Trileptal] 300 mg PO BID #30 tablet 10/30/16 Unknown Rx OXcarbazepine [Trileptal] 300 mg PO BID #60 tablet 10/30/16 Unknown Rx Polyethylene Glycol 3350 [Miralax 17 gm PO QDAY #30 packet 10/30/16 Unknown Rx 3350] Polyethylene Glycol 3350 [Miralax 17 gm PO QDAY #30 powd.pack 10/30/16 Unknown Rx 3350] Psyllium Seed (with Sugar) 1 each PO BID #60 packet 10/30/16 Unknown Rx [Metamucil] QUEtiapine [SEROquel] 200 mg PO BID #30 tablet 10/30/16 Unknown Rx Tamsulosin [Flomax] 0.4 mg PO BID #60 capsule 10/30/16 Unknown Rx Tamsulosin [Flomax] 0.4 mg PO BID #60 capsule 10/30/16 Unknown Rx Active Meds: Active Medications Hydrophilic Ointment (Vaseline Lip Therapy) 1 applic TP Q2HR PRN PRN Reason: Dry Lips Levofloxacin/Dextrose (Levaquin 750mg/150ml) 750 mg in 150 mls @ 100 mls/hr IV ONCE ONE Stop: 06/30/17 14:41 Last Admin: 06/30/17 13:38 Dose: 100 mls/hr Norepinephrine 8 mg/ Sodium (Chloride) 250 mls @ 3.75 mls/hr IV TITR NORBERTO; Protocol Last Admin: 06/30/17 13:47 Dose: 2 mcg/min, 3.75 mls/hr Multi-Ingred Cream/Lotion/Oil/Oint (Artificial Tears Ophth Oint) 1 applic OU Q4HR PRN PRN Reason: Dry Eye(s) Review of Systems ROS unobtainable: due to mental status Exam - Constitutional Vitals: Temp Pulse Resp BP Pulse Ox 133 H 140/87 100 06/30/17 12:19 06/30/17 12:19 06/30/17 12:19 General appearance: Present: severe distress - EENT Eyes: Present: miosis - Neck Neck: Present: supple - Respiratory Respiratory effort: labored Respiratory: bilateral: diminished - Cardiovascular Heart Sounds: Present: S1 & S2. Absent: rub, click - Extremities Extremities: pulses symmetrical, No edema Peripheral Pulses: within normal limits - Abdominal General gastrointestinal: Present: soft, non-tender, non-distended, normal bowel sounds Male genitourinary: Present: normal - Integumentary Integumentary: Present: clear, dry, clammy, decreased turgor - Musculoskeletal Musculoskeletal: generalized weakness - Psychiatric Psychiatric: no intact judgment & insight, no memory intact - Neurologic Neurologic: no moves all extremities, no gait normal Results - Labs CBC & Chem 7: 06/30/17 11:36 06/30/17 11:36 Labs: Abnormal lab results 06/30/17 06/30/17 06/30/17 Range/Units 11:08 11:36 11:36 WBC 17.7 H (4.5-11.0) K/mm3 RBC 3.10 L (3.65-5.03) M/mm3 Hgb 9.9 L (11.8-15.2) gm/dl Hct 30.4 L (35.5-45.6) % MCV 98 H (84-94) fl RDW 15.3 H (13.2-15.2) % PT 21.0 H (12.2-14.9) Sec. INR 1.70 H (0.87-1.13) POC ABG pH (7.35-7.45) POC ABG pO2 (80-105) Sodium (137-145) mmol/L Potassium (3.6-5.0) mmol/L Chloride (98-107) mmol/L Carbon Dioxide (22-30) mmol/L BUN (9-20) mg/dL Creatinine (0.8-1.5) mg/dL Glucose (75-100) mg/dL POC Glucose 232 H (70-105) Lactic Acid (0.7-2.0) mmol/L Albumin (3.9-5) g/dL 06/30/17 06/30/17 06/30/17 Range/Units 11:36 11:36 12:09 WBC (4.5-11.0) K/mm3 RBC (3.65-5.03) M/mm3 Hgb (11.8-15.2) gm/dl Hct (35.5-45.6) % MCV (84-94) fl RDW (13.2-15.2) % PT (12.2-14.9) Sec. INR (0.87-1.13) POC ABG pH 7.268 L (7.35-7.45) POC ABG pO2 148 H (80-105) Sodium 134 L (137-145) mmol/L Potassium 3.5 L (3.6-5.0) mmol/L Chloride 89.3 L (98-107) mmol/L Carbon Dioxide 17 L (22-30) mmol/L BUN 24 H (9-20) mg/dL Creatinine 1.6 H (0.8-1.5) mg/dL Glucose 239 H (75-100) mg/dL POC Glucose (70-105) Lactic Acid 11.00 H* (0.7-2.0) mmol/L Albumin 2.9 L (3.9-5) g/dL Assessment and Plan - Patient Problems (1) Sepsis Current Visit: Yes Status: Acute Qualifiers: Sepsis type: sepsis due to unspecified organism Qualified Code(s): A41.9 - Sepsis, unspecified organism Plan to address problem: IV Antibiotics, Blood Cultures, Urinalysis, Chest X ray, monitor uop q shift, IVF resuscitation, IV pressor support, The high probability of a clinically significant, sudden or life threatening deterioration of the [cardiac, renal, neuro, pulmonary] system(s) required my full and direct attention, intervention and personal management. The aggregate critical care time was [65] minutes. This time is in addition to time spent performing reported procedures but includes the following: [x] Data Review and interpretation [x] Patient assessment and monitoring of vital signs [x] Documentation [x] Medication orders and management (2) Respiratory failure Current Visit: Yes Status: Acute Qualifiers: Chronicity: acute Respiratory failure complication: hypoxia Qualified Code(s): J96.01 - Acute respiratory failure with hypoxia Plan to address problem: Supplemental oxygen, nebulizer therapy, wean vent as tolerated, daily SBT, daily sedation holiday, ABG in AM, D dimer, CTA chest to evaluate for PE, therapeutic lovenox for 24 hrs until results of CTA chest available. (3) Pneumonia Current Visit: Yes Status: Acute Qualifiers: Laterality: right Lung location: upper lobe of lung Plan to address problem: IV antibiotics, IVF resuscitation, blood cultures, supportive care. (4) ARF (acute renal failure) Current Visit: Yes Status: Acute Qualifiers: Acute renal failure type: with acute tubular necrosis Qualified Code(s): N17.0 - Acute kidney failure with tubular necrosis Plan to address problem: IVF resuscitation, avoid nephrotoxic agents, monitor uop q shift, monitor serum creatnine (5) DVT prophylaxis Current Visit: Yes Status: Acute Plan to address problem: Therapeutic lovenox for 24 hours, until results of CTA chest.
[2017-06-30] MEDS ORDERED: PROVENTIL IH PRN (14:27)
[2017-06-30] MEDS ORDERED: SODIUM CHLORIDE FLUSH SYRINGE 10 ML IV PRN (14:27)
[2017-06-30] MEDS ORDERED: VANCOMYCIN VIAL IV ONE (14:27)
[2017-06-30] MEDS ORDERED: DULCOLAX PR PRN (14:31)
[2017-06-30 14:52] LABS: Anisocytosis 1+; Band Neutrophils # (Manual) 1.6 K/mm3; Basophils % (Manual) 0 % (0.0-1.8); Eosinophils % (Manual) 0 % (0.0-4.3); Macrocytosis Few; Myelocytes # (Manual) 0.4 K/mm3; Platelet Estimate Consistent w Auto; Total Cells Counted 100
[2017-06-30] MEDS ORDERED: NACL 0.9% 1000 ML 2,000 ML IV ONE (14:54)
[2017-06-30] MEDS ORDERED: VANCOMYCIN PHARMACY TO DOSE IV SCH (15:00)
[2017-06-30] MEDS ORDERED: NACL 0.9% 1000 ML IV ONE (15:27)
[2017-06-30] MEDS ORDERED: VANCOMYCIN 1,500 MG in NACL 0.9% 500 ML 500 ML IV SCH (15:30)
[2017-06-30] MEDS ORDERED: ZOSYN/NS 4.5GM/100ML 4.5 GM/100 ML VIAL IV SCH (15:30)
[2017-06-30] MEDS ORDERED: NACL 0.9% 1000 ML 2,000 ML ONE (15:33)
[2017-06-30] MEDS ORDERED: LOVENOX SUB-Q SCH ×2 (15:52→16:00)
[2017-06-30] MEDS ORDERED: INTROPIN DRIP 800 MG/D5W 250 ML 800 MG/250 ML BAG IV SCH (16:00)
[2017-06-30 17:02] VITALS: BP 68/43
--- NOTE | 2017-06-30 17:25 | Consultation ---
History of Present Illness Consult date: 06/30/17 Requesting physician: ROJELIO CUMMINGS Reason for consult: other (Septic shock with MODS) History of present illness: Per medical records. Patient is currently intubated, encephalopathic, on vasopressor support. 62 YO Male who resides at a retirement with MR, Dysphagia, Chronic Constipation presents to ED for evaluation. Pt unable to provide history,but history taken from EMS, ED staff, and medical record. Pt presents to the emergency department from his psychiatrist's office. Pt seen and evaluated for routine appointment, but was found to have skin pallor, shortness of breath, weakness and confusion. EMS notified and upon arrival the patient was found to have respiratory distress. Pt transported to [facility] for further care and evaluation. Pt seen and evaluated in ED and found to have evidence of sepsis and pneumonia. Pt also experienced acute respiratory failure complicated by cardiac arrest and treated IAW ACLS protocol with return of perfusing rhythm. Pt intubated, placed on vent support as well as initiated on pressors and admitted to ICU. I aam currently seeing the patient in the ED. He is hypoxic on MVS with PEEP 10, FIO2 100% at the bedside.....ABGs showed PaO2 of 50. Currently intubated, on norepinephrine at 30mcg/hour, with BP 60/30 Seen and examined with RN and RT Vitals, labs, medications, chart and imaging reviewed. CXR showed a right upper lobe infiltrate with abdominal distension, possible gas under the diaphragm ( personally reviewed). RIJ in place, ETT in position. While at bedside..asystole Started CPR per ACLS protocol Past History Past Medical History: hyperlipidemia, other (MR, Dysphagia, ) Past Surgical History: Other ( volvulus with partial colectomy,PEG/SPT) Social history: single. denies: smoking, alcohol abuse, prescription drug abuse Family history: no significant family history (reviewed) Medications and Allergies Allergies Allergy/AdvReac Type Severity Reaction Status Date / Time No Known Allergies Allergy Verified 09/21/16 10:56 Home Medications Medication Instructions Recorded Confirmed Last Taken Type Calcium Carbonate/Vitamin D3 200 units PO DAILY #30 tablet 10/01/16 10/27/16 Unknown Rx [Calcium 500-Vit D3 400 Tablet] Hydrochlorothiazide [HCTZ] 25 mg PO QDAY #30 tablet 10/01/16 10/27/16 Unknown Rx Magnesium Hydroxide [Milk of 30 ml PO Q4H PRN #30 oral.liqd 10/01/16 10/27/16 Unknown Rx Magnesia] Pantoprazole [Protonix TAB] 20 mg PO QDAY #30 tablet. 10/01/16 10/27/16 Unknown Rx Calcium Carbonate/Vitamin D3 1 tab PO QDAY 10/27/16 10/27/16 Unknown History [Oyster Shell 500-Vit D3 200 Tb] Lactulose 15 ml PO QHS PRN 10/27/16 10/27/16 Unknown History Natural Fiber 1 tbsp PO BID 10/27/16 10/27/16 Unknown History Bisacodyl [Dulcolax suppos] 10 mg [place] QDAY PRN #30 supp.rect 10/30/16 Unknown Rx Cholecalciferol (Vitamin D3) 1 cap PO QDAY #30 capsule 10/30/16 Unknown Rx [Vitamin D3 2,000 unit] Cholecalciferol Vit D3 [Vitamin D3] 2,000 unit PO QDAY #30 tablet 10/30/16 Unknown Rx Lisinopril [Zestril TAB] 40 mg PO QDAY #30 tablet 10/30/16 Unknown Rx Lisinopril [Zestril TAB] 40 mg PO QDAY #30 tablet 10/30/16 Unknown Rx Multivit with Calcium,Iron,Min 1 tab PO DAILY #30 tablet 10/30/16 Unknown Rx [Therapeutic M] OXcarbazepine [Trileptal] 300 mg PO BID #30 tablet 10/30/16 Unknown Rx OXcarbazepine [Trileptal] 300 mg PO BID #60 tablet 10/30/16 Unknown Rx Polyethylene Glycol 3350 [Miralax 17 gm PO QDAY #30 packet 10/30/16 Unknown Rx 3350] Polyethylene Glycol 3350 [Miralax 17 gm PO QDAY #30 powd.pack 10/30/16 Unknown Rx 3350] Psyllium Seed (with Sugar) 1 each PO BID #60 packet 10/30/16 Unknown Rx [Metamucil] QUEtiapine [SEROquel] 200 mg PO BID #30 tablet 10/30/16 Unknown Rx Tamsulosin [Flomax] 0.4 mg PO BID #60 capsule 10/30/16 Unknown Rx Tamsulosin [Flomax] 0.4 mg PO BID #60 capsule 10/30/16 Unknown Rx Active Meds: Active Medications Albuterol (Proventil) 2.5 mg IH Q3HRT PRN PRN Reason: Shortness Of Breath Bisacodyl (Dulcolax) 10 mg [place] QDAY PRN PRN Reason: Constipation unrelieved by MOM Calcium/Vitamin D ([place]ysco D 500 Mg-200 Unit) 1 each PO QDAY [facility] Cholecalciferol (Vitamin D3) 2,000 unit PO QDAY [facility] Enoxaparin Sodium (Lovenox) 80 mg SUB-Q Q12HR NORBERTO Hydrophilic Ointment (Vaseline Lip Therapy) 1 applic TP Q2HR PRN PRN Reason: Dry Lips Norepinephrine 8 mg/ Sodium (Chloride) 250 mls @ 3.75 mls/hr IV TITR NORBERTO; Protocol Last Titration: 06/30/17 14:52 Dose: 10 mcg/min, 18.75 mls/hr Piperacillin Sod/Tazobactam Sod (Zosyn/Ns 4.5gm/100ml) 4.5 gm in 100 mls @ 200 mls/hr IV Q8H NORBERTO; Protocol Vancomycin HCl 1,500 mg/ (Sodium Chloride) 515 mls @ 257.5 mls/hr IV Q24H NORBERTO Last Admin: 06/30/17 16:08 Dose: 257.5 mls/hr Dopamine HCl/Dextrose (Intropin Drip 800 Mg/D5w 250 Ml) 800 mg in 250 mls @ 2.892 mls/hr IV TITR NORBERTO; Protocol Vasopressin 20 unit/ Sodium (Chloride) 101 mls @ 9.09 mls/hr IV TITR NORBERTO; Protocol Multi-Ingred Cream/Lotion/Oil/Oint (Artificial Tears Ophth Oint) 1 applic OU Q4HR PRN PRN Reason: Dry Eye(s) Multivitamins (Theragran Tab) 1 each PO DAILY [facility] Oxcarbazepine (Trileptal) 300 mg PO BID [facility] Pantoprazole Sodium (Protonix) 20 mg PO QDAY [facility] Polyethylene Glycol (Miralax 3350) 17 gm PO QDAY [facility] Psyllium Hydrophilic Mucilloid (Metamucil) 1 each PO BID NORBERTO Quetiapine Fumarate (Seroquel) 200 mg PO BID [facility] Sodium Chloride (Sodium Chloride Flush Syringe 10 Ml) 10 ml IV BID NORBERTO Sodium Chloride (Sodium Chloride Flush Syringe 10 Ml) 10 ml IV PRN PRN PRN Reason: LINE FLUSH Tamsulosin HCl (Flomax) 0.4 mg PO BID NORBERTO Vancomycin HCl (Vancomycin Pharmacy To Dose) 1 each IV PKCONSULT NORBERTO Physical Examination Vital signs: Vital Signs Pulse Pulse Ox 113 H 64 L 06/30/17 10:46 06/30/17 10:46 General appearance: agitated, other (tacypnic) Eyes: non-icteric, other (pale) ENT: oropharynx dry Effort: very labored Ascultation: Bilateral: diminished breath sounds Cardiovascular: regular rate and rhythm, other (No murmurs) Gastrointestinal: hypoactive bowel sounds, other (distended) Integumentary: other (Left IO, mottled lower extremities) Extremities: no edema, cool Musculoskeletal: no deformities unable to assess, other (pupils sluggishly reactive to light) Results - Laboratory Findings CBC and BMP: 06/30/17 11:36 06/30/17 11:36 ABG POC ABG pH 7.365 (7.35-7.45) 06/30/17 15:51 POC ABG pCO2 32.3 (35-45) L 06/30/17 15:51 POC ABG pO2 48 (80-105) L 06/30/17 15:51 POC ABG HCO3 18.5 06/30/17 15:51 POC ABG Total CO2 19 06/30/17 15:51 POC ABG O2 Sat 82 06/30/17 15:51 PT/INR, D-dimer PT 21.0 Sec. (12.2-14.9) H 06/30/17 11:36 INR 1.70 (0.87-1.13) H 06/30/17 11:36 D-Dimer > 40579 ng/mlDDU (0-234) H 06/30/17 11:36 Abnormal lab findings: Abnormal Labs 06/30/17 06/30/17 06/30/17 11:08 11:36 11:36 WBC 17.7 H RBC 3.10 L Hgb 9.9 L Hct 30.4 L MCV 98 H RDW 15.3 H Lymphocytes % (Manual) 10.0 L Monocytes % (Manual) 8.0 H Seg Neutrophils # Man 12.4 H Monocytes # (Manual) 1.4 H PT 21.0 H INR 1.70 H D-Dimer POC ABG pH POC ABG pCO2 POC ABG pO2 Sodium Potassium Chloride Carbon Dioxide BUN Creatinine Glucose POC Glucose 232 H Lactic Acid Albumin 06/30/17 06/30/17 06/30/17 11:36 11:36 11:36 WBC RBC Hgb Hct MCV RDW Lymphocytes % (Manual) Monocytes % (Manual) Seg Neutrophils # Man Monocytes # (Manual) PT INR D-Dimer > 44704 H POC ABG pH POC ABG pCO2 POC ABG pO2 Sodium 134 L Potassium 3.5 L Chloride 89.3 L Carbon Dioxide 17 L BUN 24 H Creatinine 1.6 H Glucose 239 H POC Glucose Lactic Acid 11.00 H* Albumin 2.9 L 06/30/17 06/30/17 06/30/17 12:09 15:22 15:51 WBC RBC Hgb Hct MCV RDW Lymphocytes % (Manual) Monocytes % (Manual) Seg Neutrophils # Man Monocytes # (Manual) PT INR D-Dimer POC ABG pH 7.268 L 7.335 L POC ABG pCO2 32.3 L POC ABG pO2 148 H 46 L 48 L Sodium Potassium Chloride Carbon Dioxide BUN Creatinine Glucose POC Glucose Lactic Acid Albumin - Diagnostic Findings Chest x-ray: image reviewed Assessment and Plan -Severe sepsis with septic shock -Acute hypoxic respiratory failure -Aspiration pneumonia -Acute kidney injuiry, anuric -Acute encephalopathy -Cardiac arrest -Severe lactic acidosis -Cardiac arrest with ROSC after 20 minutes -Stat CBC, cmp and ABG -VAP bundle -Volume resuscitation -Lung protective strategies -Vasopressor support, keep MAP>65 -Increase RR to 30 on mechanical entilator support for better gas exchange. Suspect he will have severe lactic acidosis -Antibiotics - Renal consult -ID consult -Continue empiric antibiotics -Cultures -Family to be notified, as he is critically ill at risk of another cardiac event The high probability of a clinically significant, sudden or life threatening deterioration of the [cardiac, renal, neuro, pulmonary] system(s) required my full and direct attention, intervention and personal management. The aggregate critical care time was [75] minutes. This time is in addition to time spent performing reported procedures but includes the following: [x] Data Review and interpretation [x] Patient assessment and monitoring of vital signs [x] Documentation [x] Medication orders and management
[2017-06-30] MEDS ORDERED: Vasostrict 20 UNIT in NACL 0.9% 100 ML IV SCH (18:00)
[2017-06-30] MEDS ORDERED: NEO-SYNEPHRINE 100 MG in NACL 0.9% 90 ML IV SCH (18:15)
[2017-06-30] MEDS ORDERED: SODIUM BICARBONATE 150 MEQ in D5W 1,000 ML IV SCH (19:00)
--- NOTE | 2017-06-30 19:12 | Death Note ---
Note Date of : 06/30/17 Time of : 18:47 Time Pronounced: 18:47 - Preliminary Cause of (problem) (1) Sepsis Qualifiers: Sepsis type: sepsis due to unspecified organism Qualified Code(s): A41.9 - Sepsis, unspecified organism Preliminary cause of (2) Respiratory failure Qualifiers: Chronicity: acute Respiratory failure complication: hypoxia Qualified Code(s): J96.01 - Acute respiratory failure with hypoxia Preliminary cause of (3) Pneumonia Qualifiers: Laterality: right Lung location: upper lobe of lung Preliminary cause of (4) ARF (acute renal failure) Qualifiers: Acute renal failure type: with acute tubular necrosis Qualified Code(s): N17.0 - Acute kidney failure with tubular necrosis Preliminary cause of (5) DVT prophylaxis Preliminary cause of
--- NOTE | 2017-06-30 19:21 | Death Summary ---
Summary - Providers Consults: 06/30/17 11:26 Consult to Dietitian/Nutrition [CONS] Routine Physician Instructions: Reason For Exam: Reason for Consult: Evaluate nutritional intake 06/30/17 16:24 Consult to Physician [CONS] Routine Comment: Consulting Provider: RENATA SUMMERS Physician Instructions: Reason For Exam: resp failure Attending: ROJELIO CUMMINGS - summary Date of admission: 06/30/17 14:27 Date of : 06/30/17 Disposition: Pt admitted for sepsis and respiratory failure. Pt experienced asystolic arrest at admission. Pt treated IAW ACLS protocol with return of perfusing rhythm. Pt initiated on sepsis protocol, Intubated, and placed on vent support. Pt convalesced poorly. Pt coded twice, without return of perfusing cardiac rhythm during the final code. Pt pupils fixed, and dilated, absent breath sounds, as well as asystole on cardiac rehabilitation program director. Pt pronounced . - Final diagnosis (1) Sepsis Qualifiers: Sepsis type: sepsis due to unspecified organism Qualified Code(s): A41.9 - Sepsis, unspecified organism Note: Final diagnosis: (2) Respiratory failure Qualifiers: Chronicity: acute Respiratory failure complication: hypoxia Qualified Code(s): J96.01 - Acute respiratory failure with hypoxia Note: Final diagnosis: (3) Pneumonia Qualifiers: Laterality: right Lung location: upper lobe of lung Note: Final diagnosis: (4) ARF (acute renal failure) Qualifiers: Acute renal failure type: with acute tubular necrosis Qualified Code(s): N17.0 - Acute kidney failure with tubular necrosis Note: Final diagnosis: (5) DVT prophylaxis Note: Final diagnosis:
[2017-06-30] MEDS ORDERED: METAMUCIL PO SCH (22:00)
[2017-06-30] MEDS ORDERED: TRILEPTAL PO SCH (22:00)
[2017-06-30] MEDS ORDERED: FLOMAX PO SCH (22:00)
[2017-06-30] MEDS ORDERED: SODIUM CHLORIDE FLUSH SYRINGE 10 ML IV SCH (22:00)
[2017-07-01] MEDS ORDERED: [UNRECOGNIZED DRUG - OTHER] PO SCH (10:00)
[2017-07-01] MEDS ORDERED: MIRALAX 3350 PO SCH (10:00)
[2017-07-01] MEDS ORDERED: THERAGRAN Tab PO SCH (10:00)
[2017-07-01] MEDS ORDERED: PROTONIX PO SCH (10:00)
[2017-07-01] MEDS ORDERED: CHOLECALCIFEROL PO SCH (10:00)
[2017-07-01] MEDS ORDERED: VITAMIN D3 PO SCH (10:00)
[2017-07-01] MEDS ORDERED: MULTIVIT WITH CALCIUM IRON MIN PO SCH (10:00)
[2017-07-01] MEDS ORDERED: CALCIUM CARBONATE PO SCH (10:00)
[2017-07-01] MEDS ORDERED: OYSCO D 500 MG-200 UNIT PO SCH (10:00)
== END 2017-06-30 21:30 | DRG 871 ==
LOC: ED 10:51 → CC1 14:27
PROVIDERS: ADMIT Internal Medicine; ATTEND Internal Medicine
PROC: 05HY33Z Insertion of Infusion Device into Upper Vein, Percutaneous Approach (ICD-10-PCS; principal; 2017-06-30)
PROC: 0BH17EZ Insertion of Endotracheal Airway into Trachea, Via Natural or Artificial Opening (ICD-10-PCS; 2017-06-30)
PROC: 4A033R1 Measurement of Arterial Saturation, Peripheral, Percutaneous Approach (ICD-10-PCS; 2017-06-30)
PROC: 5A1935Z Respiratory Ventilation, Less than 24 Consecutive Hours (ICD-10-PCS; 2017-06-30)
DX: A41.9 Sepsis, unspecified organism (principal); J96.01 Acute respiratory failure with hypoxia; R65.21 Severe sepsis with septic shock; J69.0 Pneumonitis due to inhalation of food and vomit; G93.40 Encephalopathy, unspecified; N17.0 Acute kidney failure with tubular necrosis; E78.00 Pure hypercholesterolemia, unspecified; E78.5 Hyperlipidemia, unspecified; I46.9 Cardiac arrest, cause unspecified; Z79.899 Other long term (current) drug therapy; N17.9 Acute kidney failure, unspecified
CPT/HCPCS: 36415; 36600; 70450; 71045; 74176; 80053; 82140; 82803; 82962; 84484; 85007; 85025; 85379; 85610; 85730; 86850; 86900; 86901; 87040; 93005; 93010; 94002; J0171; J1956; J2370; J2543; J3370; J7030; J7040; J7050; J7070